=== PATIENT | female | born 1935 | race Caucasian/White ===

== ENCOUNTER 2016-08-09 15:41 | Outpatient (CLI) | payer MEDICARE, OTHER | END 2016-08-09 15:42 | disposition home or self-care (01) | DX: N18.2 Chronic kidney disease, stage 2 (mild) (principal) ==

== ENCOUNTER 2017-08-29 10:30 | Outpatient (CLI) | payer MEDICARE, OTHER ==
--- NOTE | 2017-08-29 12:46 | Ultrasound Report ---
COMPLETE ABDOMINAL ULTRASOUND: 08/29/2017 CLINICAL INDICATION: Abdominal pain. TECHNIQUE: Real-time scanning was performed with career representative static images obtained. FINDINGS: The liver measures 14.2 cm. Hepatic echogenicity is increased. There are two focal lesions seen in the right lobe of the liver, the larger anteriorly measuring 6.0 x 4.5 x 4.4 cm, and the smaller posteriorly measuring 3.0 x 2.4 x 2.2 cm. These are mildly echogenic with respect to the rest of the liver, and may represent hepatic hemangiomas. Further evaluation with liver protocol CT is recommended. The common bile duct measures 5 mm. The gallbladder is normal, as is the visualized pancreas. The kidneys are normal, with the right measuring 9.8 cm and the left measuring 9.6 cm. The spleen measures 8.4 cm, and demonstrates calcifications of old granulomatous disease. The abdominal aorta is normal in caliber. The inferior vena cava is unremarkable. No free fluid is present. Scanning of the region of pain identified by the patient in the left lower quadrant demonstrates no evidence of solid mass or hernia. IMPRESSION: POSSIBLE HEPATIC HEMANGIOMAS. FURTHER EVALUATION WITH LIVER PROTOCOL CT IS RECOMMENDED. TD: 08/29/2017 12:29 EBONY
== END 2017-08-29 10:31 | disposition home or self-care (01) ==
LOC: DI 10:30
PROVIDERS: ATTEND Internal Medicine
DX: R93.5 Abnormal findings on diagnostic imaging of other abdominal regions, including retroperitoneum (principal)
CPT/HCPCS: 76700

== ENCOUNTER 2017-09-26 08:41 | Outpatient (CLI) | END 2017-09-26 08:42 | disposition home or self-care (01) ==

== ENCOUNTER 2018-01-06 05:23 | Emergency (ER) | payer MEDICARE, OTHER ==
--- NOTE | 2018-01-06 05:39 | ED Physician Documentation ---
History of Present Illness - Stated complaint Stated Complaint: HIGH BLOOD PRESSURE - Chief complaint Chief Complaint: General - History obtained from History obtained from: Patient - History of Present Illness Timing: Yesterday - Additonal information Additional information: Patient is an 82 year old female with a history of htn, high cholesterol and arthritis who is presenting to the emergency department for elevated blood pressure. patient states that she saw a doctor yesterday and was found to be hypertensive. The doctor at that time told her to follow up with her doctor, but since it was the evening she could not get in. the doctor recommended going to the emergency department so the patient came this morning. Patient stats that she had a mild headache but denied any chest pain, shortness of breath, edema or other symptoms. Review of Systems Ten Systems: 10 systems reviewed and negative Constitutional: denies: Fever, Chills Eyes: denies: Loss of vision, Decreased vision Cardiac: denies: Chest pain / pressure, Palpitations, Pedal edema Respiratory: denies: Dyspnea, Cough GI: denies: Abdominal Pain, Nausea, Vomiting : denies: Dysuria, Frequency Musculoskeletal: denies: Neck pain, Back pain, Extremity pain, Extremity swelling Neurologic: reports: Headache. denies: Generalized weakness, Focal weakness, Numbness, Difficulty speaking, Syncope Immunocompromised: denies: Immunocompromised PD PAST MEDICAL HISTORY - Past Medical History Cardiovascular: Hypertension Endocrine/Autoimmune: Type 2 diabetes - Past Surgical History Past Surgical History: No - Present Medications Home Medications: Ambulatory Orders Medication Instructions Recorded Confirmed Lisinopril 12/24/13 12/24/13 Metformin HCl 12/24/13 12/24/13 Simvastatin 12/24/13 12/24/13 - Allergies Allergies/Adverse Reactions: Allergies Allergy/AdvReac Type Severity Reaction Status Date / Time No Known Drug Allergies Allergy Verified 01/06/18 05:33 - Social History Does the pt smoke?: No Smoking Status: Never smoker Does the pt drink ETOH?: Yes - Immunizations Immunizations are current?: Yes PD ED PE NORMAL - Vitals Vital signs reviewed: Yes - General General: Alert and oriented X 3, No acute distress - HEENT HEENT: Atraumatic, PERRL, Moist mucous membranes - Neck Neck: Supple, no meningeal sign - Cardiac Cardiac: RRR - Respiratory Respiratory: No respiratory distress - Abdomen Abdomen: Soft - Derm Derm: Normal color, Warm and dry - Extremities Extremities: No deformity, Normal ROM s pain - Neuro Neuro: Alert and oriented X 3, comic book designer 2-12 intact, No motor deficit, Normal speech Eye Opening: Spontaneous Motor: Obeys Commands Verbal: Oriented GCS Score: 15 - Psych Psych: Normal mood Results - Vitals Vitals: Vital Signs - 24 hr 01/06/18 05:30 Temperature 36.6 C Heart Rate 86 Respiratory 16 Rate Blood Pressure 234/88 H O2 Saturation 99 Oxygen O2 Source Room air - EKG (time done) 0546 Rate: Rate (enter#) (68) Rhythm: NSR [place]: Normal Intervals: Normal [place], Other (intraventricular conduction delay) QRS: Normal Ischemia: Normal ST segments PD MEDICAL DECISION MAKING - ED course Complexity details: reviewed old records, reviewed results, re-evaluated patient, considered differential, d/w patient ED course: Patient was seen and examined at bedside. patient was well appearing and in no distress. ekg was performed and showed normal sinus. labs were drawn and showed no acute abnormalities. patient's blood pressure improved on its own to 188/99. While still high no emergent intervention was indicated. patient was instructed to increase her blood pressure medication in the mornings and follow up with her doctor. patient agreed with and felt comfortable with the plan and was stable for discharge with outpatient follow up. - Sepsis Event Vital Signs: Vital Signs - 24 hr 01/06/18 05:30 Temperature 36.6 C Heart Rate 86 Respiratory 16 Rate Blood Pressure 234/88 H O2 Saturation 99 Oxygen O2 Source Room air Departure - Departure Disposition: 01 Home, Self Care Clinical Impression: Episode of hypertension Condition: Good Instructions: ED HTN Established Follow-Up: primary,care provider [Other] - Within 3 Days Comments: Your diagnostics today were within normal limits. Your blood pressure while still elevated improved a bit on its own and there is no sign of end organ damage. You should double the dose of your blood pressure medication in the morning until you can follow up with your doctor. For your arthritis you should take 650mg every 6 hours as needed for pain. You may return to the emergency department at any time for new, worsening or uncontrollable symptoms.
[2018-01-06 05:50] LABS: BASOPHILS # (AUTO) 0.1 10^3/uL (0.0-0.1); BASOPHILS % (AUTO) 1.1 %; EOSINOPHILS # (AUTO) 0.3 10^3/uL (0.0-0.7); EOSINOPHILS % (AUTO) 4.3 %; HGB - HEMOGLOBIN 13.1 g/dL (12.0-16.0); LYMPHOCYTES # (AUTO) 3.4 10^3/uL (1.5-3.5); LYMPHOCYTES % (AUTO) 41.9 %; MEAN CORPUSCULAR HEMOGLOBIN 32.8 pg (27.0-31.0); MEAN CORPUSCULAR HGB CONC 35.4 g/dL (32.0-36.0); MEAN CORPUSCULAR VOLUME 92.6 fL (81.0-99.0); MEAN PLATELET VOLUME 7.6 fL (7.9-10.8); MONOCYTES # (AUTO) 0.6 10^3/uL (0.0-1.0); MONOCYTES % (AUTO) 7.6 %; NEUTROPHILS # (AUTO) 3.6 10^3/uL (1.5-6.6); NEUTROPHILS % (AUTO) 45.1 %; PLT - PLATELET COUNT 271 10^3/uL (130-450); RED BLOOD COUNT 4.01 10^6/uL (4.20-5.40); RED CELL DISTRIBUTION WIDTH 13.2 % (12.0-15.0)
[2018-01-06 06:04] LABS: ALBUMIN 4.3 g/dL (3.2-5.5); ALBUMIN/GLOBULIN RATIO 1.3 (1.0-2.2); BILIRUBIN,TOTAL 0.8 mg/dL (0.2-1.0); CALCIUM 9.1 mg/dL (8.5-10.3); CREATININE 0.8 mg/dL (0.4-1.0); TOTAL PROTEIN 7.6 g/dL (6.7-8.2)
[2018-01-06] MEDS ORDERED: ACETAMINOPHEN 325 MG TABLET PO STA (06:12)
[2018-01-06 06:39] VITALS: BP 170/76
== END 2018-01-06 06:51 | disposition home or self-care (01) ==
LOC: ED 05:23
DX: I10 Essential (primary) hypertension (principal); I45.89 Other specified conduction disorders; E11.9 Type 2 diabetes mellitus without complications; Z79.84 Long term (current) use of oral hypoglycemic drugs
CPT/HCPCS: 36415; 80053; 83690; 83880; 84484; 85025; 93005; 99283; 99284; A9270

== ENCOUNTER 2018-12-25 13:54 | Outpatient (CLI) | payer MEDICARE, OTHER ==
--- NOTE | 2018-12-27 08:32 | DEXA Report ---
Reason: POSTMENOPAUSAL Procedure Date: 12/25/2018 Accession Number: [id number] / [id number] Procedure: DEX - Dexa Spine and/or Hip CPT Code: FULL RESULT: EXAM: Dexa Spine and/or Hip DATE: 12/25/2018 2:18 PM CLINICAL HISTORY: POSTMENOPAUSAL TECHNIQUE: Dual energy x-ray absorptiometry (DXA) was performed on a [employer] System. Regions measured are the AP Spine, femoral neck, and if needed forearm. COMPARISON: None. In accordance with the International Society for Clinical Densitometry (ISCD) guidelines, data from previous exams may be reanalyzed using current recommendations and techniques. This is done to allow a more accurate basis for comparison with the current study. FINDINGS: The data for the lumbar spine is as follows: BMD (g/cm/cm) T-SCORE Z-SCORE REGION L1 1.285 1.3 3.1 L2 1.473 2.3 4.1 L3 1.732 4.4 6.3 L4 1.695 4.1 6.0 TOTAL 1.562 3.2 5.0 NOTE: All evaluable vertebrae are used for classification The data for the hip is as follows: BMD (g/cm/cm) T-SCORE Z-SCORE REGION Neck 0.927 -0.8 1.5 TOTAL 0.939 -0.5 1.7 NOTE: The femoral neck or total proximal femur, whichever is lowest, is used for classification. IMPRESSION: THE WHO CLASSIFICATION BASED ON THE INTERNATIONAL REFERENCE STANDARD IS NORMAL. THE FRACTURE RISK IS NOT INCREASED. RECOMMENDATION: Patients with diagnosis of osteoporosis or osteopenia should have regular bone mineral density assessment. For those eligible for Medicare, routine testing is allowed once every 2 years. Testing frequency can be increased for patients who have rapidly progressing disease or for those who are receiving medical therapy to restore bone mass. COMMENT: World Health Organization (WHO) definitions for osteoporosis and osteopenia: NORMAL BMD: T-score at -1.0 or higher, fracture risk is low OSTEOPENIA BMD: T-score between -1.0 and -2.5, fracture risk is increased. OSTEOPOROSIS BMD: T-score at -2.5 or lower, fracture risk is high. National Osteoporosis Foundation recommends: 1. Obtain adequate dietary calcium (at least 1200 mg per day) and vitamin D (400-800 international units per day). 2. Participate, as appropriate, in regular weightbearing and muscle-strengthening exercise. 3. Avoid tobacco use and reduce alcohol and caffeine intake. 4. For more detailed information see the website at www.NOF.org.
== END 2018-12-25 13:55 | disposition home or self-care (01) ==
LOC: DI 13:54
PROVIDERS: ATTEND Internal Medicine
DX: N95.9 Unspecified menopausal and perimenopausal disorder (principal); Z78.0 Asymptomatic menopausal state
CPT/HCPCS: 77080

== ENCOUNTER 2019-05-28 08:28 | Outpatient (CLI) | payer MEDICARE, OTHER ==
--- NOTE | 2019-05-29 10:47 | Ultrasound Report ---
Reason: LLQ PAIN Procedure Date: 05/28/2019 Accession Number: [id number] / [id number] Procedure: US - Abdomen Complete CPT Code: Final Report FULL RESULT: EXAM: ABDOMEN ULTRASOUND EXAM DATE: 05/28/2019 09:19 AM. CLINICAL HISTORY: LLQ PAIN. COMPARISON: ABDOMEN COMPLETE 08/29/2017 10:44 AM ABDOMEN/PELVIS W/O 09/26/2017 9:12 AM. TECHNIQUE: Real-time scanning was performed with static images obtained. FINDINGS: Liver: The previously described hyperechoic mass in the right hepatic lobe is better defined on today's exam with central areas of more clearly defined hypoattenuation. It measures 4.7 x 4.4 x 4.7 cm, previously 6.0 x 4.5 x 4.4 cm. An additional hyperechoic lesion is seen posteriorly in the right hepatic lobe measures 2.5 x 2.4 x 2.2 cm, previously 3.0 x 2.4 x 2.2 cm. No internal vascularity is seen in either lesion. The overall liver echogenicity remains mildly increased. The liver measures 12.2 cm in length. Main portal vein flow: Hepatopetal. Gallbladder: Normal. No stones, wall thickening, or sonographic Mon's sign. Biliary System: Common bile duct measures 6 mm. No intrahepatic or extrahepatic ductal dilatation. Pancreas: Anechoic lesion is again seen in the midportion of the pancreas measuring 8 mm, unchanged. The visible portions of the pancreas are otherwise within normal limits.. Kidneys: Right: 9.9 cm longitudinally. Normal. No contour-deforming mass, stones, or hydronephrosis. Left: 9.8 cm longitudinally. Normal. No contour-deforming mass, stones, or hydronephrosis. Spleen: 8.9 cm. Multiple calcified granulomas are again seen throughout the spleen. Aorta and Inferior Vena Cava: Unremarkable. Other: Targeted sonographic evaluation of the left lower quadrant demonstrates no sonographic abnormalities. There is no ascites. IMPRESSION: 1. The 2 intrahepatic lesions are not significantly changed in size although the large echogenic lesion within the anterior right hepatic lobe is better defined on today's exam with increased echogenicity and more prominent central areas of hypoattenuation. Further evaluation with a liver MRI is recommended to exclude an underlying malignancy. 2. No significant change in the smaller right posterior hepatic lobe echogenic lesion. 3. Small anechoic lesion in the body of the pancreas may represent a cyst. This can also be further evaluated with the liver MRI. [facility]
== END 2019-05-28 08:29 | disposition home or self-care (01) ==
LOC: DI 08:28
PROVIDERS: ATTEND Internal Medicine
DX: R10.32 Left lower quadrant pain (principal); K76.9 Liver disease, unspecified; K86.89 Other specified diseases of pancreas
CPT/HCPCS: 76700

== ENCOUNTER 2019-10-09 10:48 | Outpatient (CLI) | payer MEDICARE, OTHER ==
--- NOTE | 2019-10-09 16:09 | CT Report ---
PROCEDURE: Abdomen/Pelvis WO INDICATIONS: ABD PAIN TECHNIQUE: Noncontrast 5 mm thick sections acquired from the diaphragms to the symphysis. 5 mm coronal and sagi ttal reformats were then performed. For radiation dose reduction, the following was used: automated exposure control, adjustment of mA and/or kV according to patient size. COMPARISON: Ultrasound abdomen 05/28/2019, 08/29/2017. CT abdomen and pelvis 09/26/2017. FINDINGS: Image quality: Excellent. ABDOMEN: Lung bases: There is a 3 mm nodule in the right lower lobe, stable since 09/26/2017, most likely benig n. Heart size is normal. Solid organs: There is a 4.8 cm diameter hypodense mass in the anterior segment of the right hepatic lobe and a 2.2 cm hypodense mass in the left hepatic lobe. Both are present on 09/26/2017 and appear minimally changed in size. Liver and spleen are normal in size. There are multiple calcified granulo mas in spleen. Gallbladder is normal Pancreas is normal in contours. No adrenal nodules. Kidneys a re normal in size, without hydronephrosis or nephrolithiasis. Peritoneum and bowel: There is thickening of rectum. Unenhanced bowel loops otherwise demonstrate nor mal wall thickness and caliber. No free fluid or air. Nodes and vessels: No retroperitoneal or mesenteric adenopathy by size criteria. Aorta and inferior vena cava are normal in caliber. Miscellaneous: There is a tiny fat-containing umbilical hernia. PELVIS: Genitourinary: Bladder wall thickness is normal. Miscellaneous: No inguinal hernias or adenopathy. Bones: No suspicious bony lesions. No vertebral body compression fractures. IMPRESSION: 1. Thickening of rectum. Differential diagnoses include mass versus artifact. Recommend endoscopic ex amination for further evaluation. 2. Two masses in liver are overall stable in size since 09/26/2017. Both are incompletely evaluated in the absence of IV contrast; but stability suggests benign process such as hepatic hemangiomas. If cl inically indicated, CT or MRI using liver protocol is suggested for further evaluation. 3. Remote granulomatous disease of spleen. Reviewed by: Ash Denise MD on 10/09/2019 4:07 PM PDT Approved by: Ash Denise MD on 10/09/2019 4:07 PM PDT Station ID: [id number]
== END 2019-10-09 10:49 | disposition home or self-care (01) ==
LOC: DI 10:48
PROVIDERS: ATTEND Internal Medicine
DX: R93.3 Abnormal findings on diagnostic imaging of other parts of digestive tract (principal); R16.0 Hepatomegaly, not elsewhere classified; D73.89 Other diseases of spleen
CPT/HCPCS: 74176

== ENCOUNTER 2019-10-15 14:55 | Outpatient (CLI) | payer MEDICARE, OTHER ==
--- NOTE | 2019-10-15 17:30 | XRAY Report ---
PROCEDURE: Tib/Fib RT INDICATIONS: RT ARTHRALGIA OF KNEE/PATELLA/TIBIA,FIBULA TECHNIQUE: 2 views of the tibia and fibula were acquired. COMPARISON: X-ray knee 10/15/2019 FINDINGS: Bones: No fractures or dislocations. No suspicious bony lesions. Degenerative changes are noted wi thin the medial and lateral compartments of the knee. Soft tissues: No suspicious soft tissue calcifications or masses. IMPRESSION: Degenerative changes at the knee. Tibia-fibula are unremarkable. Reviewed by: Mariana Scherer MD on 10/15/2019 5:28 PM PDT Approved by: Mariana Scherer MD on 10/15/2019 5:28 PM PDT Station ID: [id number]
--- NOTE | 2019-10-15 17:31 | XRAY Report ---
PROCEDURE: Knee 3 View RT INDICATIONS: RT ARTHRALGIA OF KNEE/PATELLA/TIBIA,FIBULA TECHNIQUE: 3 views of the right knee(s) were acquired. COMPARISON: X-ray tibia-fibula 10/15/2019 FINDINGS: Bones: No fractures or dislocations. No suspicious bony lesions. There is mild medial, mild to mod erate lateral and patellofemoral compartment narrowing. Minimal periarticular osteophytes are present . No erosions. Soft tissues: Mild joint effusion. No suspicious soft tissue calcifications. IMPRESSION: Osteoarthritic changes as above. Reviewed by: Mariana Scherer MD on 10/15/2019 5:29 PM PDT Approved by: Mariana Scherer MD on 10/15/2019 5:29 PM PDT Station ID: [id number]
== END 2019-10-15 14:56 | disposition home or self-care (01) ==
LOC: DI 14:55
PROVIDERS: ATTEND Internal Medicine
DX: M17.11 Unilateral primary osteoarthritis, right knee (principal)

== ENCOUNTER 2020-12-01 13:20 | Outpatient (CLI) | payer MEDICARE, OTHER ==
--- NOTE | 2020-12-01 15:17 | XRAY Report ---
PROCEDURE: Chest 2 View X-Ray INDICATIONS: CHEST PAIN TECHNIQUE: 2 view(s) of the chest. COMPARISON: None. FINDINGS: Surgical changes and devices: None. Lungs and pleura: No pleural effusions or pneumothorax. Mild hyperinflation is seen. No definite foc al infiltrate. Increased rhonchal vascular markings in bilateral hilar region are noted. Mediastinum: Mediastinal contours are normal. Heart size is normal. Bones and chest wall: No suspicious bony abnormalities. Soft tissues appear unremarkable. IMPRESSION: Finding may represent mild reactive airway disease such as bronchitis. No definite focal infiltrate. No pleural effusion or pneumothorax. Mild hyperinflation. Reviewed by: Kendell Bunch MD on 12/01/2020 3:16 PM PDT Approved by: Kendell Bunch MD on 12/01/2020 3:16 PM PDT Station ID: [id number]
== END 2020-12-01 13:21 | disposition home or self-care (01) ==
LOC: DI 13:20
PROVIDERS: ATTEND Internal Medicine
DX: R07.9 Chest pain, unspecified (principal); R91.8 Other nonspecific abnormal finding of lung field

== ENCOUNTER 2021-01-21 16:47 | Outpatient (CLI) | payer MEDICARE, OTHER | END 2021-01-21 16:48 | disposition short-term general hospital (02) | LOC: EMS 16:47 | DX: Z04.1 Encounter for examination and observation following transport accident (principal); R41.0 Disorientation, unspecified | CPT/HCPCS: A0425; A0427 ==

== ENCOUNTER 2021-02-13 21:39 | Outpatient (CLI) | payer MEDICARE, OTHER | END 2021-02-13 21:40 | disposition critical access hospital (66) | LOC: EMS 21:39 | DX: R41.82 Altered mental status, unspecified (principal) | CPT/HCPCS: A0425; A0429 ==

== ENCOUNTER 2021-02-13 22:01 | Emergency (ER) | payer MEDICARE, OTHER ==
--- NOTE | 2021-02-13 22:26 | ED Physician Documentation ---
History of Present Illness - Stated complaint Stated Complaint: AMS - Chief complaint Chief Complaint: Neuro - History obtained from History obtained from: Patient, EMS, Other (chart review) - Additonal information Additional information: 85-year-old woman with a history of high blood pressure, high cholesterol, arthritis, diabetes, presents with possible altered mental status this evening. Patient was at the [employer] bar and dancing and brought a bottle of Chinese use. She reports having 2 vodka drinks and is unsure why she is here. Patient states that she feels fine and is asymptomatic. Clinically intoxicated. EMS reports that her friends called 911 because she was not acting like herself. When they arrived on scene she was in a seated position with her head laying on a table. Further information limited by patient intoxication. Review of Systems Unable to obtain: Intoxicated PD PAST MEDICAL HISTORY - Past Medical History Past Medical History: Yes Cardiovascular: Hypertension, High cholesterol Endocrine/Autoimmune: Type 2 diabetes - Past Surgical History Past Surgical History: No Ortho: Knee replacement - Present Medications Home Medications: Ambulatory Orders Medication Instructions Recorded Confirmed Metformin HCl 12/24/13 12/24/13 Simvastatin 12/24/13 12/24/13 [id number] [Lisinopril] 12/24/13 12/24/13 - Allergies Allergies/Adverse Reactions: Allergies Allergy/AdvReac Type Severity Reaction Status Date / Time No Known Drug Allergies Allergy Verified 01/06/18 05:33 - Social History Does the pt smoke?: No Smoking Status: Never smoker Does the pt drink ETOH?: Yes Does the pt have substance abuse?: No - Immunizations Immunizations are current?: Yes PD ED PE NORMAL - Vitals Vital signs reviewed: Yes - General General: No acute distress, Well developed/nourished, Other (appears clinically intoxicated. lert, sitting up in bed. confused about why she is here) - HEENT HEENT: Atraumatic, PERRL, EOMI, Moist mucous membranes, Pharynx benign - Neck Neck: Supple, no meningeal sign - Cardiac Cardiac: RRR - Respiratory Respiratory: No respiratory distress, Clear bilaterally - Abdomen Abdomen: Non tender, Non distended - Derm Derm: Normal color, Warm and dry - Extremities Extremities: No deformity - Neuro Neuro: supervisor production managing 2-12 intact, No motor deficit, No sensory deficit, Normal speech Eye Opening: Spontaneous Motor: Obeys Commands Verbal: Confused GCS Score: 14 - Psych Psych: Normal mood, Normal affect Results - Vitals Vitals: Vital Signs - 24 hr 02/13/21 02/13/21 22:09 23:21 Temperature 35.9 C L Heart Rate 61 Respiratory 20 Rate Blood Pressure 141/72 H O2 Saturation 95 86 L Oxygen O2 Source Room air - EKG (time done) 2222 Rate: Rate (enter#) (65) Rhythm: NSR [place]: Normal Intervals: Normal [place] QRS: Normal Ischemia: Normal ST segments Computer interpretation: Agree with computer - Labs Labs: Laboratory Tests 02/13/21 02/13/21 02/13/21 22:27 22:27 23:35 WBC 8.7 RBC 3.72 L Hgb 11.7 L Hct 35.3 L MCV 94.9 MCH 31.5 H MCHC 33.1 RDW 13.3 Plt Count 281 MPV 9.5 Neut # (Auto) 4.0 Lymph # (Auto) 3.7 H [place] # (Auto) 0.6 Eos # (Auto) 0.2 Baso # (Auto) 0.1 Absolute Nucleated RBC 0.00 Nucleated RBC % 0.0 Sodium 132 L Potassium 3.6 Chloride 97 L Carbon Dioxide 22 Anion Gap 13.0 BUN 25 H Creatinine 1.1 H Estimated GFR (MDRD) 47 L Glucose 178 H Calcium 8.5 Total Bilirubin 0.5 AST 14 ALT 11 Alkaline Phosphatase 48 Total Protein 6.8 Albumin 3.8 Globulin 3.0 Albumin/Globulin Ratio 1.3 Lipase 29 Urine Opiates Screen NEGATIVE Ur Oxycodone Screen NEGATIVE Urine Methadone Screen NEGATIVE Ur Propoxyphene Screen NEGATIVE Ur Barbiturates Screen NEGATIVE Ur Tricyclics Screen NEGATIVE Ur Phencyclidine Scrn NEGATIVE Ur Amphetamine Screen NEGATIVE U Methamphetamines Scrn NEGATIVE U Benzodiazepines Scrn NEGATIVE Urine Cocaine Screen NEGATIVE U Cannabinoids Screen NEGATIVE Ethyl Alcohol 226.0 PD MEDICAL DECISION MAKING - ED course ED course: d/w Liam (friend) who states her daughter Trinh [phone] was at the dance and called and told her the patient was "not acting herself". Patient is diabetic. She was brought to the [facility] by Matt and Mary [phone]. Attempted to call both Trinh and Mary but was unable to reach either to ascertain what happened. d/w Trinh who states Gutierrez called 911. patient was dancing and they came to get Trinh and she came out to the dance floor and said she wasn't acting right. She had her head down and was leaning over and wobbly. They said she didn't drink a lot of alcohol and didn't think she was drunk but she was acting out of it. d/w Matt [phone] who states he was the one who called 911. He was concerned there might be a medical cause for her symptoms and did not think she has more than a couple drinks. Dr. Cummings is her pcp. spoke with Trinh again after getting patient permission to discuss medical info. Trinh will come bring her home. clinically sober at this time. Made both patient and Trinh aware she will need follow up with Dr. Cummings for thyroid ultrasound, anemia workup, and possible further neurologic testing. Likely the etiology for all her symptoms was alcohol given the extremely high alcohol level. Advised patient to cut back on alcohol intake in future. Strict return precautions discussed. Departure - Departure Disposition: 01 Home, Self Care Clinical Impression: Alcohol intoxication Condition: Stable Instructions: ED Alcohol Intoxication Comments: You were seen in the emergency department for evaluation of wobbliness, possible confusion, and slurred speech. Your alcohol level was very high in the emergency department and you appeared intoxicated on arrival. You underwent a medical workup to rule out medical causes of your symptoms such as diabetes related emergency or stroke. Your CT of the head and neck showed no signs of stroke and your neurological exam showed no signs of stroke. It did however show a thyroid mass and you should follow up with Dr. Cummings for an outpatient thyroid ultrasound. You also have mild anemia on your labwork and should follow up with Dr. Cummings about that. Return to the emergency department if you have any new or worsening symptoms or other concerns.
[2021-02-13] MEDS ORDERED: ONDANSETRON 4 MG/2 ML VIAL IVP STA (22:30)
[2021-02-13] MEDS ORDERED: SODIUM CHLORIDE 0.9% 1,000 ML IV STA (22:31)
[2021-02-13 22:37] LABS: BASOPHILS # (AUTO) 0.1 10^3/uL (0.0-0.1); BASOPHILS % (AUTO) 1.2 %; EOSINOPHILS # (AUTO) 0.2 10^3/uL (0.0-0.7); EOSINOPHILS % (AUTO) 2.4 %; HCT - HEMATOCRIT 35.3 % (37.0-47.0); HGB - HEMOGLOBIN 11.7 g/dL (12.0-16.0); LYMPHOCYTES # (AUTO) 3.7 10^3/uL (1.5-3.5); LYMPHOCYTES % (AUTO) 42.7 %; MEAN CORPUSCULAR HEMOGLOBIN 31.5 pg (27.0-31.0); MEAN CORPUSCULAR HGB CONC 33.1 g/dL (32.0-36.0); MEAN CORPUSCULAR VOLUME 94.9 fL (81.0-99.0); MEAN PLATELET VOLUME 9.5 fL (7.9-10.8); MONOCYTES # (AUTO) 0.6 10^3/uL (0.0-1.0); MONOCYTES % (AUTO) 7.1 %; NEUTROPHILS % (AUTO) 46.3 %; PLT - PLATELET COUNT 281 10^3/uL (130-450); RED BLOOD COUNT 3.72 10^6/uL (4.20-5.40); RED CELL DISTRIBUTION WIDTH 13.3 % (12.0-15.0); WHITE BLOOD COUNT 8.7 x10^3/uL (4.8-10.8)
[2021-02-13] MEDS ORDERED: IOVERSOL 320 100 ML VIAL IVP ONE ×2 (22:39→23:12)
[2021-02-13 22:44] LABS: ALBUMIN 3.8 g/dL (3.2-5.5); ALBUMIN/GLOBULIN RATIO 1.3 (1.0-2.2); BILIRUBIN,TOTAL 0.5 mg/dL (0.2-1.0); CALCIUM 8.5 mg/dL (8.5-10.3); CREATININE 1.1 mg/dL (0.4-1.0); POTASSIUM 3.6 mmol/L (3.5-5.0); TOTAL PROTEIN 6.8 g/dL (6.7-8.2)
[2021-02-14 00:01] LABS: MUDS CUTOFF CONCENTRATIONS CUTOFF CONC BELOW:
[2021-02-14 00:11] LABS: AMPHETAMINE SCREEN,URINE NEGATIVE (NEGATIVE); BARBITURATE SCREEN,UR NEGATIVE (NEGATIVE); BENZODIAZEPINES SCREEN, URINE NEGATIVE (NEGATIVE); COCAINE SCREEN URINE NEGATIVE (NEGATIVE); METHADONE SCREEN, URINE NEGATIVE (NEGATIVE); METHAMPHETAMINES SCREEN, URINE NEGATIVE (NEGATIVE); OPIATE SCREEN, URINE NEGATIVE (NEGATIVE); OXYCODONE SCREEN, URINE NEGATIVE (NEGATIVE); PROPOXYPHENE SCREEN, URINE NEGATIVE (NEGATIVE); THC CANNABINOID SCREEN, URINE NEGATIVE (NEGATIVE); TRICYCLIC ANTIDEPRESSANT,URINE NEGATIVE (NEGATIVE)
--- NOTE | 2021-02-14 00:18 | CT Report ---
PROCEDURE: ANGIO HEAD W/WO INDICATIONS: AMS/possible intox CONTRAST: IV CONTRAST: Optiray 320 ml: 100 PO CONTRAST: *NO PO CONTRAST TECHNIQUE: Precontrast 4.5 mm thick angled axial sections acquired from the foramen magnum to the vertex. Afte r the administration of intravenous contrast, 1 mm thick sections acquired through the [place] of [place] is. Postcontrast 4.5 mm thick sections then re-acquired from the foramen magnum to the vertex. 3-di mensional ovexnqr-wpuugogrx-mvdmptrpen (MIP) and/or volume rendering reformats were acquired of the c entral intracranial vasculature. For radiation dose reduction, the following was used: automated ex posure control, adjustment of mA and/or kV according to patient size. COMPARISON: None FINDINGS: Image quality: Excellent. Anterior circulation: Intracranial internal carotid arteries have atherosclerotic calcifications wit h mild to moderate stenosis but otherwise are normal in size and flow. The flow within the paired an terior cerebral arteries is normal and symmetric. The flow within the middle cerebral arteries is no rmal and symmetric. The anterior communicating artery is seen. No aneurysms are seen. Posterior circulation: Visualized portions of the vertebral arteries demonstrate normal caliber, and join to form a normal appearing basilar artery. Flow within the posterior cerebral arteries is norm al and symmetric. No aneurysms are seen. CSF spaces: Ventricles are normal in size and shape. Basal cisterns are patent. No extra-axial flu id collections. Brain: No midline shift. No intracranial bleeds or masses. Subcortical and periventricular hypodens ities are consistent with microvascular ischemic disease. Microvascular ischemic disease and age-rela villa cerebral volume loss. Burch-white matter interface appears intact. Skull and face: Calvarium and facial bones appear intact, without suspicious lesions. The right thy roid lobe has a 2.4 x 2.4 x 4.5 cm enhancing nodule. Recommend thyroid ultrasound. Sinuses: Visualized sinuses and mastoids are clear. IMPRESSION: 1. No acute intracranial abnormality. 2. 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 3. 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 Recommend follow-up thyroid ultrasound. Reviewed by: Remy Schultz on 02/14/2021 12:17 AM PST Approved by: Remy Schultz on 02/14/2021 12:17 AM PST Station ID: [id number]
--- NOTE | 2021-02-14 00:23 | CT Report ---
PROCEDURE: ANGIO NECK W INDICATIONS: AMS/possible intox CONTRAST: IV CONTRAST: Optiray 320 ml: 100 PO CONTRAST: *NO PO CONTRAST TECHNIQUE: After the administration of intravenous contrast, 1.5 mm axial sections acquired from the aortic arch to the [place]. Coronal 3-D maximum intensity projection (MIP) and/or volume rendering ref ormats were then performed. For radiation dose reduction, the following was used: automated exposur e control, adjustment of mA and/or kV according to patient size. COMPARISON: None. FINDINGS: Image quality: Excellent. Carotid system: The great vessels demonstrate a conventional anatomy as they arise from the aortic a [facility]. The origins of the common carotid arteries appear patent. The common carotid arteries demonstr ate normal calibers and courses. The bifurcation regions appear normal bilaterally. The internal ca rotid arteries demonstrate normal caliber and course. Posterior circulation: The origins of the vertebral arteries appear patent. The more superior porti ons of the vertebral arteries demonstrate normal course and caliber. They join to form a normal appe aring basilar artery. Soft tissues: No cervical adenopathy or mass. The right thyroid lobe has a 2.4 x 2.4 x 4.5 cm enhanc ing nodule. Recommend thyroid ultrasound. Bibasilar atelectasis. Bones: No suspicious bony lesions. Visualized cervical spine appears normally aligned. IMPRESSION: 1. No acute intracranial abnormality. 2. 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 3. 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 Recommend follow-up thyroid ultrasound. Reviewed by: Remy Schultz on 02/14/2021 12:22 AM [facility] Approved by: Remy Schultz on 02/14/2021 12:22 AM PST Station ID: [id number]
[2021-02-14 01:04] VITALS: BP 120/57
== END 2021-02-14 01:20 | disposition home or self-care (01) ==
LOC: EDUNIT# → ED 22:01 → SUPCPDRO 22:01 → ED 02-14 01:20
DX: F10.929 Alcohol use, unspecified with intoxication, unspecified (principal); E11.9 Type 2 diabetes mellitus without complications; I10 Essential (primary) hypertension; E78.00 Pure hypercholesterolemia, unspecified; Z79.84 Long term (current) use of oral hypoglycemic drugs; Z79.899 Other long term (current) drug therapy
CPT/HCPCS: 36415; 70496; 70498; 80053; 80306; 83690; 85025; 93005; 96374; 99283; 99284; G0480; Q9967; 80320

== ENCOUNTER 2022-08-22 17:50 | Outpatient (CLI) | payer MEDICARE, OTHER | END 2022-08-22 17:51 | disposition short-term general hospital (02) | LOC: EMS 17:50 | DX: R42 Dizziness and giddiness (principal); R11.2 Nausea with vomiting, unspecified | CPT/HCPCS: A0425; A0427 ==

== ENCOUNTER 2022-09-14 07:46 | Outpatient (CLI) | payer MEDICARE, OTHER | END 2022-09-14 23:59 | disposition critical access hospital (66) | LOC: EMS 07:46 | DX: R40.20 Unspecified coma (principal) | CPT/HCPCS: A0425; A0433 ==

== ENCOUNTER 2022-09-14 08:00 | Emergency (ER) | payer MEDICARE, OTHER ==
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
[2022-09-14] MEDS ORDERED: MIDAZOLAM 2 MG/2 ML VIAL IVP STA (08:17)
[2022-09-14 08:22] LABS: BASOPHILS # (AUTO) 0.1 10^3/uL (0.0-0.1); BASOPHILS % (AUTO) 1.1 %; EOSINOPHILS # (AUTO) 0.3 10^3/uL (0.0-0.7); EOSINOPHILS % (AUTO) 3.3 %; HCT - HEMATOCRIT 36.5 % (37.0-47.0); HGB - HEMOGLOBIN 12.1 g/dL (12.0-16.0); LYMPHOCYTES # (AUTO) 2.4 10^3/uL (1.5-3.5); LYMPHOCYTES % (AUTO) 23.2 %; MEAN CORPUSCULAR HEMOGLOBIN 30.5 pg (27.0-31.0); MEAN CORPUSCULAR HGB CONC 33.2 g/dL (32.0-36.0); MEAN CORPUSCULAR VOLUME 91.9 fL (81.0-99.0); MEAN PLATELET VOLUME 9.5 fL (7.9-10.8); MONOCYTES # (AUTO) 0.5 10^3/uL (0.0-1.0); MONOCYTES % (AUTO) 4.9 %; PLT - PLATELET COUNT 267 10^3/uL (130-450); RED BLOOD COUNT 3.97 10^6/uL (4.20-5.40); RED CELL DISTRIBUTION WIDTH 12.9 % (12.0-15.0); WHITE BLOOD COUNT 10.4 x10^3/uL (4.8-10.8)
[2022-09-14] MEDS ORDERED: PROPOFOL 1000 MG/100 ML 1,000 MG/100 ML BOTTLE IV STA (08:28)
[2022-09-14 08:30] LABS: INR 1.1 (0.8-1.2); PT - PROTHROMBIN TIME 12.4 secs (9.9-12.6)
[2022-09-14 08:35] LABS: ALBUMIN 3.8 g/dL (3.2-5.5); ALBUMIN/GLOBULIN RATIO 1.1 (1.0-2.2); ALKALINE PHOSPHATASE 46 IU/L (42-121); ALT ALANINE AMINOTRANSFERASE 14 IU/L (10-60); AST ASPARTATE AMINOTRANSFERASE 18 IU/L (10-42); BILIRUBIN,TOTAL 0.8 mg/dL (0.2-1.0); BUN - BLOOD UREA NITROGEN 25 mg/dL (6-20); CALCIUM 8.8 mg/dL (8.5-10.3); CARBON DIOXIDE - CO2 21 mmol/L (21-32); CHLORIDE 107 mmol/L (101-111); CREATININE 1.2 mg/dL (0.4-1.0); ETOH - ETHANOL < 5.0 mg/dL; GFR - MDRD 42 (>89); GLUCOSE 227 mg/dL (70-100); LIPASE 31 U/L (22-51); SODIUM 137 mmol/L (135-145); TOTAL PROTEIN 7.3 g/dL (6.7-8.2)
--- NOTE | 2022-09-14 08:35 | XRAY Report ---
PROCEDURE: Chest 1 View X-Ray INDICATIONS: chest pain TECHNIQUE: One view of the chest was acquired. COMPARISON: 11/21/2020. FINDINGS: Surgical changes and devices: ET tube tip is at the franco, and should be retracted. Lungs and pleura: No pleural effusions or pneumothorax. There is some left-sided volume loss and lef t basilar atelectasis. Mediastinum: Mediastinal contours appear normal. Heart size is normal. Bones and chest wall: No suspicious bony lesions. Overlying soft tissues appear unremarkable. IMPRESSION: 1. ET tube at the franco, should be retracted. 2. Left-sided volume loss and left basilar atelectasis. Reviewed by: Aaron Alford MD on 09/14/2022 8:33 AM PDT Approved by: Aaron Alford MD on 09/14/2022 8:33 AM PDT Station ID: [id number]
[2022-09-14] MEDS ORDERED: PROPOFOL 200 MG/20 ML VIAL IVP STA ×2 (08:42→09:14)
[2022-09-14 08:55] LABS: MUDS CUTOFF CONCENTRATIONS CUTOFF CONC BELOW:
--- NOTE | 2022-09-14 09:01 | XRAY Report ---
PROCEDURE: Chest for Line Placement INDICATIONS: OJ placement check TECHNIQUE: One view of the chest was acquired. COMPARISON: None. FINDINGS: Surgical changes and devices: Interval retraction of the endotracheal tube, projecting 2.8 cm above the franco. Feeding tube passes below the diaphragm. Lungs and pleura: No pleural effusions or pneumothorax. Right apical lesion. Mediastinum: Mediastinal contours appear normal. Heart size is normal. Bones and chest wall: No suspicious bony lesions. Overlying soft tissues appear unremarkable. IMPRESSION: Appropriate placement of the gastric tube. Endotracheal tube tip projects 2.8 cm above the franco, within the appropriate position. Stable right apical lesion, possibly the thyroid. Consider nonemergent follow-up with chest CT. Reviewed by: Naveed Ortiz on 09/14/2022 9:00 AM PDT Approved by: Naveed Ortiz on 09/14/2022 9:00 AM PDT Station ID: [id number]
[2022-09-14 09:05] LABS: BILIRUBIN,URINE NEGATIVE (NEGATIVE); GLUCOSE, URINE (UA) 100 mg/dL (NEGATIVE); KETONES,URINE (UA) NEGATIVE (NEGATIVE); LEUKOCYTE ESTERASE, URINE NEGATIVE (NEGATIVE); NITRITE,URINE POSITIVE (NEGATIVE); OCCULT BLOOD,URINE SMALL (NEGATIVE); PH,URINE 6.5 PH (5.0-7.5); PROTEIN,URINE 30 mg/dL (NEGATIVE); UROBILINOGEN,URINE 0.2 (NORMAL) E.U./dL (NORMAL)
[2022-09-14 09:06] LABS: CLARITY,URINE CLEAR (CLEAR)
--- OUTSIDE RECORDS SUMMARY | 2022-09-14 09:07 | EXTERNAL MEDICAL SUMMARY RPT | Continuity of Care Document ---
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 Name Role Phone Godwin Cummings Unavailable Unavailable Allergies and Intolerances date description facility type (no date) No Known Drug Allergies [facility] ( unknown) Problems date description facility 2022-08-22 00:00 [facility] Procedures date description facility 2022-08-22 00:00 X-ray of chest, single [facility] 2022-08-22 00:00 Computed tomography angiography of head and neck vessels with contrast [facility] Results/Labs test date author facility value unit interpretation Result panel 1 (unknown) (no date) (unknown) [facility] (no value) (units unknown) (unknown) Result panel 2 (unknown) (no date) (unknown) [facility] (no value) (units unknown) (unknown) Result panel 3 (unknown) (no date) (unknown) [facility] (no value) (units unknown) (unknown) Result panel 4 (unknown) (no date) (unknown) [facility] (no value) (units unknown) (unknown) Result panel 5 (unknown) (no date) (unknown) [facility] (no value) (units unknown) (unknown) Result panel 6 (unknown) (no date) (unknown) [facility] (no value) (units unknown) (unknown) Result panel 7 (unknown) (no date) (unknown) [facility] (no value) (units unknown) (unknown) Result panel 8 (unknown) (no date) (unknown) [facility] (no value) (units unknown) (unknown) Result panel 9 (unknown) (no date) (unknown) [facility] (no value) (units unknown) (unknown) Result panel 10 (unknown) (no date) (unknown) [facility] (no value) (units unknown) (unknown) Result panel 11 (unknown) (no date) (unknown) [facility] (no value) (units unknown) (unknown) Result panel 12 (unknown) (no date) (unknown) [facility] (no value) (units unknown) (unknown) Result panel 13 (unknown) (no date) (unknown) [facility] (no value) (units unknown) (unknown) Result panel 14 (unknown) (no date) (unknown) [facility] (no value) (units unknown) (unknown) Result panel 15 (unknown) (no date) (unknown) [facility] (no value) (units unknown) (unknown) Result panel 16 (unknown) (no date) (unknown) [facility] (no value) (units unknown) (unknown) Result panel 17 (unknown) (no date) (unknown) [facility] (no value) (units unknown) (unknown) Result panel 18 (unknown) (no date) (unknown) [facility] (no value) (units unknown) (unknown) Result panel 19 (unknown) (no date) (unknown) [facility] (no value) (units unknown) (unknown) Result panel 20 (unknown) (no date) (unknown) [facility] (no value) (units unknown) (unknown) Result panel 21 (unknown) (no date) (unknown) [facility] (no value) (units unknown) (unknown) Result panel 22 (unknown) (no date) (unknown) [facility] (no value) (units unknown) (unknown) Result panel 23 (unknown) (no date) (unknown) [facility] (no value) (units unknown) (unknown) Result panel 24 (unknown) (no date) (unknown) [facility] (no value) (units unknown) (unknown) Result panel 25 (unknown) (no date) (unknown) [facility] (no value) (units unknown) (unknown) Result panel 26 (unknown) (no date) (unknown) [facility] (no value) (units unknown) (unknown) Result panel 27 (unknown) (no date) (unknown) [facility] (no value) (units unknown) (unknown) Result panel 28 (unknown) (no date) (unknown) [facility] (no value) (units unknown) (unknown) Result panel 29 (unknown) (no date) (unknown) [facility] (no value) (units unknown) (unknown) Result panel 30 (unknown) (no date) (unknown) [facility] (no value) (units unknown) (unknown) Result panel 31 (unknown) (no date) (unknown) [facility] (no value) (units unknown) (unknown) Result panel 32 (unknown) (no date) (unknown) [facility] (no value) (units unknown) (unknown) Result panel 33 (unknown) (no date) (unknown) [facility] (no value) (units unknown) (unknown) Result panel 34 (unknown) (no date) (unknown) [facility] (no value) (units unknown) (unknown) Result panel 35 (unknown) (no date) (unknown) [facility] (no value) (units unknown) (unknown) Result panel 36 (unknown) (no date) (unknown) [facility] (no value) (units unknown) (unknown) Result panel 37 (unknown) (no date) (unknown) [facility] (no value) (units unknown) (unknown) Result panel 38 (unknown) (no date) (unknown) [facility] (no value) (units unknown) (unknown) Result panel 39 (unknown) (no date) (unknown) [facility] (no value) (units unknown) (unknown) Result panel 40 (unknown) (no date) (unknown) [facility] (no value) (units unknown) (unknown) Result panel 41 (unknown) (no date) (unknown) [facility] (no value) (units unknown) (unknown) Result panel 42 (unknown) (no date) (unknown) [facility] (no value) (units unknown) (unknown) Result panel 43 (unknown) (no date) (unknown) [facility] (no value) (units unknown) (unknown) Result panel 44 (unknown) (no date) (unknown) [facility] (no value) (units unknown) (unknown) Result panel 45 (unknown) (no date) (unknown) [facility] (no value) (units unknown) (unknown) Result panel 46 (unknown) (no date) (unknown) [facility] (no value) (units unknown) (unknown) Result panel 47 (unknown) (no date) (unknown) [facility] (no value) (units unknown) (unknown) Result panel 48 (unknown) (no date) (unknown) [facility] (no value) (units unknown) (unknown) Result panel 49 (unknown) (no date) (unknown) [facility] (no value) (units unknown) (unknown) Result panel 50 (unknown) (no date) (unknown) [facility] (no value) (units unknown) (unknown) Result panel 51 (unknown) (no date) (unknown) [facility] (no value) (units unknown) (unknown) Result panel 52 (unknown) (no date) (unknown) [facility] (no value) (units unknown) (unknown) Result panel 53 (unknown) (no date) (unknown) [facility] (no value) (units unknown) (unknown) Result panel 54 (unknown) (no date) (unknown) [facility] (no value) (units unknown) (unknown) Result panel 55 (unknown) (no date) (unknown) [facility] (no value) (units unknown) (unknown) Result panel 56 (unknown) (no date) (unknown) [facility] (no value) (units unknown) (unknown) Result panel 57 (unknown) (no date) (unknown) [facility] (no value) (units unknown) (unknown) Result panel 58 (unknown) (no date) (unknown) [facility] (no value) (units unknown) (unknown) Result panel 59 (unknown) (no date) (unknown) [facility] (no value) (units unknown) (unknown) Result panel 60 (unknown) (no date) (unknown) [facility] (no value) (units unknown) (unknown) Result panel 61 (unknown) (no date) (unknown) [facility] (no value) (units unknown) (unknown) Result panel 62 (unknown) (no date) (unknown) [facility] (no value) (units unknown) (unknown) Result panel 63 (unknown) (no date) (unknown) [facility] (no value) (units unknown) (unknown) Result panel 64 (unknown) (no date) (unknown) [facility] (no value) (units unknown) (unknown) Result panel 65 (unknown) (no date) (unknown) [facility] (no value) (units unknown) (unknown) Result panel 66 (unknown) (no date) (unknown) [facility] (no value) (units unknown) (unknown) Result panel 67 (unknown) (no date) (unknown) [facility] (no value) (units unknown) (unknown) Result panel 68 (unknown) (no date) (unknown) [facility] (no value) (units unknown) (unknown) Result panel 69 (unknown) (no date) (unknown) [facility] (no value) (units unknown) (unknown) Result panel 70 (unknown) (no date) (unknown) [facility] (no value) (units unknown) (unknown) Result panel 71 (unknown) (no date) (unknown) [facility] (no value) (units unknown) (unknown) Result panel 72 (unknown) (no date) (unknown) [facility] (no value) (units unknown) (unknown) Result panel 73 (unknown) (no date) (unknown) [facility] (no value) (units unknown) (unknown) Result panel 74 (unknown) (no date) (unknown) [facility] (no value) (units unknown) (unknown) Result panel 75 (unknown) (no date) (unknown) [facility] (no value) (units unknown) (unknown) Result panel 76 (unknown) (no date) (unknown) [facility] (no value) (units unknown) (unknown) Result panel 77 (unknown) (no date) (unknown) [facility] (no value) (units unknown) (unknown) Result panel 78 (unknown) (no date) (unknown) [facility] (no value) (units unknown) (unknown) Result panel 79 (unknown) (no date) (unknown) [facility] (no value) (units unknown) (unknown) Result panel 80 (unknown) (no date) (unknown) [facility] (no value) (units unknown) (unknown) Result panel 81 (unknown) (no date) (unknown) [facility] (no value) (units unknown) (unknown) Result panel 82 (unknown) (no date) (unknown) [facility] (no value) (units unknown) (unknown) Result panel 83 (unknown) (no date) (unknown) [facility] (no value) (units unknown) (unknown) Result panel 84 (unknown) (no date) (unknown) [facility] (no value) (units unknown) (unknown) Result panel 85 (unknown) (no date) (unknown) [facility] (no value) (units unknown) (unknown) Result panel 86 (unknown) (no date) (unknown) [facility] (no value) (units unknown) (unknown) Result panel 87 (unknown) (no date) (unknown) [facility] (no value) (units unknown) (unknown) Result panel 88 (unknown) (no date) (unknown) [facility] (no value) (units unknown) (unknown) Result panel 89 (unknown) (no date) (unknown) [facility] (no value) (units unknown) (unknown) Result panel 90 (unknown) (no date) (unknown) [facility] (no value) (units unknown) (unknown) Result panel 91 (unknown) (no date) (unknown) (unknown) (no value) (units unknown) (unknown) (unknown) (no date) (unknown) (unknown) 08/22/22 (units unknown) (unknown) (unknown) (no date) (unknown) (unknown) [address] [place] [address] (units unknown) (unknown) (unknown) (no date) (unknown) (unknown) : [id number] (units unknown) (unknown) (unknown) (no date) (unknown) (unknown) Accession Number: [id number] (units unknown) (unknown) (unknown) (no date) (unknown) (unknown) Age/Sex: 87 / F Date of Service: (units unknown) (unknown) (unknown) (no date) (unknown) (unknown) [place] [address] (units unknown) (unknown) (unknown) (no date) (unknown) (unknown) Approved by: Bobo Terrazas M.D. on 08/22/2022 at 19:29 (units unknown) (unknown) (unknown) (no date) (unknown) (unknown) Bones and chest wall : No suspicious bony lesions. Overlying soft tissues (units unknown) (unknown) (unknown) (no date) (unknown) (unknown) COMPARISON: [facility], CR, XR CHEST 1V, 01/21/2021, 18:18. (units unknown) (unknown) (unknown) (no date) (unknown) (unknown) : 1935 Acct:[id number] (units unknown) (unknown) (unknown) (no date) (unknown) (unknown) Dictated by: Bobo Terrazas M.D. on 08/22/2022 at 19:29 (units unknown) (unknown) (unknown) (no date) (unknown) (unknown) FINDINGS: (units unknown) (unknown) (unknown) (no date) (unknown) (unknown) IMPRESSION: Very low lung volumes, limiting evaluation. No dense consolidation (units unknown) (unknown) (unknown) (no date) (unknown) (unknown) INDICATIONS: chest pain (units unknown) (unknown) (unknown) (no date) (unknown) (unknown) [facility] (units unknown) (unknown) (unknown) (no date) (unknown) (unknown) Loc: ED (units unknown) (unknown) (unknown) (no date) (unknown) (unknown) Lungs and pleura: Ve ry low lung volumes limit evaluation. There is no dense (units unknown) (unknown) (unknown) (no date) (unknown) (unknown) Mediastinum: Mediastinal contours appear normal. Heart size is normal. (units unknown) (unknown) (unknown) (no date) (unknown) (unknown) Ordering Provider: Gabriella Funez D.O. (units unknown) (unknown) (unknown) (no date) (unknown) (unknown) PROCEDURE: XR CHEST 1V (units unknown) (unknown) (unknown) (no date) (unknown) (unknown) Patient: Genesis Mullins MR# (units unknown) (unknown) (unknown) (no date) (unknown) (unknown) Procedure: XR chest 1V (units unknown) (unknown) (unknown) (no date) (unknown) (unknown) Signed (units unknown) (unknown) (unknown) (no date) (unknown) (unknown) Surgical changes and devices: None. (units unknown) (unknown) (unknown) (no date) (unknown) (unknown) TECHNIQUE: One view of the chest was acquired. (units unknown) (unknown) (unknown) (no date) (unknown) (unknown) XRay Report (units unknown) (unknown) (unknown) (no date) (unknown) (unknown) appear (units unknown) (unknown) (unknown) (no date) (unknown) (unknown) consolidation or pleural effusion. (units unknown) (unknown) (unknown) (no date) (unknown) (unknown) or (units unknown) (unknown) (unknown) (no date) (unknown) (unknown) pleural effusion identified. (units unknown) (unknown) (unknown) (no date) (unknown) (unknown) unremarkable. (units unknown) (unknown) Result panel 92 (unknown) (no date) (unknown) (unknown) (no value) (units unknown) (unknown) (unknown) (no date) (unknown) (unknown) 08/22/22 (units unknown) (unknown) (unknown) (no date) (unknown) (unknown) 1. No acute intracranial abnormality. (units unknown) (unknown) (unknown) (no date) (unknown) (unknown) [address] [place] [address] (units unknown) (unknown) (unknown) (no date) (unknown) (unknown) 2. Mild chronic whit e matter small vessel ischemic changes and cerebral volume (units unknown) (unknown) (unknown) (no date) (unknown) (unknown) 3. No high-grade stenosis or occlusion of the central intracranial arteries. (units unknown) (unknown) (unknown) (no date) (unknown) (unknown) 4. No high-grade stenosis or occlusion of the head and neck arteries. (units unknown) (unknown) (unknown) (no date) (unknown) (unknown) : [id number] (units unknown) (unknown) (unknown) (no date) (unknown) (unknown) Accession Number: [id number] (units unknown) (unknown) (unknown) (no date) (unknown) (unknown) Age/Sex: 87 / F Date of Service: (units unknown) (unknown) (unknown) (no date) (unknown) (unknown) [place] [address] (units unknown) (unknown) (unknown) (no date) (unknown) (unknown) Anterior circulation : Intracranial internal carotid arteries are normal in size (units unknown) (unknown) (unknown) (no date) (unknown) (unknown) Any quantitative measurements of stenosis were performed using NASCET criteria. (units unknown) (unknown) (unknown) (no date) (unknown) (unknown) Approved by: Pablo Harley M.D. on 08/22/2022 at 21:09 (units unknown) (unknown) (unknown) (no date) (unknown) (unknown) BRAIN: (units unknown) (unknown) (unknown) (no date) (unknown) (unknown) Bones: No suspicious bony lesions. Visualized cervical spine demonstrates (units unknown) (unknown) (unknown) (no date) (unknown) (unknown) Brain: No intracrani al hemorrhage, mass, or mass effect. There are (units unknown) (unknown) (unknown) (no date) (unknown) (unknown) COMPARISON: [facility], CT, CT ANGIO HEAD AND NECK, 01/21/2021, 17:19. (units unknown) (unknown) (unknown) (no date) (unknown) (unknown) CSF spaces: Basal cisterns are patent. No extra-axial fluid collections. (units unknown) (unknown) (unknown) (no date) (unknown) (unknown) CT Scan Report (units unknown) (unknown) (unknown) (no date) (unknown) (unknown) Carotid system: The great vessels demonstrate a conventional anatomy as they (units unknown) (unknown) (unknown) (no date) (unknown) (unknown) : 1935 Acct:[id number] (units unknown) (unknown) (unknown) (no date) (unknown) (unknown) Dictated by: Pablo Harley M.D. on 08/22/2022 at 21:01 (units unknown) (unknown) (unknown) (no date) (unknown) (unknown) FINDINGS: (units unknown) (unknown) (unknown) (no date) (unknown) (unknown) HEAD CT ANGIOGRAPHY: (units unknown) (unknown) (unknown) (no date) (unknown) (unknown) IMPRESSION: (units unknown) (unknown) (unknown) (no date) (unknown) (unknown) INDICATIONS: dizzy vomiting (units unknown) (unknown) (unknown) (no date) (unknown) (unknown) Image quality: There is metallic streak artifact from patient's dental (units unknown) (unknown) (unknown) (no date) (unknown) (unknown) [facility] (units unknown) (unknown) (unknown) (no date) (unknown) (unknown) Loc: ED (units unknown) (unknown) (unknown) (no date) (unknown) (unknown) Mastoid air cells ar e clear. (units unknown) (unknown) (unknown) (no date) (unknown) (unknown) NECK CT ANGIOGRAPHY: (units unknown) (unknown) (unknown) (no date) (unknown) (unknown) Orbits appear normal. (units unknown) (unknown) (unknown) (no date) (unknown) (unknown) Ordering Provider: Botnick,Gabriella D.O. (units unknown) (unknown) (unknown) (no date) (unknown) (unknown) PROCEDURE: CT ANGIO HEAD AND NECK (units unknown) (unknown) (unknown) (no date) (unknown) (unknown) Patient: Genesis Mullins MR# (units unknown) (unknown) (unknown) (no date) (unknown) (unknown) Posterior circulatio n: The origins of the vertebral arteries both appear (units unknown) (unknown) (unknown) (no date) (unknown) (unknown) Posterior circulatio n: Visualized portions of the vertebral arteries (units unknown) (unknown) (unknown) (no date) (unknown) (unknown) Pre-contrast 4.5 mm thick sections acquired from the foramen magnum to the (units unknown) (unknown) (unknown) (no date) (unknown) (unknown) Procedure: CT angio head and neck (units unknown) (unknown) (unknown) (no date) (unknown) (unknown) Signed (units unknown) (unknown) (unknown) (no date) (unknown) (unknown) Sinuses: There is mi ld mucosal thickening within the ethmoid and maxillary (units unknown) (unknown) (unknown) (no date) (unknown) (unknown) Skull and face: Calvarium and facial bones appear intact, without suspicious (units unknown) (unknown) (unknown) (no date) (unknown) (unknown) Soft tissues: Visualized neck soft tissues demonstrate asymmetric enlargement (units unknown) (unknown) (unknown) (no date) (unknown) (unknown) TECHNIQUE: (units unknown) (unknown) (unknown) (no date) (unknown) (unknown) There is mild (units unknown) (unknown) (unknown) (no date) (unknown) (unknown) abnormal (units unknown) (unknown) (unknown) (no date) (unknown) (unknown) acquired (units unknown) (unknown) (unknown) (no date) (unknown) (unknown) and neck separately. For radiation dose reduction, the following was used: (units unknown) (unknown) (unknown) (no date) (unknown) (unknown) and (units unknown) (unknown) (unknown) (no date) (unknown) (unknown) and/or volume rendering reformats were acquired of the central intracranial (units unknown) (unknown) (unknown) (no date) (unknown) (unknown) appear patent bilaterally. There is mild atherosclerotic calcification along (units unknown) (unknown) (unknown) (no date) (unknown) (unknown) appears patent bilaterally. No high-grade stenosis, occlusion, or filling (units unknown) (unknown) (unknown) (no date) (unknown) (unknown) appears (units unknown) (unknown) (unknown) (no date) (unknown) (unknown) arch through the [place]. Post-contrast 4.5 mm thick sections then re (units unknown) (unknown) (unknown) (no date) (unknown) (unknown) arise from (units unknown) (unknown) (unknown) (no date) (unknown) (unknown) arteries appear gleason nt bilaterally. The anterior communicating artery also (units unknown) (unknown) (unknown) (no date) (unknown) (unknown) arteries (units unknown) (unknown) (unknown) (no date) (unknown) (unknown) arthropathy. (units unknown) (unknown) (unknown) (no date) (unknown) (unknown) automated (units unknown) (unknown) (unknown) (no date) (unknown) (unknown) both widely patent. The internal carotid arteries demonstrate normal calibers (units unknown) (unknown) (unknown) (no date) (unknown) (unknown) caliber, and join to form a patent basilar artery. The posterior cerebral (units unknown) (unknown) (unknown) (no date) (unknown) (unknown) carotid arteries demonstrate normal caliber and courses. The bifurcation (units unknown) (unknown) (unknown) (no date) (unknown) (unknown) cavernous segments o f the internal carotid arteries. 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 (units unknown) (unknown) (unknown) (no date) (unknown) (unknown) cerebral volume loss , with resultant ventricular and sulcal prominence. (units unknown) (unknown) (unknown) (no date) (unknown) (unknown) cerebral (units unknown) (unknown) (unknown) (no date) (unknown) (unknown) common (units unknown) (unknown) (unknown) (no date) (unknown) (unknown) courses and calibers . They join to form a patent basilar artery. (units unknown) (unknown) (unknown) (no date) (unknown) (unknown) courses. (units unknown) (unknown) (unknown) (no date) (unknown) (unknown) defects. No (units unknown) (unknown) (unknown) (no date) (unknown) (unknown) demonstrate normal (units unknown) (unknown) (unknown) (no date) (unknown) (unknown) exposure control, adjustment of mA and/or kV according to patient size. (units unknown) (unknown) (unknown) (no date) (unknown) (unknown) facet joint (units unknown) (unknown) (unknown) (no date) (unknown) (unknown) from the foramen magnum to the vertex. 3-dimensional (units unknown) (unknown) (unknown) (no date) (unknown) (unknown) hardware. (units unknown) (unknown) (unknown) (no date) (unknown) (unknown) intracranial enhancement. (units unknown) (unknown) (unknown) (no date) (unknown) (unknown) lesions. (units unknown) (unknown) (unknown) (no date) (unknown) (unknown) loss. (units unknown) (unknown) (unknown) (no date) (unknown) (unknown) [id number]-pl oj ection (MIP) (units unknown) (unknown) (unknown) (no date) (unknown) (unknown) more superior extracranial portions of both vertebral arteries also demonstrate (units unknown) (unknown) (unknown) (no date) (unknown) (unknown) normal (units unknown) (unknown) (unknown) (no date) (unknown) (unknown) occlusion, or fillin g defects. No cerebral aneurysms identified. (units unknown) (unknown) (unknown) (no date) (unknown) (unknown) of the cervical lordosis. There is multilevel degenerative disc disease and (units unknown) (unknown) (unknown) (no date) (unknown) (unknown) of the (units unknown) (unknown) (unknown) (no date) (unknown) (unknown) patent. The middle cerebral arteries appear patent bilaterally. No high-grade (units unknown) (unknown) (unknown) (no date) (unknown) (unknown) patent. The (units unknown) (unknown) (unknown) (no date) (unknown) (unknown) periventricular and deep white matter hypodensities consistent with mild chronic (units unknown) (unknown) (unknown) (no date) (unknown) (unknown) regions are (units unknown) (unknown) (unknown) (no date) (unknown) (unknown) right thyroid lobe with multiple ill-defined hypoattenuating nodules. (units unknown) (unknown) (unknown) (no date) (unknown) (unknown) sinuses. (units unknown) (unknown) (unknown) (no date) (unknown) (unknown) small (units unknown) (unknown) (unknown) (no date) (unknown) (unknown) stenosis, (units unknown) (unknown) (unknown) (no date) (unknown) (unknown) straightening (units unknown) (unknown) (unknown) (no date) (unknown) (unknown) subcortical, (units unknown) (unknown) (unknown) (no date) (unknown) (unknown) the administration o f intravenous contrast, 1 mm thick sections acquired from (units unknown) (unknown) (unknown) (no date) (unknown) (unknown) the aortic arch. The origins of the common carotid arteries appear patent. The (units unknown) (unknown) (unknown) (no date) (unknown) (unknown) the aortic (units unknown) (unknown) (unknown) (no date) (unknown) (unknown) the (units unknown) (unknown) (unknown) (no date) (unknown) (unknown) vasculature (units unknown) (unknown) (unknown) (no date) (unknown) (unknown) vertex. After (units unknown) (unknown) (unknown) (no date) (unknown) (unknown) vessel ischemic changes. The acosta-white matter junction appears preserved. No (units unknown) (unknown) Result panel 93 (unknown) (no date) (unknown) (unknown) 1.4 % (unknown) (unknown) (no date) (unknown) (unknown) 100 /ul (unknown) (unknown) (no date) (unknown) (unknown) 11.9 g/dl (unknown) (unknown) (no date) (unknown) (unknown) 14.1 % (unknown) (unknown) (no date) (unknown) (unknown) 257 x10 3/ul (unknown) (unknown) (no date) (unknown) (unknown) 3.5 % (unknown) (unknown) (no date) (unknown) (unknown) 3.90 x10 6/ul (unknown) (unknown) (no date) (unknown) (unknown) 30.5 pg (unknown) (unknown) (no date) (unknown) (unknown) 300 /ul (unknown) (unknown) (no date) (unknown) (unknown) 3100 /ul (unknown) (unknown) (no date) (unknown) (unknown) 32.3 % (unknown) (unknown) (no date) (unknown) (unknown) 33.9 % (unknown) (unknown) (no date) (unknown) (unknown) 35.0 % (unknown) (unknown) (no date) (unknown) (unknown) 5300 /ul (unknown) (unknown) (no date) (unknown) (unknown) 55.9 % (unknown) (unknown) (no date) (unknown) (unknown) 6.9 % (unknown) (unknown) (no date) (unknown) (unknown) 700 /ul (unknown) (unknown) (no date) (unknown) (unknown) 89.8 fl (unknown) (unknown) (no date) (unknown) (unknown) 9.5 x10 3/ul (unknown) Result panel 94 (unknown) (no date) (unknown) (unknown) 1.0 (units unknown) (unknown) (unknown) (no date) (unknown) (unknown) 11.8 seconds (unknown) Result panel 95 (unknown) (no date) (unknown) (unknown) > 60 ml/min (unknown) (unknown) (no date) (unknown) (unknown) > 60 ml/min (unknown) (unknown) (no date) (unknown) (unknown) 0.7 mg/dl (unknown) (unknown) (no date) (unknown) (unknown) 0.89 mg/dl (unknown) (unknown) (no date) (unknown) (unknown) 1.4 (units unknown) (unknown) (unknown) (no date) (unknown) (unknown) 1.6 mg/dl (unknown) (unknown) (no date) (unknown) (unknown) 101 mmol/l (unknown) (unknown) (no date) (unknown) (unknown) 136 mmol/l (unknown) (unknown) (no date) (unknown) (unknown) 153 u/l (unknown) (unknown) (no date) (unknown) (unknown) 159 mg/dl (unknown) (unknown) (no date) (unknown) (unknown) 159 mg/dl (unknown) (unknown) (no date) (unknown) (unknown) 17 iu/l (unknown) (unknown) (no date) (unknown) (unknown) 21 mg/dl (unknown) (unknown) (no date) (unknown) (unknown) 23 iu/l (unknown) (unknown) (no date) (unknown) (unknown) 23.6 (units unknown) (unknown) (unknown) (no date) (unknown) (unknown) 24 mmol/l (unknown) (unknown) (no date) (unknown) (unknown) 3.1 g/dl (unknown) (unknown) (no date) (unknown) (unknown) 4.0 mmol/l (unknown) (unknown) (no date) (unknown) (unknown) 4.2 g/dl (unknown) (unknown) (no date) (unknown) (unknown) 54 u/l (unknown) (unknown) (no date) (unknown) (unknown) 58 u/l (unknown) (unknown) (no date) (unknown) (unknown) 7.3 g/dl (unknown) (unknown) (no date) (unknown) (unknown) 8.8 mg/dl (unknown) Result panel 96 (unknown) (no date) (unknown) (unknown) 1.0 (units unknown) (unknown) (unknown) (no date) (unknown) (unknown) 11.8 seconds (unknown) (unknown) (no date) (unknown) (unknown) 26 seconds (unknown) (unknown) (no date) (unknown) (unknown) 26 seconds (unknown) Result panel 97 (unknown) (no date) (unknown) (unknown) Negative (units unknown) (unknown) (unknown) (no date) (unknown) (unknown) Negative (units unknown) (unknown) Result panel 98 (unknown) (no date) (unknown) (unknown) > 60 ml/min (unknown) (unknown) (no date) (unknown) (unknown) > 60 ml/min (unknown) (unknown) (no date) (unknown) (unknown) < 0.012 ng/ml (unknown) (unknown) (no date) (unknown) (unknown) < 0.012 ng/ml (unknown) (unknown) (no date) (unknown) (unknown) 0.7 mg/dl (unknown) (unknown) (no date) (unknown) (unknown) 0.89 mg/dl (unknown) (unknown) (no date) (unknown) (unknown) 1.4 (units unknown) (unknown) (unknown) (no date) (unknown) (unknown) 1.6 mg/dl (unknown) (unknown) (no date) (unknown) (unknown) 101 mmol/l (unknown) (unknown) (no date) (unknown) (unknown) 136 mmol/l (unknown) (unknown) (no date) (unknown) (unknown) 153 u/l (unknown) (unknown) (no date) (unknown) (unknown) 159 mg/dl (unknown) (unknown) (no date) (unknown) (unknown) 159 mg/dl (unknown) (unknown) (no date) (unknown) (unknown) 17 iu/l (unknown) (unknown) (no date) (unknown) (unknown) 21 mg/dl (unknown) (unknown) (no date) (unknown) (unknown) 23 iu/l (unknown) (unknown) (no date) (unknown) (unknown) 23.6 (units unknown) (unknown) (unknown) (no date) (unknown) (unknown) 24 mmol/l (unknown) (unknown) (no date) (unknown) (unknown) 3.1 g/dl (unknown) (unknown) (no date) (unknown) (unknown) 4.0 mmol/l (unknown) (unknown) (no date) (unknown) (unknown) 4.2 g/dl (unknown) (unknown) (no date) (unknown) (unknown) 54 u/l (unknown) (unknown) (no date) (unknown) (unknown) 58 u/l (unknown) (unknown) (no date) (unknown) (unknown) 7.3 g/dl (unknown) (unknown) (no date) (unknown) (unknown) 8.8 mg/dl (unknown) Result panel 99 (unknown) (no date) (unknown) (unknown) > 60 ml/min (unknown) (unknown) (no date) (unknown) (unknown) > 60 ml/min (unknown) (unknown) (no date) (unknown) (unknown) < 0.012 ng/ml (unknown) (unknown) (no date) (unknown) (unknown) < 0.012 ng/ml (unknown) (unknown) (no date) (unknown) (unknown) 0.7 mg/dl (unknown) (unknown) (no date) (unknown) (unknown) 0.89 mg/dl (unknown) (unknown) (no date) (unknown) (unknown) 1.1 % (unknown) (unknown) (no date) (unknown) (unknown) 1.4 (units unknown) (unknown) (unknown) (no date) (unknown) (unknown) 1.6 mg/dl (unknown) (unknown) (no date) (unknown) (unknown) 1.72 ng/ml (unknown) (unknown) (no date) (unknown) (unknown) 101 mmol/l (unknown) (unknown) (no date) (unknown) (unknown) 136 mmol/l (unknown) (unknown) (no date) (unknown) (unknown) 153 u/l (unknown) (unknown) (no date) (unknown) (unknown) 159 mg/dl (unknown) (unknown) (no date) (unknown) (unknown) 159 mg/dl (unknown) (unknown) (no date) (unknown) (unknown) 17 iu/l (unknown) (unknown) (no date) (unknown) (unknown) 21 mg/dl (unknown) (unknown) (no date) (unknown) (unknown) 23 iu/l (unknown) (unknown) (no date) (unknown) (unknown) 23.6 (units unknown) (unknown) (unknown) (no date) (unknown) (unknown) 24 mmol/l (unknown) (unknown) (no date) (unknown) (unknown) 3.1 g/dl (unknown) (unknown) (no date) (unknown) (unknown) 4.0 mmol/l (unknown) (unknown) (no date) (unknown) (unknown) 4.2 g/dl (unknown) (unknown) (no date) (unknown) (unknown) 54 u/l (unknown) (unknown) (no date) (unknown) (unknown) 58 u/l (unknown) (unknown) (no date) (unknown) (unknown) 7.3 g/dl (unknown) (unknown) (no date) (unknown) (unknown) 8.8 mg/dl (unknown) Result panel 100 (unknown) (no date) (unknown) (unknown) (no value) (units unknown) (unknown) (unknown) (no date) (unknown) (unknown) (120 mg-180 mg) capsule (Fish Oil) (units unknown) (unknown) (unknown) (no date) (unknown) (unknown) 05/10/18 (units unknown) (unknown) (unknown) (no date) (unknown) (unknown) 08/22/22 08/22/22 08/22/22 Range/Units (units unknown) (unknown) (unknown) (no date) (unknown) (unknown) 08/22/22 18:24 (units unknown) (unknown) (unknown) (no date) (unknown) (unknown) 08/22/22 18:30 (units unknown) (unknown) (unknown) (no date) (unknown) (unknown) 08/22/22 18:36 (units unknown) (unknown) (unknown) (no date) (unknown) (unknown) 08/22/22 18:45 (units unknown) (unknown) (unknown) (no date) (unknown) (unknown) 08/22/22 Range/Units (units unknown) (unknown) (unknown) (no date) (unknown) (unknown) 08/22/22 (units unknown) (unknown) (unknown) (no date) (unknown) (unknown) 1 tab PO Q4HP PRNQty : 60 0RF (units unknown) (unknown) (unknown) (no date) (unknown) (unknown) 1,200 mg PO QDAY Qty : 0 (units unknown) (unknown) (unknown) (no date) (unknown) (unknown) 10 mg PO BID Qty: 0 (units unknown) (unknown) (unknown) (no date) (unknown) (unknown) 12.5 mg PO SEE INSTRUCTIONS Qty: 0 (units unknown) (unknown) (unknown) (no date) (unknown) (unknown) 18:24 18:24 18:24 (units unknown) (unknown) (unknown) (no date) (unknown) (unknown) 18:28 (units unknown) (unknown) (unknown) (no date) (unknown) (unknown) 18:45 (units unknown) (unknown) (unknown) (no date) (unknown) (unknown) 2 tab PO QDAYP PRNQt y: 0 (units unknown) (unknown) (unknown) (no date) (unknown) (unknown) 20 mg PO HS Qty: 0 (units unknown) (unknown) (unknown) (no date) (unknown) (unknown) 20 mg PO QDAY Qty: 0 (units unknown) (unknown) (unknown) (no date) (unknown) (unknown) 200 mg PO DAILY Qty: 30 2RF (units unknown) (unknown) (unknown) (no date) (unknown) (unknown) 500 mg PO BID Qty: 0 (units unknown) (unknown) (unknown) (no date) (unknown) (unknown) ALT (<35) IU/L (units unknown) (unknown) (unknown) (no date) (unknown) (unknown) ALT 17 (<35) IU/L (units unknown) (unknown) (unknown) (no date) (unknown) (unknown) APTT (26-36) SECONDS (units unknown) (unknown) (unknown) (no date) (unknown) (unknown) APTT 26 (26-36) SECONDS (units unknown) (unknown) (unknown) (no date) (unknown) (unknown) AST (14-36) IU/L (units unknown) (unknown) (unknown) (no date) (unknown) (unknown) AST 23 (14-36) IU/L (units unknown) (unknown) (unknown) (no date) (unknown) (unknown) Age/Sex: 87 / F (units unknown) (unknown) (unknown) (no date) (unknown) (unknown) Albumin (3.5-5.0) g/dL (units unknown) (unknown) (unknown) (no date) (unknown) (unknown) Albumin 4.2 (3.5-5.0 ) g/dL (units unknown) (unknown) (unknown) (no date) (unknown) (unknown) Albumin/Globulin Rat io (1.0-2.8) (units unknown) (unknown) (unknown) (no date) (unknown) (unknown) Albumin/Globulin Rat io 1.4 (1.0-2.8) (units unknown) (unknown) (unknown) (no date) (unknown) (unknown) Alkaline Phosphatase (38-126) U/L (units unknown) (unknown) (unknown) (no date) (unknown) (unknown) Alkaline Phosphatase 58 (38-126) U/L (units unknown) (unknown) (unknown) (no date) (unknown) (unknown) Allergies (units unknown) (unknown) (unknown) (no date) (unknown) (unknown) Allergy/AdvReac Type Severity Reaction Status Date / Time (units unknown) (unknown) (unknown) (no date) (unknown) (unknown) Aspirin (Aspirin 81 Mg Chew Tab) 324 mg PO NOW ONE (units unknown) (unknown) (unknown) (no date) (unknown) (unknown) BUN (7-17) mg/dL (units unknown) (unknown) (unknown) (no date) (unknown) (unknown) BUN 21 H (7-17) mg/dL (units unknown) (unknown) (unknown) (no date) (unknown) (unknown) BUN/Creatinine Ratio (6-22) (units unknown) (unknown) (unknown) (no date) (unknown) (unknown) BUN/Creatinine Ratio 23.6 H (6-22) (units unknown) (unknown) (unknown) (no date) (unknown) (unknown) Baso # (Auto) (0-100 ) /uL (units unknown) (unknown) (unknown) (no date) (unknown) (unknown) Baso # (Auto) 100 (0-100) /uL (units unknown) (unknown) (unknown) (no date) (unknown) (unknown) Baso % (Auto) (0-2) % (units unknown) (unknown) (unknown) (no date) (unknown) (unknown) Baso % (Auto) 1.4 (0-2) % (units unknown) (unknown) (unknown) (no date) (unknown) (unknown) Blood Pressure 122/8 2 08/22/22 18:28 (units unknown) (unknown) (unknown) (no date) (unknown) (unknown) Blood Pressure 122/82 (units unknown) (unknown) (unknown) (no date) (unknown) (unknown) COVID19 -Nasal RAPID Stat (units unknown) (unknown) (unknown) (no date) (unknown) (unknown) CT angio head and ne ck Stat (units unknown) (unknown) (unknown) (no date) (unknown) (unknown) Calcium (8.4-10.2) mg/dL (units unknown) (unknown) (unknown) (no date) (unknown) (unknown) Calcium 8.8 (8.4-10. 2) mg/dL (units unknown) (unknown) (unknown) (no date) (unknown) (unknown) Carbon Dioxide (22-3 2) mmol/L (units unknown) (unknown) (unknown) (no date) (unknown) (unknown) Carbon Dioxide 24 (22-32) mmol/L (units unknown) (unknown) (unknown) (no date) (unknown) (unknown) Chief Complaint: Dizziness (units unknown) (unknown) (unknown) (no date) (unknown) (unknown) Chloride (98-107) mmol/L (units unknown) (unknown) (unknown) (no date) (unknown) (unknown) Chloride 101 (98-107 ) mmol/L (units unknown) (unknown) (unknown) (no date) (unknown) (unknown) Chronic kidney disease, stage 3 (units unknown) (unknown) (unknown) (no date) (unknown) (unknown) Complete Blood Count AUTO DIFF Stat (units unknown) (unknown) (unknown) (no date) (unknown) (unknown) Comprehensive Metabolic Panel Stat (units unknown) (unknown) (unknown) (no date) (unknown) (unknown) Course (units unknown) (unknown) (unknown) (no date) (unknown) (unknown) Creatinine (0.52-1.0 4) mg/dL (units unknown) (unknown) (unknown) (no date) (unknown) (unknown) Creatinine 0.89 (0.52-1.04) mg/dL (units unknown) (unknown) (unknown) (no date) (unknown) (unknown) : 1935 Acct:[id number] (units unknown) (unknown) (unknown) (no date) (unknown) (unknown) Date of Service: 08/22/22 (units unknown) (unknown) (unknown) (no date) (unknown) (unknown) Departure (units unknown) (unknown) (unknown) (no date) (unknown) (unknown) Diabetes type 2, controlled (units unknown) (unknown) (unknown) (no date) (unknown) (unknown) Discharge Plan (units unknown) (unknown) (unknown) (no date) (unknown) (unknown) Discontinued Medications (units unknown) (unknown) (unknown) (no date) (unknown) (unknown) Documented By: KM (units unknown) (unknown) (unknown) (no date) (unknown) (unknown) Documented By: RL (units unknown) (unknown) (unknown) (no date) (unknown) (unknown) ED Orders (units unknown) (unknown) (unknown) (no date) (unknown) (unknown) EKG-12 Lead Stat (units unknown) (unknown) (unknown) (no date) (unknown) (unknown) ER Physician: Gabriella Funez D.O. (units unknown) (unknown) (unknown) (no date) (unknown) (unknown) Emergency Report (units unknown) (unknown) (unknown) (no date) (unknown) (unknown) Eos # (Auto) (0-450) /uL (units unknown) (unknown) (unknown) (no date) (unknown) (unknown) Eos # (Auto) 300 (0-450) /uL (units unknown) (unknown) (unknown) (no date) (unknown) (unknown) Eos % (Auto) (2-4) % (units unknown) (unknown) (unknown) (no date) (unknown) (unknown) Eos % (Auto) 3.5 (2- 4) % (units unknown) (unknown) (unknown) (no date) (unknown) (unknown) Estimated GFR > 60 (>60) mL/min (units unknown) (unknown) (unknown) (no date) (unknown) (unknown) Estimated GFR (>60) mL/min (units unknown) (unknown) (unknown) (no date) (unknown) (unknown) Exam (units unknown) (unknown) (unknown) (no date) (unknown) (unknown) GERD (gastroesophage al reflux disease) (units unknown) (unknown) (unknown) (no date) (unknown) (unknown) General (units unknown) (unknown) (unknown) (no date) (unknown) (unknown) Globulin (1.7-4.1) g/dL (units unknown) (unknown) (unknown) (no date) (unknown) (unknown) Globulin 3.1 (1.7-4. 1) g/dL (units unknown) (unknown) (unknown) (no date) (unknown) (unknown) Glucose (80-110) mg/dL (units unknown) (unknown) (unknown) (no date) (unknown) (unknown) Glucose 159 H (80-11 0) mg/dL (units unknown) (unknown) (unknown) (no date) (unknown) (unknown) HPI - Dizziness (units unknown) (unknown) (unknown) (no date) (unknown) (unknown) Hct (36-46) % (units unknown) (unknown) (unknown) (no date) (unknown) (unknown) Hct 35.0 L (36-46) % (units unknown) (unknown) (unknown) (no date) (unknown) (unknown) Hgb (12.0-16.0) g/dL (units unknown) (unknown) (unknown) (no date) (unknown) (unknown) Hgb 11.9 L (12.0-16. 0) g/dL (units unknown) (unknown) (unknown) (no date) (unknown) (unknown) Home Medications (units unknown) (unknown) (unknown) (no date) (unknown) (unknown) Hyperlipidemia (units unknown) (unknown) (unknown) (no date) (unknown) (unknown) Hypertension (units unknown) (unknown) (unknown) (no date) (unknown) (unknown) INR (0.9-1.3) (units unknown) (unknown) (unknown) (no date) (unknown) (unknown) INR 1.0 (0.9-1.3) (units unknown) (unknown) (unknown) (no date) (unknown) (unknown) Initial Vital Signs (units unknown) (unknown) (unknown) (no date) (unknown) (unknown) Initial Vital Signs: (units unknown) (unknown) (unknown) (no date) (unknown) (unknown) [address] [address] (units unknown) (unknown) (unknown) (no date) (unknown) (unknown) Godwin Cummings MD [Primary Care Provider] (units unknown) (unknown) (unknown) (no date) (unknown) (unknown) Lab Data (units unknown) (unknown) (unknown) (no date) (unknown) (unknown) Lab Results (units unknown) (unknown) (unknown) (no date) (unknown) (unknown) Labs: (units unknown) (unknown) (unknown) (no date) (unknown) (unknown) Last Admin: 08/22/22 18:43 Dose: 25 mg (units unknown) (unknown) (unknown) (no date) (unknown) (unknown) Last Admin: 08/22/22 18:43 Dose: Not Given (units unknown) (unknown) (unknown) (no date) (unknown) (unknown) Last Admin: 08/22/22 18:44 Dose: 1,000 mls/hr (units unknown) (unknown) (unknown) (no date) (unknown) (unknown) Lipase (23-300) U/L (units unknown) (unknown) (unknown) (no date) (unknown) (unknown) Lipase 54 (23-300) U/L (units unknown) (unknown) (unknown) (no date) (unknown) (unknown) Lipase Stat (units unknown) (unknown) (unknown) (no date) (unknown) (unknown) Lymph # (Auto) (8823-3694) /uL (units unknown) (unknown) (unknown) (no date) (unknown) (unknown) Lymph # (Auto) 3100 (3733-5743) /uL (units unknown) (unknown) (unknown) (no date) (unknown) (unknown) Lymph % (Auto) (25-4 0) % (units unknown) (unknown) (unknown) (no date) (unknown) (unknown) Lymph % (Auto) 32.3 (25-40) % (units unknown) (unknown) (unknown) (no date) (unknown) (unknown) [id number] (units unknown) (unknown) (unknown) (no date) (unknown) (unknown) MCH (26-34) PG (units unknown) (unknown) (unknown) (no date) (unknown) (unknown) MCH 30.5 (26-34) PG (units unknown) (unknown) (unknown) (no date) (unknown) (unknown) MCHC (30-36) % (units unknown) (unknown) (unknown) (no date) (unknown) (unknown) MCHC 33.9 (30-36) % (units unknown) (unknown) (unknown) (no date) (unknown) (unknown) MCV (80-100) fL (units unknown) (unknown) (unknown) (no date) (unknown) (unknown) MCV 89.8 (80-100) fL (units unknown) (unknown) (unknown) (no date) (unknown) (unknown) MDM - Dizziness (units unknown) (unknown) (unknown) (no date) (unknown) (unknown) Magnesium (1.6-2.3) mg/dL (units unknown) (unknown) (unknown) (no date) (unknown) (unknown) Magnesium 1.6 (1.6-2.3) mg/dL (units unknown) (unknown) (unknown) (no date) (unknown) (unknown) Magnesium Stat (units unknown) (unknown) (unknown) (no date) (unknown) (unknown) Meclizine HCl (Meclizine Hcl 12.5 Mg Tablet) 25 mg PO NOW ONE (units unknown) (unknown) (unknown) (no date) (unknown) (unknown) Medical History (units unknown) (unknown) (unknown) (no date) (unknown) (unknown) Medication Instructions Recorded Confirmed (units unknown) (unknown) (unknown) (no date) (unknown) (unknown) Medication Instructions Recorded (units unknown) (unknown) (unknown) (no date) (unknown) (unknown) Mode of arrival: EMS (units unknown) (unknown) (unknown) (no date) (unknown) (unknown) [place] # (Auto) (0-900 ) /uL (units unknown) (unknown) (unknown) (no date) (unknown) (unknown) [place] # (Auto) 700 (0-900) /uL (units unknown) (unknown) (unknown) (no date) (unknown) (unknown) [place] % (Auto) (3-14) % (units unknown) (unknown) (unknown) (no date) (unknown) (unknown) [place] % (Auto) 6.9 (3-14) % (units unknown) (unknown) (unknown) (no date) (unknown) (unknown) Neut # (Auto) (3401-9692) /uL (units unknown) (unknown) (unknown) (no date) (unknown) (unknown) Neut # (Auto) 5300 (8275-7988) /uL (units unknown) (unknown) (unknown) (no date) (unknown) (unknown) Neut % (Auto) (50-75 ) % (units unknown) (unknown) (unknown) (no date) (unknown) (unknown) Neut % (Auto) 55.9 (50-75) % (units unknown) (unknown) (unknown) (no date) (unknown) (unknown) No Action (units unknown) (unknown) (unknown) (no date) (unknown) (unknown) No Known Drug Allergies Allergy Verified 08/22/22 18:28 (units unknown) (unknown) (unknown) (no date) (unknown) (unknown) Ordered: (units unknown) (unknown) (unknown) (no date) (unknown) (unknown) Orders (units unknown) (unknown) (unknown) (no date) (unknown) (unknown) Oxygen Delivery Meth od Room Air 08/22/22 18:28 (units unknown) (unknown) (unknown) (no date) (unknown) (unknown) Oxygen Delivery Meth od Room Air (units unknown) (unknown) (unknown) (no date) (unknown) (unknown) PT (10.1-12.7) SECONDS (units unknown) (unknown) (unknown) (no date) (unknown) (unknown) PT 11.8 (10.1-12.7) SECONDS (units unknown) (unknown) (unknown) (no date) (unknown) (unknown) PTT Partial Thromboplastin [place] Stat (units unknown) (unknown) (unknown) (no date) (unknown) (unknown) Patient History (units unknown) (unknown) (unknown) (no date) (unknown) (unknown) Patient: Genesis Mullins MR#: (units unknown) (unknown) (unknown) (no date) (unknown) (unknown) Plt Count (150-400) X103/uL (units unknown) (unknown) (unknown) (no date) (unknown) (unknown) Plt Count 257 (150-400) X103/uL (units unknown) (unknown) (unknown) (no date) (unknown) (unknown) Potassium (3.4-5.1) mmol/L (units unknown) (unknown) (unknown) (no date) (unknown) (unknown) Potassium 4.0 (3.4-5.1) mmol/L (units unknown) (unknown) (unknown) (no date) (unknown) (unknown) Prescriptions: (units unknown) (unknown) (unknown) (no date) (unknown) (unknown) Previous Rx's (units unknown) (unknown) (unknown) (no date) (unknown) (unknown) Prothrombin Time INR Stat (units unknown) (unknown) (unknown) (no date) (unknown) (unknown) Pulse Oximetry 98 08/22/22 18:28 (units unknown) (unknown) (unknown) (no date) (unknown) (unknown) Pulse Oximetry 98 (units unknown) (unknown) (unknown) (no date) (unknown) (unknown) Pulse Rate 71 18:28 (units unknown) (unknown) (unknown) (no date) (unknown) (unknown) Pulse Rate 71 (units unknown) (unknown) (unknown) (no date) (unknown) (unknown) RBC (4.0-5.2) X106/uL (units unknown) (unknown) (unknown) (no date) (unknown) (unknown) RBC 3.90 L (4.0-5.2) X106/uL (units unknown) (unknown) (unknown) (no date) (unknown) (unknown) RDW (11.6-14.8) % (units unknown) (unknown) (unknown) (no date) (unknown) (unknown) RDW 14.1 (11.6-14.8) % (units unknown) (unknown) (unknown) (no date) (unknown) (unknown) Referrals: (units unknown) (unknown) (unknown) (no date) (unknown) (unknown) Related Data (units unknown) (unknown) (unknown) (no date) (unknown) (unknown) Respiratory Rate 20 08/22/22 18:28 (units unknown) (unknown) (unknown) (no date) (unknown) (unknown) Respiratory Rate 20 (units unknown) (unknown) (unknown) (no date) (unknown) (unknown) SARS-CoV-2 (PCR) (Negative) (units unknown) (unknown) (unknown) (no date) (unknown) (unknown) SARS-CoV-2 (PCR) Negative (Negative) (units unknown) (unknown) (unknown) (no date) (unknown) (unknown) Signed By: (units unknown) (unknown) (unknown) (no date) (unknown) (unknown) Smoking Status: [place] smoker (units unknown) (unknown) (unknown) (no date) (unknown) (unknown) Social History (units unknown) (unknown) (unknown) (no date) (unknown) (unknown) Sodium (137-145) mmol/L (units unknown) (unknown) (unknown) (no date) (unknown) (unknown) Sodium 136 L (137-14 5) mmol/L (units unknown) (unknown) (unknown) (no date) (unknown) (unknown) Sodium Chloride (Normal Saline 0.9%) 1,000 mls @ 1,000 mls/hr IV BOLUS ONE (units unknown) (unknown) (unknown) (no date) (unknown) (unknown) Source: patient and EMS (units unknown) (unknown) (unknown) (no date) (unknown) (unknown) Stated Complaint: dizzy, nausea, vomitting (units unknown) (unknown) (unknown) (no date) (unknown) (unknown) Stop: 08/22/22 18:31 (units unknown) (unknown) (unknown) (no date) (unknown) (unknown) Stop: 08/22/22 18:37 (units unknown) (unknown) (unknown) (no date) (unknown) (unknown) Stop: 08/22/22 19:35 (units unknown) (unknown) (unknown) (no date) (unknown) (unknown) Substance Use Type: does not use (units unknown) (unknown) (unknown) (no date) (unknown) (unknown) Temperature 97.5 F L 08/22/22 18:28 (units unknown) (unknown) (unknown) (no date) (unknown) (unknown) Temperature 97.5 F L (units unknown) (unknown) (unknown) (no date) (unknown) (unknown) Time Seen by Provide r: 08/22/22 18:36 (units unknown) (unknown) (unknown) (no date) (unknown) (unknown) Total Bilirubin (0.2-1.3) mg/dL (units unknown) (unknown) (unknown) (no date) (unknown) (unknown) Total Bilirubin 0.7 (0.2-1.3) mg/dL (units unknown) (unknown) (unknown) (no date) (unknown) (unknown) Total Creatine [place] e (30-135) U/L (units unknown) (unknown) (unknown) (no date) (unknown) (unknown) Total Creatine [place] e 153 H (30-135) U/L (units unknown) (unknown) (unknown) (no date) (unknown) (unknown) Total Protein (6.3-8.2) g/dL (units unknown) (unknown) (unknown) (no date) (unknown) (unknown) Total Protein 7.3 (6.3-8.2) g/dL (units unknown) (unknown) (unknown) (no date) (unknown) (unknown) Troponin + CK Cardia c Panel Stat (units unknown) (unknown) (unknown) (no date) (unknown) (unknown) Troponin I < 0.012 (0.01-0.034) ng/mL (units unknown) (unknown) (unknown) (no date) (unknown) (unknown) Troponin I (0.01-0.034) ng/mL (units unknown) (unknown) (unknown) (no date) (unknown) (unknown) Vital Signs - 8 hr (units unknown) (unknown) (unknown) (no date) (unknown) (unknown) Vital Signs (units unknown) (unknown) (unknown) (no date) (unknown) (unknown) Vital signs: (units unknown) (unknown) (unknown) (no date) (unknown) (unknown) WBC (4.5-11.0) X103/uL (units unknown) (unknown) (unknown) (no date) (unknown) (unknown) WBC 9.5 (4.5-11.0) X103/uL (units unknown) (unknown) (unknown) (no date) (unknown) (unknown) XR chest 1V Stat (units unknown) (unknown) (unknown) (no date) (unknown) (unknown) [Embedded Image Not Available] (units unknown) (unknown) (unknown) (no date) (unknown) (unknown) acetaminophen 650 MG tablet extended release (units unknown) (unknown) (unknown) (no date) (unknown) (unknown) acetaminophen 650 mg 2 tab PO QDAYP PRN ##0 12/02/16 05/10/18 (units unknown) (unknown) (unknown) (no date) (unknown) (unknown) alcohol intake frequency: holidays/special occasions only (units unknown) (unknown) (unknown) (no date) (unknown) (unknown) celecoxib 200 mg capsule (Celebrex) 200 mg PO DAILY #30 caps 01/05/18 (units unknown) (unknown) (unknown) (no date) (unknown) (unknown) celecoxib [Celebrex] 200 mg capsule (units unknown) (unknown) (unknown) (no date) (unknown) (unknown) hydrochlorothiazide 12.5 MG capsule (units unknown) (unknown) (unknown) (no date) (unknown) (unknown) hydrochlorothiazide 12.5 mg capsule 12.5 mg PO SEE INSTRUCTIONS ##0 12/02/16 (units unknown) (unknown) (unknown) (no date) (unknown) (unknown) hydrocodone 5 mg-acetaminophen 325 1 tab PO Q4HP PRN #60 tabs 12/13/16 (units unknown) (unknown) (unknown) (no date) (unknown) (unknown) hydrocodone-acetamin op hen [[place]] 5 MG/325 MG tablet (units unknown) (unknown) (unknown) (no date) (unknown) (unknown) lisinopril 10 MG tablet (units unknown) (unknown) (unknown) (no date) (unknown) (unknown) lisinopril 10 mg tablet 10 mg PO BID ##0 12/02/16 05/10/18 (units unknown) (unknown) (unknown) (no date) (unknown) (unknown) metformin 500 mg tablet,extended 500 mg PO BID ##0 12/02/16 05/10/18 (units unknown) (unknown) (unknown) (no date) (unknown) (unknown) metformin [Glucophag e XR] 500 MG tablet extended release 24 hr (units unknown) (unknown) (unknown) (no date) (unknown) (unknown) mg tablet ([place]) (units unknown) (unknown) (unknown) (no date) (unknown) (unknown) omega 2-sau-jcs-fish oil 1,000 mg 1,200 mg PO QDAY ##0 12/02/16 05/10/18 (units unknown) (unknown) (unknown) (no date) (unknown) (unknown) omega 0-kqg-icd-fish oil [Fish Oil] 1,000 MG capsule (units unknown) (unknown) (unknown) (no date) (unknown) (unknown) omeprazole 20 MG capsule,delayed release(DR/EC) (units unknown) (unknown) (unknown) (no date) (unknown) (unknown) omeprazole 20 mg capsule,delayed 20 mg PO QDAY ##0 12/02/16 05/10/18 (units unknown) (unknown) (unknown) (no date) (unknown) (unknown) release 24 hr (Glucophage XR) (units unknown) (unknown) (unknown) (no date) (unknown) (unknown) release (units unknown) (unknown) (unknown) (no date) (unknown) (unknown) simvastatin 20 MG tablet (units unknown) (unknown) (unknown) (no date) (unknown) (unknown) simvastatin 20 mg tablet 20 mg PO HS ##0 12/02/16 05/10/18 (units unknown) (unknown) (unknown) (no date) (unknown) (unknown) tablet,extended release (units unknown) (unknown) Result panel 101 (unknown) (no date) (unknown) (unknown) (no value) (units unknown) (unknown) (unknown) (no date) (unknown) (unknown) (120 mg-180 mg) capsule (Fish Oil) (units unknown) (unknown) (unknown) (no date) (unknown) (unknown) 05/10/18 (units unknown) (unknown) (unknown) (no date) (unknown) (unknown) 08/22/22 08/22/22 08/22/22 Range/Units (units unknown) (unknown) (unknown) (no date) (unknown) (unknown) 08/22/22 18:24 (units unknown) (unknown) (unknown) (no date) (unknown) (unknown) 08/22/22 18:30 (units unknown) (unknown) (unknown) (no date) (unknown) (unknown) 08/22/22 18:36 (units unknown) (unknown) (unknown) (no date) (unknown) (unknown) 08/22/22 18:45 (units unknown) (unknown) (unknown) (no date) (unknown) (unknown) 08/22/22 Range/Units (units unknown) (unknown) (unknown) (no date) (unknown) (unknown) 08/22/22 (units unknown) (unknown) (unknown) (no date) (unknown) (unknown) 1 tab PO Q4HP PRNQty : 60 0RF (units unknown) (unknown) (unknown) (no date) (unknown) (unknown) 1,200 mg PO QDAY Qty : 0 (units unknown) (unknown) (unknown) (no date) (unknown) (unknown) 10 mg PO BID Qty: 0 (units unknown) (unknown) (unknown) (no date) (unknown) (unknown) 12.5 mg PO SEE INSTRUCTIONS Qty: 0 (units unknown) (unknown) (unknown) (no date) (unknown) (unknown) 18:24 18:24 18:24 (units unknown) (unknown) (unknown) (no date) (unknown) (unknown) 18:28 (units unknown) (unknown) (unknown) (no date) (unknown) (unknown) 18:45 (units unknown) (unknown) (unknown) (no date) (unknown) (unknown) 2 tab PO QDAYP PRNQt y: 0 (units unknown) (unknown) (unknown) (no date) (unknown) (unknown) 20 mg PO HS Qty: 0 (units unknown) (unknown) (unknown) (no date) (unknown) (unknown) 20 mg PO QDAY Qty: 0 (units unknown) (unknown) (unknown) (no date) (unknown) (unknown) 200 mg PO DAILY Qty: 30 2RF (units unknown) (unknown) (unknown) (no date) (unknown) (unknown) 500 mg PO BID Qty: 0 (units unknown) (unknown) (unknown) (no date) (unknown) (unknown) ALT (<35) IU/L (units unknown) (unknown) (unknown) (no date) (unknown) (unknown) ALT 17 (<35) IU/L (units unknown) (unknown) (unknown) (no date) (unknown) (unknown) APTT (26-36) SECONDS (units unknown) (unknown) (unknown) (no date) (unknown) (unknown) APTT 26 (26-36) SECONDS (units unknown) (unknown) (unknown) (no date) (unknown) (unknown) AST (14-36) IU/L (units unknown) (unknown) (unknown) (no date) (unknown) (unknown) AST 23 (14-36) IU/L (units unknown) (unknown) (unknown) (no date) (unknown) (unknown) Age/Sex: 87 / F (units unknown) (unknown) (unknown) (no date) (unknown) (unknown) Albumin (3.5-5.0) g/dL (units unknown) (unknown) (unknown) (no date) (unknown) (unknown) Albumin 4.2 (3.5-5.0 ) g/dL (units unknown) (unknown) (unknown) (no date) (unknown) (unknown) Albumin/Globulin Rat io (1.0-2.8) (units unknown) (unknown) (unknown) (no date) (unknown) (unknown) Albumin/Globulin Rat io 1.4 (1.0-2.8) (units unknown) (unknown) (unknown) (no date) (unknown) (unknown) Alkaline Phosphatase (38-126) U/L (units unknown) (unknown) (unknown) (no date) (unknown) (unknown) Alkaline Phosphatase 58 (38-126) U/L (units unknown) (unknown) (unknown) (no date) (unknown) (unknown) Allergies (units unknown) (unknown) (unknown) (no date) (unknown) (unknown) Allergy/AdvReac Type Severity Reaction Status Date / Time (units unknown) (unknown) (unknown) (no date) (unknown) (unknown) Aspirin (Aspirin 81 Mg Chew Tab) 324 mg PO NOW ONE (units unknown) (unknown) (unknown) (no date) (unknown) (unknown) BUN (7-17) mg/dL (units unknown) (unknown) (unknown) (no date) (unknown) (unknown) BUN 21 H (7-17) mg/dL (units unknown) (unknown) (unknown) (no date) (unknown) (unknown) BUN/Creatinine Ratio (6-22) (units unknown) (unknown) (unknown) (no date) (unknown) (unknown) BUN/Creatinine Ratio 23.6 H (6-22) (units unknown) (unknown) (unknown) (no date) (unknown) (unknown) Baso # (Auto) (0-100 ) /uL (units unknown) (unknown) (unknown) (no date) (unknown) (unknown) Baso # (Auto) 100 (0-100) /uL (units unknown) (unknown) (unknown) (no date) (unknown) (unknown) Baso % (Auto) (0-2) % (units unknown) (unknown) (unknown) (no date) (unknown) (unknown) Baso % (Auto) 1.4 (0-2) % (units unknown) (unknown) (unknown) (no date) (unknown) (unknown) Blood Pressure 122/8 2 08/22/22 18:28 (units unknown) (unknown) (unknown) (no date) (unknown) (unknown) Blood Pressure 122/82 (units unknown) (unknown) (unknown) (no date) (unknown) (unknown) COVID19 -Nasal RAPID Stat (units unknown) (unknown) (unknown) (no date) (unknown) (unknown) CT angio head and ne ck Stat (units unknown) (unknown) (unknown) (no date) (unknown) (unknown) Calcium (8.4-10.2) mg/dL (units unknown) (unknown) (unknown) (no date) (unknown) (unknown) Calcium 8.8 (8.4-10. 2) mg/dL (units unknown) (unknown) (unknown) (no date) (unknown) (unknown) Carbon Dioxide (22-3 2) mmol/L (units unknown) (unknown) (unknown) (no date) (unknown) (unknown) Carbon Dioxide 24 (22-32) mmol/L (units unknown) (unknown) (unknown) (no date) (unknown) (unknown) Chief Complaint: Dizziness (units unknown) (unknown) (unknown) (no date) (unknown) (unknown) Chloride (98-107) mmol/L (units unknown) (unknown) (unknown) (no date) (unknown) (unknown) Chloride 101 (98-107 ) mmol/L (units unknown) (unknown) (unknown) (no date) (unknown) (unknown) Chronic kidney disease, stage 3 (units unknown) (unknown) (unknown) (no date) (unknown) (unknown) Complete Blood Count AUTO DIFF Stat (units unknown) (unknown) (unknown) (no date) (unknown) (unknown) Comprehensive Metabolic Panel Stat (units unknown) (unknown) (unknown) (no date) (unknown) (unknown) Course (units unknown) (unknown) (unknown) (no date) (unknown) (unknown) Creatinine (0.52-1.0 4) mg/dL (units unknown) (unknown) (unknown) (no date) (unknown) (unknown) Creatinine 0.89 (0.52-1.04) mg/dL (units unknown) (unknown) (unknown) (no date) (unknown) (unknown) : 1935 Acct:[id number] (units unknown) (unknown) (unknown) (no date) (unknown) (unknown) Date of Service: 08/22/22 (units unknown) (unknown) (unknown) (no date) (unknown) (unknown) Departure (units unknown) (unknown) (unknown) (no date) (unknown) (unknown) Diabetes type 2, controlled (units unknown) (unknown) (unknown) (no date) (unknown) (unknown) Discharge Plan (units unknown) (unknown) (unknown) (no date) (unknown) (unknown) Discontinued Medications (units unknown) (unknown) (unknown) (no date) (unknown) (unknown) Documented By: KM (units unknown) (unknown) (unknown) (no date) (unknown) (unknown) Documented By: RL (units unknown) (unknown) (unknown) (no date) (unknown) (unknown) ED Orders (units unknown) (unknown) (unknown) (no date) (unknown) (unknown) EKG-12 Lead Stat (units unknown) (unknown) (unknown) (no date) (unknown) (unknown) ER Physician: Gabriella Funez D.O. (units unknown) (unknown) (unknown) (no date) (unknown) (unknown) Emergency Report (units unknown) (unknown) (unknown) (no date) (unknown) (unknown) Eos # (Auto) (0-450) /uL (units unknown) (unknown) (unknown) (no date) (unknown) (unknown) Eos # (Auto) 300 (0-450) /uL (units unknown) (unknown) (unknown) (no date) (unknown) (unknown) Eos % (Auto) (2-4) % (units unknown) (unknown) (unknown) (no date) (unknown) (unknown) Eos % (Auto) 3.5 (2- 4) % (units unknown) (unknown) (unknown) (no date) (unknown) (unknown) Estimated GFR > 60 (>60) mL/min (units unknown) (unknown) (unknown) (no date) (unknown) (unknown) Estimated GFR (>60) mL/min (units unknown) (unknown) (unknown) (no date) (unknown) (unknown) Exam (units unknown) (unknown) (unknown) (no date) (unknown) (unknown) GERD (gastroesophage al reflux disease) (units unknown) (unknown) (unknown) (no date) (unknown) (unknown) General (units unknown) (unknown) (unknown) (no date) (unknown) (unknown) Globulin (1.7-4.1) g/dL (units unknown) (unknown) (unknown) (no date) (unknown) (unknown) Globulin 3.1 (1.7-4. 1) g/dL (units unknown) (unknown) (unknown) (no date) (unknown) (unknown) Glucose (80-110) mg/dL (units unknown) (unknown) (unknown) (no date) (unknown) (unknown) Glucose 159 H (80-11 0) mg/dL (units unknown) (unknown) (unknown) (no date) (unknown) (unknown) HPI - Dizziness (units unknown) (unknown) (unknown) (no date) (unknown) (unknown) HPI Narrative: (units unknown) (unknown) (unknown) (no date) (unknown) (unknown) Hct (36-46) % (units unknown) (unknown) (unknown) (no date) (unknown) (unknown) Hct 35.0 L (36-46) % (units unknown) (unknown) (unknown) (no date) (unknown) (unknown) Hgb (12.0-16.0) g/dL (units unknown) (unknown) (unknown) (no date) (unknown) (unknown) Hgb 11.9 L (12.0-16. 0) g/dL (units unknown) (unknown) (unknown) (no date) (unknown) (unknown) History of Present Illness (units unknown) (unknown) (unknown) (no date) (unknown) (unknown) Home Medications (units unknown) (unknown) (unknown) (no date) (unknown) (unknown) Hyperlipidemia (units unknown) (unknown) (unknown) (no date) (unknown) (unknown) Hypertension (units unknown) (unknown) (unknown) (no date) (unknown) (unknown) INR (0.9-1.3) (units unknown) (unknown) (unknown) (no date) (unknown) (unknown) INR 1.0 (0.9-1.3) (units unknown) (unknown) (unknown) (no date) (unknown) (unknown) Initial Vital Signs (units unknown) (unknown) (unknown) (no date) (unknown) (unknown) Initial Vital Signs: (units unknown) (unknown) (unknown) (no date) (unknown) (unknown) [address] [address] (units unknown) (unknown) (unknown) (no date) (unknown) (unknown) Godwin Cummings MD [Primary Care Provider] (units unknown) (unknown) (unknown) (no date) (unknown) (unknown) Lab Data (units unknown) (unknown) (unknown) (no date) (unknown) (unknown) Lab Results (units unknown) (unknown) (unknown) (no date) (unknown) (unknown) Labs: (units unknown) (unknown) (unknown) (no date) (unknown) (unknown) Last Admin: 08/22/22 18:43 Dose: 25 mg (units unknown) (unknown) (unknown) (no date) (unknown) (unknown) Last Admin: 08/22/22 18:43 Dose: Not Given (units unknown) (unknown) (unknown) (no date) (unknown) (unknown) Last Admin: 08/22/22 18:44 Dose: 1,000 mls/hr (units unknown) (unknown) (unknown) (no date) (unknown) (unknown) Lipase (23-300) U/L (units unknown) (unknown) (unknown) (no date) (unknown) (unknown) Lipase 54 (23-300) U/L (units unknown) (unknown) (unknown) (no date) (unknown) (unknown) Lipase Stat (units unknown) (unknown) (unknown) (no date) (unknown) (unknown) Lymph # (Auto) (1341-2786) /uL (units unknown) (unknown) (unknown) (no date) (unknown) (unknown) Lymph # (Auto) 3100 (4998-5339) /uL (units unknown) (unknown) (unknown) (no date) (unknown) (unknown) Lymph % (Auto) (25-4 0) % (units unknown) (unknown) (unknown) (no date) (unknown) (unknown) Lymph % (Auto) 32.3 (25-40) % (units unknown) (unknown) (unknown) (no date) (unknown) (unknown) [id number] (units unknown) (unknown) (unknown) (no date) (unknown) (unknown) MCH (26-34) PG (units unknown) (unknown) (unknown) (no date) (unknown) (unknown) MCH 30.5 (26-34) PG (units unknown) (unknown) (unknown) (no date) (unknown) (unknown) MCHC (30-36) % (units unknown) (unknown) (unknown) (no date) (unknown) (unknown) MCHC 33.9 (30-36) % (units unknown) (unknown) (unknown) (no date) (unknown) (unknown) MCV (80-100) fL (units unknown) (unknown) (unknown) (no date) (unknown) (unknown) MCV 89.8 (80-100) fL (units unknown) (unknown) (unknown) (no date) (unknown) (unknown) MDM - Dizziness (units unknown) (unknown) (unknown) (no date) (unknown) (unknown) Magnesium (1.6-2.3) mg/dL (units unknown) (unknown) (unknown) (no date) (unknown) (unknown) Magnesium 1.6 (1.6-2.3) mg/dL (units unknown) (unknown) (unknown) (no date) (unknown) (unknown) Magnesium Stat (units unknown) (unknown) (unknown) (no date) (unknown) (unknown) Meclizine HCl (Meclizine Hcl 12.5 Mg Tablet) 25 mg PO NOW ONE (units unknown) (unknown) (unknown) (no date) (unknown) (unknown) Medical History (units unknown) (unknown) (unknown) (no date) (unknown) (unknown) Medication Instructions Recorded Confirmed (units unknown) (unknown) (unknown) (no date) (unknown) (unknown) Medication Instructions Recorded (units unknown) (unknown) (unknown) (no date) (unknown) (unknown) Mode of arrival: EMS (units unknown) (unknown) (unknown) (no date) (unknown) (unknown) [place] # (Auto) (0-900 ) /uL (units unknown) (unknown) (unknown) (no date) (unknown) (unknown) [place] # (Auto) 700 (0-900) /uL (units unknown) (unknown) (unknown) (no date) (unknown) (unknown) [place] % (Auto) (3-14) % (units unknown) (unknown) (unknown) (no date) (unknown) (unknown) [place] % (Auto) 6.9 (3-14) % (units unknown) (unknown) (unknown) (no date) (unknown) (unknown) Neut # (Auto) (4630-4165) /uL (units unknown) (unknown) (unknown) (no date) (unknown) (unknown) Neut # (Auto) 5300 (0287-5877) /uL (units unknown) (unknown) (unknown) (no date) (unknown) (unknown) Neut % (Auto) (50-75 ) % (units unknown) (unknown) (unknown) (no date) (unknown) (unknown) Neut % (Auto) 55.9 (50-75) % (units unknown) (unknown) (unknown) (no date) (unknown) (unknown) No Action (units unknown) (unknown) (unknown) (no date) (unknown) (unknown) No Known Drug Allergies Allergy Verified 08/22/22 18:28 (units unknown) (unknown) (unknown) (no date) (unknown) (unknown) Ordered: (units unknown) (unknown) (unknown) (no date) (unknown) (unknown) Orders (units unknown) (unknown) (unknown) (no date) (unknown) (unknown) Oxygen Delivery Meth od Room Air 08/22/22 18:28 (units unknown) (unknown) (unknown) (no date) (unknown) (unknown) Oxygen Delivery Meth od Room Air (units unknown) (unknown) (unknown) (no date) (unknown) (unknown) PT (10.1-12.7) SECONDS (units unknown) (unknown) (unknown) (no date) (unknown) (unknown) PT 11.8 (10.1-12.7) SECONDS (units unknown) (unknown) (unknown) (no date) (unknown) (unknown) PTT Partial Thromboplastin [place] Stat (units unknown) (unknown) (unknown) (no date) (unknown) (unknown) Patient History (units unknown) (unknown) (unknown) (no date) (unknown) (unknown) Patient is 87-year-o ld female history of insulin-dependent diabetes hypertension (units unknown) (unknown) (unknown) (no date) (unknown) (unknown) Patient: Genesis Mullins MR#: (units unknown) (unknown) (unknown) (no date) (unknown) (unknown) Plt Count (150-400) X103/uL (units unknown) (unknown) (unknown) (no date) (unknown) (unknown) Plt Count 257 (150-400) X103/uL (units unknown) (unknown) (unknown) (no date) (unknown) (unknown) Potassium (3.4-5.1) mmol/L (units unknown) (unknown) (unknown) (no date) (unknown) (unknown) Potassium 4.0 (3.4-5.1) mmol/L (units unknown) (unknown) (unknown) (no date) (unknown) (unknown) Prescriptions: (units unknown) (unknown) (unknown) (no date) (unknown) (unknown) Previous Rx's (units unknown) (unknown) (unknown) (no date) (unknown) (unknown) Prothrombin Time INR Stat (units unknown) (unknown) (unknown) (no date) (unknown) (unknown) Pulse Oximetry 98 08/22/22 18:28 (units unknown) (unknown) (unknown) (no date) (unknown) (unknown) Pulse Oximetry 98 (units unknown) (unknown) (unknown) (no date) (unknown) (unknown) Pulse Rate 71 18:28 (units unknown) (unknown) (unknown) (no date) (unknown) (unknown) Pulse Rate 71 (units unknown) (unknown) (unknown) (no date) (unknown) (unknown) RBC (4.0-5.2) X106/uL (units unknown) (unknown) (unknown) (no date) (unknown) (unknown) RBC 3.90 L (4.0-5.2) X106/uL (units unknown) (unknown) (unknown) (no date) (unknown) (unknown) RDW (11.6-14.8) % (units unknown) (unknown) (unknown) (no date) (unknown) (unknown) RDW 14.1 (11.6-14.8) % (units unknown) (unknown) (unknown) (no date) (unknown) (unknown) ROS Unobtainable: Al l systems reviewed + are unremarkable except as noted in HPI (units unknown) (unknown) (unknown) (no date) (unknown) (unknown) Referrals: (units unknown) (unknown) (unknown) (no date) (unknown) (unknown) Related Data (units unknown) (unknown) (unknown) (no date) (unknown) (unknown) Respiratory Rate 20 08/22/22 18:28 (units unknown) (unknown) (unknown) (no date) (unknown) (unknown) Respiratory Rate 20 (units unknown) (unknown) (unknown) (no date) (unknown) (unknown) Review of Systems (units unknown) (unknown) (unknown) (no date) (unknown) (unknown) SARS-CoV-2 (PCR) (Negative) (units unknown) (unknown) (unknown) (no date) (unknown) (unknown) SARS-CoV-2 (PCR) Negative (Negative) (units unknown) (unknown) (unknown) (no date) (unknown) (unknown) Signed By: (units unknown) (unknown) (unknown) (no date) (unknown) (unknown) Smoking Status: [place] smoker (units unknown) (unknown) (unknown) (no date) (unknown) (unknown) Social History (units unknown) (unknown) (unknown) (no date) (unknown) (unknown) Sodium (137-145) mmol/L (units unknown) (unknown) (unknown) (no date) (unknown) (unknown) Sodium 136 L (137-14 5) mmol/L (units unknown) (unknown) (unknown) (no date) (unknown) (unknown) Sodium Chloride (Normal Saline 0.9%) 1,000 mls @ 1,000 mls/hr IV BOLUS ONE (units unknown) (unknown) (unknown) (no date) (unknown) (unknown) Source: patient and EMS (units unknown) (unknown) (unknown) (no date) (unknown) (unknown) Stated Complaint: dizzy, nausea, vomitting (units unknown) (unknown) (unknown) (no date) (unknown) (unknown) Stop: 08/22/22 18:31 (units unknown) (unknown) (unknown) (no date) (unknown) (unknown) Stop: 08/22/22 18:37 (units unknown) (unknown) (unknown) (no date) (unknown) (unknown) Stop: 08/22/22 19:35 (units unknown) (unknown) (unknown) (no date) (unknown) (unknown) Substance Use Type: does not use (units unknown) (unknown) (unknown) (no date) (unknown) (unknown) Temperature 97.5 F L 08/22/22 18:28 (units unknown) (unknown) (unknown) (no date) (unknown) (unknown) Temperature 97.5 F L (units unknown) (unknown) (unknown) (no date) (unknown) (unknown) Time Seen by Provide r: 08/22/22 18:36 (units unknown) (unknown) (unknown) (no date) (unknown) (unknown) Total Bilirubin (0.2-1.3) mg/dL (units unknown) (unknown) (unknown) (no date) (unknown) (unknown) Total Bilirubin 0.7 (0.2-1.3) mg/dL (units unknown) (unknown) (unknown) (no date) (unknown) (unknown) Total Creatine [place] e (30-135) U/L (units unknown) (unknown) (unknown) (no date) (unknown) (unknown) Total Creatine [place] e 153 H (30-135) U/L (units unknown) (unknown) (unknown) (no date) (unknown) (unknown) Total Protein (6.3-8.2) g/dL (units unknown) (unknown) (unknown) (no date) (unknown) (unknown) Total Protein 7.3 (6.3-8.2) g/dL (units unknown) (unknown) (unknown) (no date) (unknown) (unknown) Troponin + CK Cardia c Panel Stat (units unknown) (unknown) (unknown) (no date) (unknown) (unknown) Troponin I < 0.012 (0.01-0.034) ng/mL (units unknown) (unknown) (unknown) (no date) (unknown) (unknown) Troponin I (0.01-0.034) ng/mL (units unknown) (unknown) (unknown) (no date) (unknown) (unknown) Vital Signs - 8 hr (units unknown) (unknown) (unknown) (no date) (unknown) (unknown) Vital Signs (units unknown) (unknown) (unknown) (no date) (unknown) (unknown) Vital signs: (units unknown) (unknown) (unknown) (no date) (unknown) (unknown) WBC (4.5-11.0) X103/uL (units unknown) (unknown) (unknown) (no date) (unknown) (unknown) WBC 9.5 (4.5-11.0) X103/uL (units unknown) (unknown) (unknown) (no date) (unknown) (unknown) XR chest 1V Stat (units unknown) (unknown) (unknown) (no date) (unknown) (unknown) [Embedded Image Not Available] (units unknown) (unknown) (unknown) (no date) (unknown) (unknown) about 1 hour now the y have completely resolved. No numbness tingling weakness (units unknown) (unknown) (unknown) (no date) (unknown) (unknown) acetaminophen 650 MG tablet extended release (units unknown) (unknown) (unknown) (no date) (unknown) (unknown) acetaminophen 650 mg 2 tab PO QDAYP PRN ##0 12/02/16 05/10/18 (units unknown) (unknown) (unknown) (no date) (unknown) (unknown) alcohol intake frequency: holidays/special occasions only (units unknown) (unknown) (unknown) (no date) (unknown) (unknown) and below (units unknown) (unknown) (unknown) (no date) (unknown) (unknown) celecoxib 200 mg capsule (Celebrex) 200 mg PO DAILY #30 caps 01/05/18 (units unknown) (unknown) (unknown) (no date) (unknown) (unknown) celecoxib [Celebrex] 200 mg capsule (units unknown) (unknown) (unknown) (no date) (unknown) (unknown) chest pain palpitations abdominal pain or other symptoms. No prior history of (units unknown) (unknown) (unknown) (no date) (unknown) (unknown) hydrochlorothiazide 12.5 MG capsule (units unknown) (unknown) (unknown) (no date) (unknown) (unknown) hydrochlorothiazide 12.5 mg capsule 12.5 mg PO SEE INSTRUCTIONS ##0 12/02/16 (units unknown) (unknown) (unknown) (no date) (unknown) (unknown) hydrocodone 5 mg-acetaminophen 325 1 tab PO Q4HP PRN #60 tabs 12/13/16 (units unknown) (unknown) (unknown) (no date) (unknown) (unknown) hydrocodone-acetamin op hen [[place]] 5 MG/325 MG tablet (units unknown) (unknown) (unknown) (no date) (unknown) (unknown) lisinopril 10 MG tablet (units unknown) (unknown) (unknown) (no date) (unknown) (unknown) lisinopril 10 mg tablet 10 mg PO BID ##0 12/02/16 05/10/18 (units unknown) (unknown) (unknown) (no date) (unknown) (unknown) metformin 500 mg tablet,extended 500 mg PO BID ##0 12/02/16 05/10/18 (units unknown) (unknown) (unknown) (no date) (unknown) (unknown) metformin [Glucophag e XR] 500 MG tablet extended release 24 hr (units unknown) (unknown) (unknown) (no date) (unknown) (unknown) mg tablet ([place]) (units unknown) (unknown) (unknown) (no date) (unknown) (unknown) omega 1-osh-vvb-fish oil 1,000 mg 1,200 mg PO QDAY ##0 12/02/16 05/10/18 (units unknown) (unknown) (unknown) (no date) (unknown) (unknown) omega 7-dat-nhr-fish oil [Fish Oil] 1,000 MG capsule (units unknown) (unknown) (unknown) (no date) (unknown) (unknown) omeprazole 20 MG capsule,delayed release(DR/EC) (units unknown) (unknown) (unknown) (no date) (unknown) (unknown) omeprazole 20 mg capsule,delayed 20 mg PO QDAY ##0 12/02/16 05/10/18 (units unknown) (unknown) (unknown) (no date) (unknown) (unknown) presenting today wit h sudden onset dizziness. She reports that she just got her (units unknown) (unknown) (unknown) (no date) (unknown) (unknown) release 24 hr (Glucophage XR) (units unknown) (unknown) (unknown) (no date) (unknown) (unknown) release (units unknown) (unknown) (unknown) (no date) (unknown) (unknown) simvastatin 20 MG tablet (units unknown) (unknown) (unknown) (no date) (unknown) (unknown) simvastatin 20 mg tablet 20 mg PO HS ##0 12/02/16 05/10/18 (units unknown) (unknown) (unknown) (no date) (unknown) (unknown) tablet,extended release (units unknown) (unknown) (unknown) (no date) (unknown) (unknown) talk about she was sitting at home she felt extremely dizzy unable to stand and (units unknown) (unknown) (unknown) (no date) (unknown) (unknown) vertigo. Overall feeling significantly better. (units unknown) (unknown) (unknown) (no date) (unknown) (unknown) walk the room was spinning she got nauseous and vomiting. Symptoms lasted for (units unknown) (unknown) Result panel 102 (unknown) (no date) (unknown) (unknown) (no value) (units unknown) (unknown) (unknown) (no date) (unknown) (unknown) (120 mg-180 mg) capsule (Fish Oil) (units unknown) (unknown) (unknown) (no date) (unknown) (unknown) 05/10/18 (units unknown) (unknown) (unknown) (no date) (unknown) (unknown) 08/22/22 08/22/22 08/22/22 Range/Units (units unknown) (unknown) (unknown) (no date) (unknown) (unknown) 08/22/22 18:24 (units unknown) (unknown) (unknown) (no date) (unknown) (unknown) 08/22/22 18:30 (units unknown) (unknown) (unknown) (no date) (unknown) (unknown) 08/22/22 18:36 (units unknown) (unknown) (unknown) (no date) (unknown) (unknown) 08/22/22 18:45 (units unknown) (unknown) (unknown) (no date) (unknown) (unknown) 08/22/22 Range/Units (units unknown) (unknown) (unknown) (no date) (unknown) (unknown) 08/22/22 (units unknown) (unknown) (unknown) (no date) (unknown) (unknown) 1 tab PO Q4HP PRNQty : 60 0RF (units unknown) (unknown) (unknown) (no date) (unknown) (unknown) 1,200 mg PO QDAY Qty : 0 (units unknown) (unknown) (unknown) (no date) (unknown) (unknown) 10 mg PO BID Qty: 0 (units unknown) (unknown) (unknown) (no date) (unknown) (unknown) 12.5 mg PO SEE INSTRUCTIONS Qty: 0 (units unknown) (unknown) (unknown) (no date) (unknown) (unknown) 18:24 08/22/22 (units unknown) (unknown) (unknown) (no date) (unknown) (unknown) 18:24 18:24 18:24 (units unknown) (unknown) (unknown) (no date) (unknown) (unknown) 18:28 08/22/22 (units unknown) (unknown) (unknown) (no date) (unknown) (unknown) 18:30 (units unknown) (unknown) (unknown) (no date) (unknown) (unknown) 18:31 08/22/22 (units unknown) (unknown) (unknown) (no date) (unknown) (unknown) 18:45 (units unknown) (unknown) (unknown) (no date) (unknown) (unknown) 19:00 (units unknown) (unknown) (unknown) (no date) (unknown) (unknown) 2 tab PO QDAYP PRNQt y: 0 (units unknown) (unknown) (unknown) (no date) (unknown) (unknown) 20 mg PO HS Qty: 0 (units unknown) (unknown) (unknown) (no date) (unknown) (unknown) 20 mg PO QDAY Qty: 0 (units unknown) (unknown) (unknown) (no date) (unknown) (unknown) 200 mg PO DAILY Qty: 30 2RF (units unknown) (unknown) (unknown) (no date) (unknown) (unknown) 500 mg PO BID Qty: 0 (units unknown) (unknown) (unknown) (no date) (unknown) (unknown) ABDOMEN: Soft, nontender. Normoactive bowel sounds all 4 quadrants. No (units unknown) (unknown) (unknown) (no date) (unknown) (unknown) ALT (<35) IU/L (units unknown) (unknown) (unknown) (no date) (unknown) (unknown) ALT 17 (<35) IU/L (units unknown) (unknown) (unknown) (no date) (unknown) (unknown) APTT (26-36) SECONDS (units unknown) (unknown) (unknown) (no date) (unknown) (unknown) APTT 26 (26-36) SECONDS (units unknown) (unknown) (unknown) (no date) (unknown) (unknown) AST (14-36) IU/L (units unknown) (unknown) (unknown) (no date) (unknown) (unknown) AST 23 (14-36) IU/L (units unknown) (unknown) (unknown) (no date) (unknown) (unknown) Age/Sex: 87 / F (units unknown) (unknown) (unknown) (no date) (unknown) (unknown) Albumin (3.5-5.0) g/dL (units unknown) (unknown) (unknown) (no date) (unknown) (unknown) Albumin 4.2 (3.5-5.0 ) g/dL (units unknown) (unknown) (unknown) (no date) (unknown) (unknown) Albumin/Globulin Rat io (1.0-2.8) (units unknown) (unknown) (unknown) (no date) (unknown) (unknown) Albumin/Globulin Rat io 1.4 (1.0-2.8) (units unknown) (unknown) (unknown) (no date) (unknown) (unknown) Alkaline Phosphatase (38-126) U/L (units unknown) (unknown) (unknown) (no date) (unknown) (unknown) Alkaline Phosphatase 58 (38-126) U/L (units unknown) (unknown) (unknown) (no date) (unknown) (unknown) Allergies (units unknown) (unknown) (unknown) (no date) (unknown) (unknown) Allergy/AdvReac Type Severity Reaction Status Date / Time (units unknown) (unknown) (unknown) (no date) (unknown) (unknown) Aspirin (Aspirin 81 Mg Chew Tab) 324 mg PO NOW ONE (units unknown) (unknown) (unknown) (no date) (unknown) (unknown) BUN (7-17) mg/dL (units unknown) (unknown) (unknown) (no date) (unknown) (unknown) BUN 21 H (7-17) mg/dL (units unknown) (unknown) (unknown) (no date) (unknown) (unknown) BUN/Creatinine Ratio (6-22) (units unknown) (unknown) (unknown) (no date) (unknown) (unknown) BUN/Creatinine Ratio 23.6 H (6-22) (units unknown) (unknown) (unknown) (no date) (unknown) (unknown) Baso # (Auto) (0-100 ) /uL (units unknown) (unknown) (unknown) (no date) (unknown) (unknown) Baso # (Auto) 100 (0-100) /uL (units unknown) (unknown) (unknown) (no date) (unknown) (unknown) Baso % (Auto) (0-2) % (units unknown) (unknown) (unknown) (no date) (unknown) (unknown) Baso % (Auto) 1.4 (0-2) % (units unknown) (unknown) (unknown) (no date) (unknown) (unknown) Blood Pressure 122/82 (units unknown) (unknown) (unknown) (no date) (unknown) (unknown) Blood Pressure 194/9 0 H 195/84 H (units unknown) (unknown) (unknown) (no date) (unknown) (unknown) Blood Pressure (units unknown) (unknown) (unknown) (no date) (unknown) (unknown) CARDIOVASCULAR: Regular rate and rhythm without murmurs, rubs or gallops. (units unknown) (unknown) (unknown) (no date) (unknown) (unknown) CK-MB (CK-2) (<2.37) ng/mL (units unknown) (unknown) (unknown) (no date) (unknown) (unknown) CK-MB (CK-2) 1.72 (<2.37) ng/mL (units unknown) (unknown) (unknown) (no date) (unknown) (unknown) CK-MB (CK-2) Rel Ind ex (1.5-5.0) % (units unknown) (unknown) (unknown) (no date) (unknown) (unknown) CK-MB (CK-2) Rel Ind ex 1.1 L (1.5-5.0) % (units unknown) (unknown) (unknown) (no date) (unknown) (unknown) COVID19 -Nasal RAPID Stat (units unknown) (unknown) (unknown) (no date) (unknown) (unknown) CT angio head and ne ck Stat (units unknown) (unknown) (unknown) (no date) (unknown) (unknown) Calcium (8.4-10.2) mg/dL (units unknown) (unknown) (unknown) (no date) (unknown) (unknown) Calcium 8.8 (8.4-10. 2) mg/dL (units unknown) (unknown) (unknown) (no date) (unknown) (unknown) Carbon Dioxide (22-3 2) mmol/L (units unknown) (unknown) (unknown) (no date) (unknown) (unknown) Carbon Dioxide 24 (22-32) mmol/L (units unknown) (unknown) (unknown) (no date) (unknown) (unknown) Chief Complaint: Dizziness (units unknown) (unknown) (unknown) (no date) (unknown) (unknown) Chloride (98-107) mmol/L (units unknown) (unknown) (unknown) (no date) (unknown) (unknown) Chloride 101 (98-107 ) mmol/L (units unknown) (unknown) (unknown) (no date) (unknown) (unknown) Chronic kidney disease, stage 3 (units unknown) (unknown) (unknown) (no date) (unknown) (unknown) Complete Blood Count AUTO DIFF Stat (units unknown) (unknown) (unknown) (no date) (unknown) (unknown) Comprehensive Metabolic Panel Stat (units unknown) (unknown) (unknown) (no date) (unknown) (unknown) Course (units unknown) (unknown) (unknown) (no date) (unknown) (unknown) Creatinine (0.52-1.0 4) mg/dL (units unknown) (unknown) (unknown) (no date) (unknown) (unknown) Creatinine 0.89 (0.52-1.04) mg/dL (units unknown) (unknown) (unknown) (no date) (unknown) (unknown) : 1935 Acct:[id number] (units unknown) (unknown) (unknown) (no date) (unknown) (unknown) Date of Service: 08/22/22 (units unknown) (unknown) (unknown) (no date) (unknown) (unknown) Departure (units unknown) (unknown) (unknown) (no date) (unknown) (unknown) Diabetes type 2, controlled (units unknown) (unknown) (unknown) (no date) (unknown) (unknown) Discharge Plan (units unknown) (unknown) (unknown) (no date) (unknown) (unknown) Discontinued Medications (units unknown) (unknown) (unknown) (no date) (unknown) (unknown) Documented By: KM (units unknown) (unknown) (unknown) (no date) (unknown) (unknown) Documented By: RL (units unknown) (unknown) (unknown) (no date) (unknown) (unknown) ED Orders (units unknown) (unknown) (unknown) (no date) (unknown) (unknown) EKG-12 Lead Stat (units unknown) (unknown) (unknown) (no date) (unknown) (unknown) ER Physician: Gabriella Funez D.O. (units unknown) (unknown) (unknown) (no date) (unknown) (unknown) EXTREMITIES: Normal range of motion, no clubbing or edema. Neurovascularly (units unknown) (unknown) (unknown) (no date) (unknown) (unknown) Emergency Report (units unknown) (unknown) (unknown) (no date) (unknown) (unknown) Eos # (Auto) (0-450) /uL (units unknown) (unknown) (unknown) (no date) (unknown) (unknown) Eos # (Auto) 300 (0-450) /uL (units unknown) (unknown) (unknown) (no date) (unknown) (unknown) Eos % (Auto) (2-4) % (units unknown) (unknown) (unknown) (no date) (unknown) (unknown) Eos % (Auto) 3.5 (2- 4) % (units unknown) (unknown) (unknown) (no date) (unknown) (unknown) Estimated GFR > 60 (>60) mL/min (units unknown) (unknown) (unknown) (no date) (unknown) (unknown) Estimated GFR (>60) mL/min (units unknown) (unknown) (unknown) (no date) (unknown) (unknown) Exam (units unknown) (unknown) (unknown) (no date) (unknown) (unknown) GENERAL: Alert well-appearing 87 year old female no acute distress (units unknown) (unknown) (unknown) (no date) (unknown) (unknown) GERD (gastroesophage al reflux disease) (units unknown) (unknown) (unknown) (no date) (unknown) (unknown) General (units unknown) (unknown) (unknown) (no date) (unknown) (unknown) Globulin (1.7-4.1) g/dL (units unknown) (unknown) (unknown) (no date) (unknown) (unknown) Globulin 3.1 (1.7-4. 1) g/dL (units unknown) (unknown) (unknown) (no date) (unknown) (unknown) Glucose (80-110) mg/dL (units unknown) (unknown) (unknown) (no date) (unknown) (unknown) Glucose 159 H (80-11 0) mg/dL (units unknown) (unknown) (unknown) (no date) (unknown) (unknown) HEENT: Head atraumatic,EOMI, pupils reactive, no nystagmus, face symmetric, (units unknown) (unknown) (unknown) (no date) (unknown) (unknown) HPI - Dizziness (units unknown) (unknown) (unknown) (no date) (unknown) (unknown) HPI Narrative: (units unknown) (unknown) (unknown) (no date) (unknown) (unknown) Hct (36-46) % (units unknown) (unknown) (unknown) (no date) (unknown) (unknown) Hct 35.0 L (36-46) % (units unknown) (unknown) (unknown) (no date) (unknown) (unknown) Hgb (12.0-16.0) g/dL (units unknown) (unknown) (unknown) (no date) (unknown) (unknown) Hgb 11.9 L (12.0-16. 0) g/dL (units unknown) (unknown) (unknown) (no date) (unknown) (unknown) History of Present Illness (units unknown) (unknown) (unknown) (no date) (unknown) (unknown) Home Medications (units unknown) (unknown) (unknown) (no date) (unknown) (unknown) Hyperlipidemia (units unknown) (unknown) (unknown) (no date) (unknown) (unknown) Hypertension (units unknown) (unknown) (unknown) (no date) (unknown) (unknown) INR (0.9-1.3) (units unknown) (unknown) (unknown) (no date) (unknown) (unknown) INR 1.0 (0.9-1.3) (units unknown) (unknown) (unknown) (no date) (unknown) (unknown) Initial Vital Signs (units unknown) (unknown) (unknown) (no date) (unknown) (unknown) Initial Vital Signs: (units unknown) (unknown) (unknown) (no date) (unknown) (unknown) [address] [address] (units unknown) (unknown) (unknown) (no date) (unknown) (unknown) Godwin Cummings MD [Primary Care Provider] (units unknown) (unknown) (unknown) (no date) (unknown) (unknown) Lab Data (units unknown) (unknown) (unknown) (no date) (unknown) (unknown) Lab Results (units unknown) (unknown) (unknown) (no date) (unknown) (unknown) Labs: (units unknown) (unknown) (unknown) (no date) (unknown) (unknown) Last Admin: 08/22/22 18:43 Dose: 25 mg (units unknown) (unknown) (unknown) (no date) (unknown) (unknown) Last Admin: 08/22/22 18:43 Dose: Not Given (units unknown) (unknown) (unknown) (no date) (unknown) (unknown) Last Admin: 08/22/22 18:44 Dose: 1,000 mls/hr (units unknown) (unknown) (unknown) (no date) (unknown) (unknown) Lipase (23-300) U/L (units unknown) (unknown) (unknown) (no date) (unknown) (unknown) Lipase 54 (23-300) U/L (units unknown) (unknown) (unknown) (no date) (unknown) (unknown) Lipase Stat (units unknown) (unknown) (unknown) (no date) (unknown) (unknown) Lymph # (Auto) (2017-1330) /uL (units unknown) (unknown) (unknown) (no date) (unknown) (unknown) Lymph # (Auto) 3100 (7867-0478) /uL (units unknown) (unknown) (unknown) (no date) (unknown) (unknown) Lymph % (Auto) (25-4 0) % (units unknown) (unknown) (unknown) (no date) (unknown) (unknown) Lymph % (Auto) 32.3 (25-40) % (units unknown) (unknown) (unknown) (no date) (unknown) (unknown) [id number] (units unknown) (unknown) (unknown) (no date) (unknown) (unknown) MCH (26-34) PG (units unknown) (unknown) (unknown) (no date) (unknown) (unknown) MCH 30.5 (26-34) PG (units unknown) (unknown) (unknown) (no date) (unknown) (unknown) MCHC (30-36) % (units unknown) (unknown) (unknown) (no date) (unknown) (unknown) MCHC 33.9 (30-36) % (units unknown) (unknown) (unknown) (no date) (unknown) (unknown) MCV (80-100) fL (units unknown) (unknown) (unknown) (no date) (unknown) (unknown) MCV 89.8 (80-100) fL (units unknown) (unknown) (unknown) (no date) (unknown) (unknown) MDM - Dizziness (units unknown) (unknown) (unknown) (no date) (unknown) (unknown) Magnesium (1.6-2.3) mg/dL (units unknown) (unknown) (unknown) (no date) (unknown) (unknown) Magnesium 1.6 (1.6-2.3) mg/dL (units unknown) (unknown) (unknown) (no date) (unknown) (unknown) Magnesium Stat (units unknown) (unknown) (unknown) (no date) (unknown) (unknown) Meclizine HCl (Meclizine Hcl 12.5 Mg Tablet) 25 mg PO NOW ONE (units unknown) (unknown) (unknown) (no date) (unknown) (unknown) Medical History (units unknown) (unknown) (unknown) (no date) (unknown) (unknown) Medication Instructions Recorded Confirmed (units unknown) (unknown) (unknown) (no date) (unknown) (unknown) Medication Instructions Recorded (units unknown) (unknown) (unknown) (no date) (unknown) (unknown) Mode of arrival: EMS (units unknown) (unknown) (unknown) (no date) (unknown) (unknown) [place] # (Auto) (0-900 ) /uL (units unknown) (unknown) (unknown) (no date) (unknown) (unknown) [place] # (Auto) 700 (0-900) /uL (units unknown) (unknown) (unknown) (no date) (unknown) (unknown) [place] % (Auto) (3-14) % (units unknown) (unknown) (unknown) (no date) (unknown) (unknown) [place] % (Auto) 6.9 (3-14) % (units unknown) (unknown) (unknown) (no date) (unknown) (unknown) NEUROLOGICAL: Alert and oriented x4.Normal gait and speech. Cranial nerves II (units unknown) (unknown) (unknown) (no date) (unknown) (unknown) Neut # (Auto) (0950-1991) /uL (units unknown) (unknown) (unknown) (no date) (unknown) (unknown) Neut # (Auto) 5300 (2617-2778) /uL (units unknown) (unknown) (unknown) (no date) (unknown) (unknown) Neut % (Auto) (50-75 ) % (units unknown) (unknown) (unknown) (no date) (unknown) (unknown) Neut % (Auto) 55.9 (50-75) % (units unknown) (unknown) (unknown) (no date) (unknown) (unknown) No Action (units unknown) (unknown) (unknown) (no date) (unknown) (unknown) No Known Drug Allergies Allergy Verified 08/22/22 18:28 (units unknown) (unknown) (unknown) (no date) (unknown) (unknown) Ordered: (units unknown) (unknown) (unknown) (no date) (unknown) (unknown) Orders (units unknown) (unknown) (unknown) (no date) (unknown) (unknown) Oxygen Delivery Meth od Room Air (units unknown) (unknown) (unknown) (no date) (unknown) (unknown) Oxygen Delivery Method (units unknown) (unknown) (unknown) (no date) (unknown) (unknown) PT (10.1-12.7) SECONDS (units unknown) (unknown) (unknown) (no date) (unknown) (unknown) PT 11.8 (10.1-12.7) SECONDS (units unknown) (unknown) (unknown) (no date) (unknown) (unknown) PTT Partial Thromboplastin [place] Stat (units unknown) (unknown) (unknown) (no date) (unknown) (unknown) Patient History (units unknown) (unknown) (unknown) (no date) (unknown) (unknown) Patient is 87-year-o ld female history of insulin-dependent diabetes hypertension (units unknown) (unknown) (unknown) (no date) (unknown) (unknown) Patient: Genesis Mullins MR#: (units unknown) (unknown) (unknown) (no date) (unknown) (unknown) Plt Count (150-400) X103/uL (units unknown) (unknown) (unknown) (no date) (unknown) (unknown) Plt Count 257 (150-400) X103/uL (units unknown) (unknown) (unknown) (no date) (unknown) (unknown) Potassium (3.4-5.1) mmol/L (units unknown) (unknown) (unknown) (no date) (unknown) (unknown) Potassium 4.0 (3.4-5.1) mmol/L (units unknown) (unknown) (unknown) (no date) (unknown) (unknown) Prescriptions: (units unknown) (unknown) (unknown) (no date) (unknown) (unknown) Previous Rx's (units unknown) (unknown) (unknown) (no date) (unknown) (unknown) Prothrombin Time INR Stat (units unknown) (unknown) (unknown) (no date) (unknown) (unknown) Pulse Oximetry 97 (units unknown) (unknown) (unknown) (no date) (unknown) (unknown) Pulse Oximetry 98 08/22/22 18:24 (units unknown) (unknown) (unknown) (no date) (unknown) (unknown) Pulse Oximetry 98 98 98 (units unknown) (unknown) (unknown) (no date) (unknown) (unknown) Pulse Oximetry 98 (units unknown) (unknown) (unknown) (no date) (unknown) (unknown) Pulse Rate 64 (units unknown) (unknown) (unknown) (no date) (unknown) (unknown) Pulse Rate 65 (units unknown) (unknown) (unknown) (no date) (unknown) (unknown) Pulse Rate 70 18:24 (units unknown) (unknown) (unknown) (no date) (unknown) (unknown) Pulse Rate 71 70 64 (units unknown) (unknown) (unknown) (no date) (unknown) (unknown) RBC (4.0-5.2) X106/uL (units unknown) (unknown) (unknown) (no date) (unknown) (unknown) RBC 3.90 L (4.0-5.2) X106/uL (units unknown) (unknown) (unknown) (no date) (unknown) (unknown) RDW (11.6-14.8) % (units unknown) (unknown) (unknown) (no date) (unknown) (unknown) RDW 14.1 (11.6-14.8) % (units unknown) (unknown) (unknown) (no date) (unknown) (unknown) RESPIRATORY: Breath sounds equal bilaterally, no wheezes rales or rhonchi. (units unknown) (unknown) (unknown) (no date) (unknown) (unknown) ROS Unobtainable: Al l systems reviewed + are unremarkable except as noted in HPI (units unknown) (unknown) (unknown) (no date) (unknown) (unknown) Referrals: (units unknown) (unknown) (unknown) (no date) (unknown) (unknown) Related Data (units unknown) (unknown) (unknown) (no date) (unknown) (unknown) Respiratory Rate 11 L (units unknown) (unknown) (unknown) (no date) (unknown) (unknown) Respiratory Rate 16 08/22/22 18:24 (units unknown) (unknown) (unknown) (no date) (unknown) (unknown) Respiratory Rate 20 16 12 (units unknown) (unknown) (unknown) (no date) (unknown) (unknown) Respiratory Rate 31 H (units unknown) (unknown) (unknown) (no date) (unknown) (unknown) Review of Systems (units unknown) (unknown) (unknown) (no date) (unknown) (unknown) SARS-CoV-2 (PCR) (Negative) (units unknown) (unknown) (unknown) (no date) (unknown) (unknown) SARS-CoV-2 (PCR) Negative (Negative) (units unknown) (unknown) (unknown) (no date) (unknown) (unknown) SKIN: Warm, dry, no laceration, no petechiae, no rashes or lesions. (units unknown) (unknown) (unknown) (no date) (unknown) (unknown) Signed By: (units unknown) (unknown) (unknown) (no date) (unknown) (unknown) Smoking Status: Neve r smoker (units unknown) (unknown) (unknown) (no date) (unknown) (unknown) Social History (units unknown) (unknown) (unknown) (no date) (unknown) (unknown) Sodium (137-145) mmol/L (units unknown) (unknown) (unknown) (no date) (unknown) (unknown) Sodium 136 L (137-14 5) mmol/L (units unknown) (unknown) (unknown) (no date) (unknown) (unknown) Sodium Chloride (Normal Saline 0.9%) 1,000 mls @ 1,000 mls/hr IV BOLUS ONE (units unknown) (unknown) (unknown) (no date) (unknown) (unknown) Source: patient and EMS (units unknown) (unknown) (unknown) (no date) (unknown) (unknown) Stated Complaint: dizzy, nausea, vomitting (units unknown) (unknown) (unknown) (no date) (unknown) (unknown) Stop: 08/22/22 18:31 (units unknown) (unknown) (unknown) (no date) (unknown) (unknown) Stop: 08/22/22 18:37 (units unknown) (unknown) (unknown) (no date) (unknown) (unknown) Stop: 08/22/22 19:35 (units unknown) (unknown) (unknown) (no date) (unknown) (unknown) Substance Use Type: does not use (units unknown) (unknown) (unknown) (no date) (unknown) (unknown) Temperature 97.5 F L (units unknown) (unknown) (unknown) (no date) (unknown) (unknown) Temperature (units unknown) (unknown) (unknown) (no date) (unknown) (unknown) Time Seen by Provide r: 08/22/22 18:36 (units unknown) (unknown) (unknown) (no date) (unknown) (unknown) Total Bilirubin (0.2-1.3) mg/dL (units unknown) (unknown) (unknown) (no date) (unknown) (unknown) Total Bilirubin 0.7 (0.2-1.3) mg/dL (units unknown) (unknown) (unknown) (no date) (unknown) (unknown) Total Creatine Kin[place] e (30-135) U/L (units unknown) (unknown) (unknown) (no date) (unknown) (unknown) Total Creatine Kin[place] e 153 H (30-135) U/L (units unknown) (unknown) (unknown) (no date) (unknown) (unknown) Total Protein (6.3-8.2) g/dL (units unknown) (unknown) (unknown) (no date) (unknown) (unknown) Total Protein 7.3 (6.3-8.2) g/dL (units unknown) (unknown) (unknown) (no date) (unknown) (unknown) Troponin + CK Cardia c Panel Stat (units unknown) (unknown) (unknown) (no date) (unknown) (unknown) Troponin I < 0.012 (0.01-0.034) ng/mL (units unknown) (unknown) (unknown) (no date) (unknown) (unknown) Troponin I (0.01-0.034) ng/mL (units unknown) (unknown) (unknown) (no date) (unknown) (unknown) Vital Signs - 8 hr (units unknown) (unknown) (unknown) (no date) (unknown) (unknown) Vital Signs (units unknown) (unknown) (unknown) (no date) (unknown) (unknown) Vital signs: (units unknown) (unknown) (unknown) (no date) (unknown) (unknown) WBC (4.5-11.0) X103/uL (units unknown) (unknown) (unknown) (no date) (unknown) (unknown) WBC 9.5 (4.5-11.0) X103/uL (units unknown) (unknown) (unknown) (no date) (unknown) (unknown) XR chest 1V Stat (units unknown) (unknown) (unknown) (no date) (unknown) (unknown) [Embedded Image Not Available] (units unknown) (unknown) (unknown) (no date) (unknown) (unknown) about 1 hour now the y have completely resolved. No numbness tingling weakness (units unknown) (unknown) (unknown) (no date) (unknown) (unknown) acetaminophen 650 MG tablet extended release (units unknown) (unknown) (unknown) (no date) (unknown) (unknown) acetaminophen 650 mg 2 tab PO QDAYP PRN ##0 12/02/16 05/10/18 (units unknown) (unknown) (unknown) (no date) (unknown) (unknown) alcohol intake frequency: holidays/special occasions only (units unknown) (unknown) (unknown) (no date) (unknown) (unknown) and below (units unknown) (unknown) (unknown) (no date) (unknown) (unknown) bilaterally, no visu al changes, no facial droop (units unknown) (unknown) (unknown) (no date) (unknown) (unknown) celecoxib 200 mg capsule (Celebrex) 200 mg PO DAILY #30 caps 01/05/18 (units unknown) (unknown) (unknown) (no date) (unknown) (unknown) celecoxib [Celebrex] 200 mg capsule (units unknown) (unknown) (unknown) (no date) (unknown) (unknown) chest pain palpitations abdominal pain or other symptoms. No prior history of (units unknown) (unknown) (unknown) (no date) (unknown) (unknown) equal bilaterally, n o dysarthria or aphasia, sensation in tact to soft touch (units unknown) (unknown) (unknown) (no date) (unknown) (unknown) guarding or rebound. (units unknown) (unknown) (unknown) (no date) (unknown) (unknown) hydrochlorothiazide 12.5 MG capsule (units unknown) (unknown) (unknown) (no date) (unknown) (unknown) hydrochlorothiazide 12.5 mg capsule 12.5 mg PO SEE INSTRUCTIONS ##0 12/02/16 (units unknown) (unknown) (unknown) (no date) (unknown) (unknown) hydrocodone 5 mg-acetaminophen 325 1 tab PO Q4HP PRN #60 tabs 12/13/16 (units unknown) (unknown) (unknown) (no date) (unknown) (unknown) hydrocodone-acetamin op hen [[place]] 5 MG/325 MG tablet (units unknown) (unknown) (unknown) (no date) (unknown) (unknown) intact (units unknown) (unknown) (unknown) (no date) (unknown) (unknown) lisinopril 10 MG tablet (units unknown) (unknown) (unknown) (no date) (unknown) (unknown) lisinopril 10 mg tablet 10 mg PO BID ##0 12/02/16 05/10/18 (units unknown) (unknown) (unknown) (no date) (unknown) (unknown) metformin 500 mg tablet,extended 500 mg PO BID ##0 12/02/16 05/10/18 (units unknown) (unknown) (unknown) (no date) (unknown) (unknown) metformin [Glucophag e XR] 500 MG tablet extended release 24 hr (units unknown) (unknown) (unknown) (no date) (unknown) (unknown) mg tablet ([place]) (units unknown) (unknown) (unknown) (no date) (unknown) (unknown) moist mucous membranes (units unknown) (unknown) (unknown) (no date) (unknown) (unknown) omega 8-una-gsu-fish oil 1,000 mg 1,200 mg PO QDAY ##0 12/02/16 05/10/18 (units unknown) (unknown) (unknown) (no date) (unknown) (unknown) omega 0-oln-tod-fish oil [Fish Oil] 1,000 MG capsule (units unknown) (unknown) (unknown) (no date) (unknown) (unknown) omeprazole 20 MG capsule,delayed release(DR/EC) (units unknown) (unknown) (unknown) (no date) (unknown) (unknown) omeprazole 20 mg capsule,delayed 20 mg PO QDAY ##0 17 05/10/18 (units unknown) (unknown) (unknown) (no date) (unknown) (unknown) presenting today wit h sudden onset dizziness. She reports that she just got her (units unknown) (unknown) (unknown) (no date) (unknown) (unknown) release 24 hr (Glucophage XR) (units unknown) (unknown) (unknown) (no date) (unknown) (unknown) release (units unknown) (unknown) (unknown) (no date) (unknown) (unknown) simvastatin 20 MG tablet (units unknown) (unknown) (unknown) (no date) (unknown) (unknown) simvastatin 20 mg tablet 20 mg PO HS ##0 12/02/16 05/10/18 (units unknown) (unknown) (unknown) (no date) (unknown) (unknown) tablet,extended release (units unknown) (unknown) (unknown) (no date) (unknown) (unknown) talk about she was sitting at home she felt extremely dizzy unable to stand and (units unknown) (unknown) (unknown) (no date) (unknown) (unknown) through XII grossly intact. Good fabddn-us-ljmr, good cikk-zb-keks, strength (units unknown) (unknown) (unknown) (no date) (unknown) (unknown) vertigo. Overall feeling significantly better. (units unknown) (unknown) (unknown) (no date) (unknown) (unknown) walk the room was spinning she got nauseous and vomiting. Symptoms lasted for (units unknown) (unknown) Result panel 103 (unknown) (no date) (unknown) (unknown) (no value) (units unknown) (unknown) (unknown) (no date) (unknown) (unknown) (120 mg-180 mg) capsule (Fish Oil) (units unknown) (unknown) (unknown) (no date) (unknown) (unknown) 05/10/18 (units unknown) (unknown) (unknown) (no date) (unknown) (unknown) 08/22/22 08/22/22 08/22/22 Range/Units (units unknown) (unknown) (unknown) (no date) (unknown) (unknown) 08/22/22 18:24 (units unknown) (unknown) (unknown) (no date) (unknown) (unknown) 08/22/22 18:30 (units unknown) (unknown) (unknown) (no date) (unknown) (unknown) 08/22/22 18:36 (units unknown) (unknown) (unknown) (no date) (unknown) (unknown) 08/22/22 18:45 (units unknown) (unknown) (unknown) (no date) (unknown) (unknown) 08/22/22 Range/Units (units unknown) (unknown) (unknown) (no date) (unknown) (unknown) 08/22/22 (units unknown) (unknown) (unknown) (no date) (unknown) (unknown) 1 tab PO Q4HP PRNQty : 60 0RF (units unknown) (unknown) (unknown) (no date) (unknown) (unknown) 1,200 mg PO QDAY Qty : 0 (units unknown) (unknown) (unknown) (no date) (unknown) (unknown) 10 mg PO BID Qty: 0 (units unknown) (unknown) (unknown) (no date) (unknown) (unknown) 12.5 mg PO SEE INSTRUCTIONS Qty: 0 (units unknown) (unknown) (unknown) (no date) (unknown) (unknown) 18:24 08/22/22 (units unknown) (unknown) (unknown) (no date) (unknown) (unknown) 18:24 18:24 18:24 (units unknown) (unknown) (unknown) (no date) (unknown) (unknown) 18:28 08/22/22 (units unknown) (unknown) (unknown) (no date) (unknown) (unknown) 18:30 (units unknown) (unknown) (unknown) (no date) (unknown) (unknown) 18:31 08/22/22 (units unknown) (unknown) (unknown) (no date) (unknown) (unknown) 18:45 (units unknown) (unknown) (unknown) (no date) (unknown) (unknown) 19:00 (units unknown) (unknown) (unknown) (no date) (unknown) (unknown) 2 tab PO QDAYP PRNQt y: 0 (units unknown) (unknown) (unknown) (no date) (unknown) (unknown) 20 mg PO HS Qty: 0 (units unknown) (unknown) (unknown) (no date) (unknown) (unknown) 20 mg PO QDAY Qty: 0 (units unknown) (unknown) (unknown) (no date) (unknown) (unknown) 200 mg PO DAILY Qty: 30 2RF (units unknown) (unknown) (unknown) (no date) (unknown) (unknown) 500 mg PO BID Qty: 0 (units unknown) (unknown) (unknown) (no date) (unknown) (unknown) ABDOMEN: Soft, nontender. Normoactive bowel sounds all 4 quadrants. No (units unknown) (unknown) (unknown) (no date) (unknown) (unknown) ALT (<35) IU/L (units unknown) (unknown) (unknown) (no date) (unknown) (unknown) ALT 17 (<35) IU/L (units unknown) (unknown) (unknown) (no date) (unknown) (unknown) APTT (26-36) SECONDS (units unknown) (unknown) (unknown) (no date) (unknown) (unknown) APTT 26 (26-36) SECONDS (units unknown) (unknown) (unknown) (no date) (unknown) (unknown) AST (14-36) IU/L (units unknown) (unknown) (unknown) (no date) (unknown) (unknown) AST 23 (14-36) IU/L (units unknown) (unknown) (unknown) (no date) (unknown) (unknown) Age/Sex: 87 / F (units unknown) (unknown) (unknown) (no date) (unknown) (unknown) Albumin (3.5-5.0) g/dL (units unknown) (unknown) (unknown) (no date) (unknown) (unknown) Albumin 4.2 (3.5-5.0 ) g/dL (units unknown) (unknown) (unknown) (no date) (unknown) (unknown) Albumin/Globulin Rat io (1.0-2.8) (units unknown) (unknown) (unknown) (no date) (unknown) (unknown) Albumin/Globulin Rat io 1.4 (1.0-2.8) (units unknown) (unknown) (unknown) (no date) (unknown) (unknown) Alkaline Phosphatase (38-126) U/L (units unknown) (unknown) (unknown) (no date) (unknown) (unknown) Alkaline Phosphatase 58 (38-126) U/L (units unknown) (unknown) (unknown) (no date) (unknown) (unknown) Allergies (units unknown) (unknown) (unknown) (no date) (unknown) (unknown) Allergy/AdvReac Type Severity Reaction Status Date / Time (units unknown) (unknown) (unknown) (no date) (unknown) (unknown) Ask month/age: Answe rs both questions correctly. (units unknown) (unknown) (unknown) (no date) (unknown) (unknown) Aspirin (Aspirin 81 Mg Chew Tab) 324 mg PO NOW ONE (units unknown) (unknown) (unknown) (no date) (unknown) (unknown) BUN (7-17) mg/dL (units unknown) (unknown) (unknown) (no date) (unknown) (unknown) BUN 21 H (7-17) mg/dL (units unknown) (unknown) (unknown) (no date) (unknown) (unknown) BUN/Creatinine Ratio (6-22) (units unknown) (unknown) (unknown) (no date) (unknown) (unknown) BUN/Creatinine Ratio 23.6 H (6-22) (units unknown) (unknown) (unknown) (no date) (unknown) (unknown) Baso # (Auto) (0-100 ) /uL (units unknown) (unknown) (unknown) (no date) (unknown) (unknown) Baso # (Auto) 100 (0-100) /uL (units unknown) (unknown) (unknown) (no date) (unknown) (unknown) Baso % (Auto) (0-2) % (units unknown) (unknown) (unknown) (no date) (unknown) (unknown) Baso % (Auto) 1.4 (0-2) % (units unknown) (unknown) (unknown) (no date) (unknown) (unknown) Best gaze horizontal : Normal (units unknown) (unknown) (unknown) (no date) (unknown) (unknown) Best language: No aphasia, normal (units unknown) (unknown) (unknown) (no date) (unknown) (unknown) Blood Pressure 122/82 (units unknown) (unknown) (unknown) (no date) (unknown) (unknown) Blood Pressure 194/9 0 H 195/84 H (units unknown) (unknown) (unknown) (no date) (unknown) (unknown) Blood Pressure (units unknown) (unknown) (unknown) (no date) (unknown) (unknown) CARDIOVASCULAR: Regular rate and rhythm without murmurs, rubs or gallops. (units unknown) (unknown) (unknown) (no date) (unknown) (unknown) CK-MB (CK-2) (<2.37) ng/mL (units unknown) (unknown) (unknown) (no date) (unknown) (unknown) CK-MB (CK-2) 1.72 (<2.37) ng/mL (units unknown) (unknown) (unknown) (no date) (unknown) (unknown) CK-MB (CK-2) Rel Ind ex (1.5-5.0) % (units unknown) (unknown) (unknown) (no date) (unknown) (unknown) CK-MB (CK-2) Rel Ind ex 1.1 L (1.5-5.0) % (units unknown) (unknown) (unknown) (no date) (unknown) (unknown) COVID19 -Nasal RAPID Stat (units unknown) (unknown) (unknown) (no date) (unknown) (unknown) CT angio head and ne ck Stat (units unknown) (unknown) (unknown) (no date) (unknown) (unknown) Calcium (8.4-10.2) mg/dL (units unknown) (unknown) (unknown) (no date) (unknown) (unknown) Calcium 8.8 (8.4-10. 2) mg/dL (units unknown) (unknown) (unknown) (no date) (unknown) (unknown) Carbon Dioxide (22-3 2) mmol/L (units unknown) (unknown) (unknown) (no date) (unknown) (unknown) Carbon Dioxide 24 (22-32) mmol/L (units unknown) (unknown) (unknown) (no date) (unknown) (unknown) Chief Complaint: Dizziness (units unknown) (unknown) (unknown) (no date) (unknown) (unknown) Chloride (98-107) mmol/L (units unknown) (unknown) (unknown) (no date) (unknown) (unknown) Chloride 101 (98-107 ) mmol/L (units unknown) (unknown) (unknown) (no date) (unknown) (unknown) Chronic kidney disease, stage 3 (units unknown) (unknown) (unknown) (no date) (unknown) (unknown) Complete Blood Count AUTO DIFF Stat (units unknown) (unknown) (unknown) (no date) (unknown) (unknown) Comprehensive Metabolic Panel Stat (units unknown) (unknown) (unknown) (no date) (unknown) (unknown) Course (units unknown) (unknown) (unknown) (no date) (unknown) (unknown) Creatinine (0.52-1.0 4) mg/dL (units unknown) (unknown) (unknown) (no date) (unknown) (unknown) Creatinine 0.89 (0.52-1.04) mg/dL (units unknown) (unknown) (unknown) (no date) (unknown) (unknown) : 1935 Acct:[id number] (units unknown) (unknown) (unknown) (no date) (unknown) (unknown) Date of Service: 08/22/22 (units unknown) (unknown) (unknown) (no date) (unknown) (unknown) Departure (units unknown) (unknown) (unknown) (no date) (unknown) (unknown) Diabetes type 2, controlled (units unknown) (unknown) (unknown) (no date) (unknown) (unknown) Discharge Plan (units unknown) (unknown) (unknown) (no date) (unknown) (unknown) Discontinued Medications (units unknown) (unknown) (unknown) (no date) (unknown) (unknown) Documented By: KM (units unknown) (unknown) (unknown) (no date) (unknown) (unknown) Documented By: RL (units unknown) (unknown) (unknown) (no date) (unknown) (unknown) Dysarthria: Normal (units unknown) (unknown) (unknown) (no date) (unknown) (unknown) ECG Data (units unknown) (unknown) (unknown) (no date) (unknown) (unknown) ED Orders (units unknown) (unknown) (unknown) (no date) (unknown) (unknown) EKG-12 Lead Stat (units unknown) (unknown) (unknown) (no date) (unknown) (unknown) ER Physician: Gabriella Funez D.O. (units unknown) (unknown) (unknown) (no date) (unknown) (unknown) EXTREMITIES: Normal range of motion, no clubbing or edema. Neurovascularly (units unknown) (unknown) (unknown) (no date) (unknown) (unknown) Emergency Report (units unknown) (unknown) (unknown) (no date) (unknown) (unknown) Eos # (Auto) (0-450) /uL (units unknown) (unknown) (unknown) (no date) (unknown) (unknown) Eos # (Auto) 300 (0-450) /uL (units unknown) (unknown) (unknown) (no date) (unknown) (unknown) Eos % (Auto) (2-4) % (units unknown) (unknown) (unknown) (no date) (unknown) (unknown) Eos % (Auto) 3.5 (2- 4) % (units unknown) (unknown) (unknown) (no date) (unknown) (unknown) Estimated GFR > 60 (>60) mL/min (units unknown) (unknown) (unknown) (no date) (unknown) (unknown) Estimated GFR (>60) mL/min (units unknown) (unknown) (unknown) (no date) (unknown) (unknown) Exam (units unknown) (unknown) (unknown) (no date) (unknown) (unknown) Extinction or inattention: No abnormality (units unknown) (unknown) (unknown) (no date) (unknown) (unknown) Facial palsy: Normal symetrical movement (units unknown) (unknown) (unknown) (no date) (unknown) (unknown) GENERAL: Alert well-appearing 87 year old female no acute distress (units unknown) (unknown) (unknown) (no date) (unknown) (unknown) GERD (gastroesophage al reflux disease) (units unknown) (unknown) (unknown) (no date) (unknown) (unknown) General (units unknown) (unknown) (unknown) (no date) (unknown) (unknown) Globulin (1.7-4.1) g/dL (units unknown) (unknown) (unknown) (no date) (unknown) (unknown) Globulin 3.1 (1.7-4. 1) g/dL (units unknown) (unknown) (unknown) (no date) (unknown) (unknown) Glucose (80-110) mg/dL (units unknown) (unknown) (unknown) (no date) (unknown) (unknown) Glucose 159 H (80-11 0) mg/dL (units unknown) (unknown) (unknown) (no date) (unknown) (unknown) HEENT: Head atraumatic,EOMI, pupils reactive, no nystagmus, face symmetric, (units unknown) (unknown) (unknown) (no date) (unknown) (unknown) HPI - Dizziness (units unknown) (unknown) (unknown) (no date) (unknown) (unknown) HPI Narrative: (units unknown) (unknown) (unknown) (no date) (unknown) (unknown) Hct (36-46) % (units unknown) (unknown) (unknown) (no date) (unknown) (unknown) Hct 35.0 L (36-46) % (units unknown) (unknown) (unknown) (no date) (unknown) (unknown) Hgb (12.0-16.0) g/dL (units unknown) (unknown) (unknown) (no date) (unknown) (unknown) Hgb 11.9 L (12.0-16. 0) g/dL (units unknown) (unknown) (unknown) (no date) (unknown) (unknown) History of Present Illness (units unknown) (unknown) (unknown) (no date) (unknown) (unknown) Home Medications (units unknown) (unknown) (unknown) (no date) (unknown) (unknown) Hyperlipidemia (units unknown) (unknown) (unknown) (no date) (unknown) (unknown) Hypertension (units unknown) (unknown) (unknown) (no date) (unknown) (unknown) INR (0.9-1.3) (units unknown) (unknown) (unknown) (no date) (unknown) (unknown) INR 1.0 (0.9-1.3) (units unknown) (unknown) (unknown) (no date) (unknown) (unknown) Initial Vital Signs (units unknown) (unknown) (unknown) (no date) (unknown) (unknown) Initial Vital Signs: (units unknown) (unknown) (unknown) (no date) (unknown) (unknown) Interpretation: (units unknown) (unknown) (unknown) (no date) (unknown) (unknown) [address] [address] (units unknown) (unknown) (unknown) (no date) (unknown) (unknown) Godwin Cummings MD [Primary Care Provider] (units unknown) (unknown) (unknown) (no date) (unknown) (unknown) Lab Data (units unknown) (unknown) (unknown) (no date) (unknown) (unknown) Lab Results (units unknown) (unknown) (unknown) (no date) (unknown) (unknown) Labs: (units unknown) (unknown) (unknown) (no date) (unknown) (unknown) Last Admin: 08/22/22 18:43 Dose: 25 mg (units unknown) (unknown) (unknown) (no date) (unknown) (unknown) Last Admin: 08/22/22 18:43 Dose: Not Given (units unknown) (unknown) (unknown) (no date) (unknown) (unknown) Last Admin: 08/22/22 18:44 Dose: 1,000 mls/hr (units unknown) (unknown) (unknown) (no date) (unknown) (unknown) Left arm drift: No drift for full 10 sec (units unknown) (unknown) (unknown) (no date) (unknown) (unknown) Left leg drift: No drift for full 5 sec (units unknown) (unknown) (unknown) (no date) (unknown) (unknown) Level of Conciousnes s: Alert, keenly responsive (units unknown) (unknown) (unknown) (no date) (unknown) (unknown) Limb ataxia: Absent (units unknown) (unknown) (unknown) (no date) (unknown) (unknown) Lipase (23-300) U/L (units unknown) (unknown) (unknown) (no date) (unknown) (unknown) Lipase 54 (23-300) U/L (units unknown) (unknown) (unknown) (no date) (unknown) (unknown) Lipase Stat (units unknown) (unknown) (unknown) (no date) (unknown) (unknown) Lymph # (Auto) (3213-9158) /uL (units unknown) (unknown) (unknown) (no date) (unknown) (unknown) Lymph # (Auto) 3100 (7036-1349) /uL (units unknown) (unknown) (unknown) (no date) (unknown) (unknown) Lymph % (Auto) (25-4 0) % (units unknown) (unknown) (unknown) (no date) (unknown) (unknown) Lymph % (Auto) 32.3 (25-40) % (units unknown) (unknown) (unknown) (no date) (unknown) (unknown) [id number] (units unknown) (unknown) (unknown) (no date) (unknown) (unknown) MCH (26-34) PG (units unknown) (unknown) (unknown) (no date) (unknown) (unknown) MCH 30.5 (26-34) PG (units unknown) (unknown) (unknown) (no date) (unknown) (unknown) MCHC (30-36) % (units unknown) (unknown) (unknown) (no date) (unknown) (unknown) MCHC 33.9 (30-36) % (units unknown) (unknown) (unknown) (no date) (unknown) (unknown) MCV (80-100) fL (units unknown) (unknown) (unknown) (no date) (unknown) (unknown) MCV 89.8 (80-100) fL (units unknown) (unknown) (unknown) (no date) (unknown) (unknown) MDM - Dizziness (units unknown) (unknown) (unknown) (no date) (unknown) (unknown) Magnesium (1.6-2.3) mg/dL (units unknown) (unknown) (unknown) (no date) (unknown) (unknown) Magnesium 1.6 (1.6-2.3) mg/dL (units unknown) (unknown) (unknown) (no date) (unknown) (unknown) Magnesium Stat (units unknown) (unknown) (unknown) (no date) (unknown) (unknown) Meclizine HCl (Meclizine Hcl 12.5 Mg Tablet) 25 mg PO NOW ONE (units unknown) (unknown) (unknown) (no date) (unknown) (unknown) Medical History (units unknown) (unknown) (unknown) (no date) (unknown) (unknown) Medication Instructions Recorded Confirmed (units unknown) (unknown) (unknown) (no date) (unknown) (unknown) Medication Instructions Recorded (units unknown) (unknown) (unknown) (no date) (unknown) (unknown) Mode of arrival: EMS (units unknown) (unknown) (unknown) (no date) (unknown) (unknown) [place] # (Auto) (0-900 ) /uL (units unknown) (unknown) (unknown) (no date) (unknown) (unknown) [place] # (Auto) 700 (0-900) /uL (units unknown) (unknown) (unknown) (no date) (unknown) (unknown) [place] % (Auto) (3-14) % (units unknown) (unknown) (unknown) (no date) (unknown) (unknown) [place] % (Auto) 6.9 (3-14) % (units unknown) (unknown) (unknown) (no date) (unknown) (unknown) NEUROLOGICAL: Alert and oriented x4.Normal gait and speech. Cranial nerves II (units unknown) (unknown) (unknown) (no date) (unknown) (unknown) NIH Stroke Scale (units unknown) (unknown) (unknown) (no date) (unknown) (unknown) Neut # (Auto) (9842-1686) /uL (units unknown) (unknown) (unknown) (no date) (unknown) (unknown) Neut # (Auto) 5300 (4040-6498) /uL (units unknown) (unknown) (unknown) (no date) (unknown) (unknown) Neut % (Auto) (50-75 ) % (units unknown) (unknown) (unknown) (no date) (unknown) (unknown) Neut % (Auto) 55.9 (50-75) % (units unknown) (unknown) (unknown) (no date) (unknown) (unknown) No Action (units unknown) (unknown) (unknown) (no date) (unknown) (unknown) No Known Drug Allergies Allergy Verified 08/22/22 18:28 (units unknown) (unknown) (unknown) (no date) (unknown) (unknown) Normal sinus rhythm rate 69 NC interval 170 QRS [address] changes no T (units unknown) (unknown) (unknown) (no date) (unknown) (unknown) Open/close eyes, serena se hand: Performs both tasks correctly (units unknown) (unknown) (unknown) (no date) (unknown) (unknown) Ordered: (units unknown) (unknown) (unknown) (no date) (unknown) (unknown) Orders (units unknown) (unknown) (unknown) (no date) (unknown) (unknown) Oxygen Delivery Meth od Room Air (units unknown) (unknown) (unknown) (no date) (unknown) (unknown) Oxygen Delivery Method (units unknown) (unknown) (unknown) (no date) (unknown) (unknown) PT (10.1-12.7) SECONDS (units unknown) (unknown) (unknown) (no date) (unknown) (unknown) PT 11.8 (10.1-12.7) SECONDS (units unknown) (unknown) (unknown) (no date) (unknown) (unknown) PTT Partial Thromboplastin [place] Stat (units unknown) (unknown) (unknown) (no date) (unknown) (unknown) Patient History (units unknown) (unknown) (unknown) (no date) (unknown) (unknown) Patient is 87-year-o ld female history of insulin-dependent diabetes hypertension (units unknown) (unknown) (unknown) (no date) (unknown) (unknown) Patient: Genesis Mullins MR#: (units unknown) (unknown) (unknown) (no date) (unknown) (unknown) Plt Count (150-400) X103/uL (units unknown) (unknown) (unknown) (no date) (unknown) (unknown) Plt Count 257 (150-400) X103/uL (units unknown) (unknown) (unknown) (no date) (unknown) (unknown) Potassium (3.4-5.1) mmol/L (units unknown) (unknown) (unknown) (no date) (unknown) (unknown) Potassium 4.0 (3.4-5.1) mmol/L (units unknown) (unknown) (unknown) (no date) (unknown) (unknown) Prescriptions: (units unknown) (unknown) (unknown) (no date) (unknown) (unknown) Previous Rx's (units unknown) (unknown) (unknown) (no date) (unknown) (unknown) Prothrombin Time INR Stat (units unknown) (unknown) (unknown) (no date) (unknown) (unknown) Pulse Oximetry 97 (units unknown) (unknown) (unknown) (no date) (unknown) (unknown) Pulse Oximetry 98 08/22/22 18:24 (units unknown) (unknown) (unknown) (no date) (unknown) (unknown) Pulse Oximetry 98 98 98 (units unknown) (unknown) (unknown) (no date) (unknown) (unknown) Pulse Oximetry 98 (units unknown) (unknown) (unknown) (no date) (unknown) (unknown) Pulse Rate 64 (units unknown) (unknown) (unknown) (no date) (unknown) (unknown) Pulse Rate 65 (units unknown) (unknown) (unknown) (no date) (unknown) (unknown) Pulse Rate 70 18:24 (units unknown) (unknown) (unknown) (no date) (unknown) (unknown) Pulse Rate 71 70 64 (units unknown) (unknown) (unknown) (no date) (unknown) (unknown) RBC (4.0-5.2) X106/uL (units unknown) (unknown) (unknown) (no date) (unknown) (unknown) RBC 3.90 L (4.0-5.2) X106/uL (units unknown) (unknown) (unknown) (no date) (unknown) (unknown) RDW (11.6-14.8) % (units unknown) (unknown) (unknown) (no date) (unknown) (unknown) RDW 14.1 (11.6-14.8) % (units unknown) (unknown) (unknown) (no date) (unknown) (unknown) RESPIRATORY: Breath sounds equal bilaterally, no wheezes rales or rhonchi. (units unknown) (unknown) (unknown) (no date) (unknown) (unknown) ROS Unobtainable: Al l systems reviewed + are unremarkable except as noted in HPI (units unknown) (unknown) (unknown) (no date) (unknown) (unknown) Referrals: (units unknown) (unknown) (unknown) (no date) (unknown) (unknown) Related Data (units unknown) (unknown) (unknown) (no date) (unknown) (unknown) Respiratory Rate 11 L (units unknown) (unknown) (unknown) (no date) (unknown) (unknown) Respiratory Rate 16 08/22/22 18:24 (units unknown) (unknown) (unknown) (no date) (unknown) (unknown) Respiratory Rate 20 16 12 (units unknown) (unknown) (unknown) (no date) (unknown) (unknown) Respiratory Rate 31 H (units unknown) (unknown) (unknown) (no date) (unknown) (unknown) Review of Systems (units unknown) (unknown) (unknown) (no date) (unknown) (unknown) Right arm drift: No drift for full 10 sec (units unknown) (unknown) (unknown) (no date) (unknown) (unknown) Right leg drift: No drift for full 5 sec (units unknown) (unknown) (unknown) (no date) (unknown) (unknown) SARS-CoV-2 (PCR) (Negative) (units unknown) (unknown) (unknown) (no date) (unknown) (unknown) SARS-CoV-2 (PCR) Negative (Negative) (units unknown) (unknown) (unknown) (no date) (unknown) (unknown) SKIN: Warm, dry, no laceration, no petechiae, no rashes or lesions. (units unknown) (unknown) (unknown) (no date) (unknown) (unknown) Scores (units unknown) (unknown) (unknown) (no date) (unknown) (unknown) Sensory on face/arms/legs: Normal, no sensory loss (units unknown) (unknown) (unknown) (no date) (unknown) (unknown) Signed By: (units unknown) (unknown) (unknown) (no date) (unknown) (unknown) Smoking Status: Neve r smoker (units unknown) (unknown) (unknown) (no date) (unknown) (unknown) Social History (units unknown) (unknown) (unknown) (no date) (unknown) (unknown) Sodium (137-145) mmol/L (units unknown) (unknown) (unknown) (no date) (unknown) (unknown) Sodium 136 L (137-14 5) mmol/L (units unknown) (unknown) (unknown) (no date) (unknown) (unknown) Sodium Chloride (Normal Saline 0.9%) 1,000 mls @ 1,000 mls/hr IV BOLUS ONE (units unknown) (unknown) (unknown) (no date) (unknown) (unknown) Source: patient and EMS (units unknown) (unknown) (unknown) (no date) (unknown) (unknown) Stated Complaint: dizzy, nausea, vomitting (units unknown) (unknown) (unknown) (no date) (unknown) (unknown) Stop: 08/22/22 18:31 (units unknown) (unknown) (unknown) (no date) (unknown) (unknown) Stop: 08/22/22 18:37 (units unknown) (unknown) (unknown) (no date) (unknown) (unknown) Stop: 08/22/22 19:35 (units unknown) (unknown) (unknown) (no date) (unknown) (unknown) Substance Use Type: does not use (units unknown) (unknown) (unknown) (no date) (unknown) (unknown) Temperature 97.5 F L (units unknown) (unknown) (unknown) (no date) (unknown) (unknown) Temperature (units unknown) (unknown) (unknown) (no date) (unknown) (unknown) Time Seen by Provide r: 08/22/22 18:36 (units unknown) (unknown) (unknown) (no date) (unknown) (unknown) Total Bilirubin (0.2-1.3) mg/dL (units unknown) (unknown) (unknown) (no date) (unknown) (unknown) Total Bilirubin 0.7 (0.2-1.3) mg/dL (units unknown) (unknown) (unknown) (no date) (unknown) (unknown) Total Creatine Kinas e (30-135) U/L (units unknown) (unknown) (unknown) (no date) (unknown) (unknown) Total Creatine Kinas e 153 H (30-135) U/L (units unknown) (unknown) (unknown) (no date) (unknown) (unknown) Total NIH Stroke sca le score: 0 (units unknown) (unknown) (unknown) (no date) (unknown) (unknown) Total Protein (6.3-8.2) g/dL (units unknown) (unknown) (unknown) (no date) (unknown) (unknown) Total Protein 7.3 (6.3-8.2) g/dL (units unknown) (unknown) (unknown) (no date) (unknown) (unknown) Troponin + CK Cardia c Panel Stat (units unknown) (unknown) (unknown) (no date) (unknown) (unknown) Troponin I < 0.012 (0.01-0.034) ng/mL (units unknown) (unknown) (unknown) (no date) (unknown) (unknown) Troponin I (0.01-0.034) ng/mL (units unknown) (unknown) (unknown) (no date) (unknown) (unknown) Visual lin: No visual loss (units unknown) (unknown) (unknown) (no date) (unknown) (unknown) Vital Signs - 8 hr (units unknown) (unknown) (unknown) (no date) (unknown) (unknown) Vital Signs (units unknown) (unknown) (unknown) (no date) (unknown) (unknown) Vital signs: (units unknown) (unknown) (unknown) (no date) (unknown) (unknown) WBC (4.5-11.0) X103/uL (units unknown) (unknown) (unknown) (no date) (unknown) (unknown) WBC 9.5 (4.5-11.0) X103/uL (units unknown) (unknown) (unknown) (no date) (unknown) (unknown) XR chest 1V Stat (units unknown) (unknown) (unknown) (no date) (unknown) (unknown) [Embedded Image Not Available] (units unknown) (unknown) (unknown) (no date) (unknown) (unknown) about 1 hour now the y have completely resolved. No numbness tingling weakness (units unknown) (unknown) (unknown) (no date) (unknown) (unknown) acetaminophen 650 MG tablet extended release (units unknown) (unknown) (unknown) (no date) (unknown) (unknown) acetaminophen 650 mg 2 tab PO QDAYP PRN ##0 12/02/16 05/10/18 (units unknown) (unknown) (unknown) (no date) (unknown) (unknown) alcohol intake frequency: holidays/special occasions only (units unknown) (unknown) (unknown) (no date) (unknown) (unknown) and below (units unknown) (unknown) (unknown) (no date) (unknown) (unknown) bilaterally, no visu al changes, no facial droop (units unknown) (unknown) (unknown) (no date) (unknown) (unknown) celecoxib 200 mg capsule (Celebrex) 200 mg PO DAILY #30 caps 01/05/18 (units unknown) (unknown) (unknown) (no date) (unknown) (unknown) celecoxib [Celebrex] 200 mg capsule (units unknown) (unknown) (unknown) (no date) (unknown) (unknown) chest pain palpitations abdominal pain or other symptoms. No prior history of (units unknown) (unknown) (unknown) (no date) (unknown) (unknown) equal bilaterally, n o dysarthria or aphasia, sensation in tact to soft touch (units unknown) (unknown) (unknown) (no date) (unknown) (unknown) guarding or rebound. (units unknown) (unknown) (unknown) (no date) (unknown) (unknown) hydrochlorothiazide 12.5 MG capsule (units unknown) (unknown) (unknown) (no date) (unknown) (unknown) hydrochlorothiazide 12.5 mg capsule 12.5 mg PO SEE INSTRUCTIONS ##0 12/02/16 (units unknown) (unknown) (unknown) (no date) (unknown) (unknown) hydrocodone 5 mg-acetaminophen 325 1 tab PO Q4HP PRN #60 tabs 12/13/16 (units unknown) (unknown) (unknown) (no date) (unknown) (unknown) hydrocodone-acetamin op hen [[place]] 5 MG/325 MG tablet (units unknown) (unknown) (unknown) (no date) (unknown) (unknown) intact (units unknown) (unknown) (unknown) (no date) (unknown) (unknown) lisinopril 10 MG tablet (units unknown) (unknown) (unknown) (no date) (unknown) (unknown) lisinopril 10 mg tablet 10 mg PO BID ##0 12/02/16 05/10/18 (units unknown) (unknown) (unknown) (no date) (unknown) (unknown) metformin 500 mg tablet,extended 500 mg PO BID ##0 12/02/16 05/10/18 (units unknown) (unknown) (unknown) (no date) (unknown) (unknown) metformin [Glucophag e XR] 500 MG tablet extended release 24 hr (units unknown) (unknown) (unknown) (no date) (unknown) (unknown) mg tablet ([place]) (units unknown) (unknown) (unknown) (no date) (unknown) (unknown) moist mucous membranes (units unknown) (unknown) (unknown) (no date) (unknown) (unknown) omega 1-zpr-hob-fish oil 1,000 mg 1,200 mg PO QDAY ##0 12/02/16 05/10/18 (units unknown) (unknown) (unknown) (no date) (unknown) (unknown) omega 9-qwr-zks-fish oil [Fish Oil] 1,000 MG capsule (units unknown) (unknown) (unknown) (no date) (unknown) (unknown) omeprazole 20 MG capsule,delayed release(DR/EC) (units unknown) (unknown) (unknown) (no date) (unknown) (unknown) omeprazole 20 mg capsule,delayed 20 mg PO QDAY ##0 12/02/16 05/10/18 (units unknown) (unknown) (unknown) (no date) (unknown) (unknown) presenting today wit h sudden onset dizziness. She reports that she just got her (units unknown) (unknown) (unknown) (no date) (unknown) (unknown) release 24 hr (Glucophage XR) (units unknown) (unknown) (unknown) (no date) (unknown) (unknown) release (units unknown) (unknown) (unknown) (no date) (unknown) (unknown) simvastatin 20 MG tablet (units unknown) (unknown) (unknown) (no date) (unknown) (unknown) simvastatin 20 mg tablet 20 mg PO HS ##0 12/02/16 05/10/18 (units unknown) (unknown) (unknown) (no date) (unknown) (unknown) tablet,extended release (units unknown) (unknown) (unknown) (no date) (unknown) (unknown) talk about she was sitting at home she felt extremely dizzy unable to stand and (units unknown) (unknown) (unknown) (no date) (unknown) (unknown) through XII grossly intact. Good remzsx-tu-hkve, good exki-ck-livn, strength (units unknown) (unknown) (unknown) (no date) (unknown) (unknown) vertigo. Overall feeling significantly better. (units unknown) (unknown) (unknown) (no date) (unknown) (unknown) walk the room was spinning she got nauseous and vomiting. Symptoms lasted for (units unknown) (unknown) (unknown) (no date) (unknown) (unknown) wave inversions (units unknown) (unknown) Result panel 104 (unknown) (no date) (unknown) (unknown) (no value) (units unknown) (unknown) (unknown) (no date) (unknown) (unknown) <Electronically sign ed by Gabriella Funez D.O.> (units unknown) (unknown) (unknown) (no date) (unknown) (unknown) (120 mg-180 mg) capsule (Fish Oil) (units unknown) (unknown) (unknown) (no date) (unknown) (unknown) *Continue to take medications as directed (units unknown) (unknown) (unknown) (no date) (unknown) (unknown) *Follow up with your primary care provider in 2-3 days or call [phone] (units unknown) (unknown) (unknown) (no date) (unknown) (unknown) *Return to ER if you should have increasing dizziness weakness numbness tingling (units unknown) (unknown) (unknown) (no date) (unknown) (unknown) *What to do: At this time you likely had a vertigo episode. Please see (units unknown) (unknown) (unknown) (no date) (unknown) (unknown) *You have been diagnosed with vertigo (units unknown) (unknown) (unknown) (no date) (unknown) (unknown) -you were given lisinopril 20 mg tonight in the ER do not take her (units unknown) (unknown) (unknown) (no date) (unknown) (unknown) 05/10/18 (units unknown) (unknown) (unknown) (no date) (unknown) (unknown) 08/22/22 08/22/22 08/22/22 Range/Units (units unknown) (unknown) (unknown) (no date) (unknown) (unknown) 08/22/22 18:24 (units unknown) (unknown) (unknown) (no date) (unknown) (unknown) 08/22/22 Range/Units (units unknown) (unknown) (unknown) (no date) (unknown) (unknown) 08/22/22 (units unknown) (unknown) (unknown) (no date) (unknown) (unknown) 08/23/22 0518 (units unknown) (unknown) (unknown) (no date) (unknown) (unknown) 1 tab PO Q4HP PRNQty : 60 0RF (units unknown) (unknown) (unknown) (no date) (unknown) (unknown) 1,200 mg PO QDAY Qty : 0 (units unknown) (unknown) (unknown) (no date) (unknown) (unknown) 1. No acute intracranial abnormality. (units unknown) (unknown) (unknown) (no date) (unknown) (unknown) 10 mg PO BID Qty: 0 (units unknown) (unknown) (unknown) (no date) (unknown) (unknown) 12.5 mg PO SEE INSTRUCTIONS Qty: 0 (units unknown) (unknown) (unknown) (no date) (unknown) (unknown) 18:24 18:24 18:24 (units unknown) (unknown) (unknown) (no date) (unknown) (unknown) 18:45 (units unknown) (unknown) (unknown) (no date) (unknown) (unknown) 2 tab PO QDAYP PRNQt y: 0 (units unknown) (unknown) (unknown) (no date) (unknown) (unknown) 2. Mild chronic whit e matter small vessel ischemic changes and cerebral volume (units unknown) (unknown) (unknown) (no date) (unknown) (unknown) 20 mg PO HS Qty: 0 (units unknown) (unknown) (unknown) (no date) (unknown) (unknown) 20 mg PO QDAY Qty: 0 (units unknown) (unknown) (unknown) (no date) (unknown) (unknown) 200 mg PO DAILY Qty: 30 2RF (units unknown) (unknown) (unknown) (no date) (unknown) (unknown) 22:03 (units unknown) (unknown) (unknown) (no date) (unknown) (unknown) 3. No high-grade stenosis or occlusion of the central intracranial arteries. (units unknown) (unknown) (unknown) (no date) (unknown) (unknown) 4. No high-grade stenosis or occlusion of the head and neck arteries.? (units unknown) (unknown) (unknown) (no date) (unknown) (unknown) 500 mg PO BID Qty: 0 (units unknown) (unknown) (unknown) (no date) (unknown) (unknown) ? (units unknown) (unknown) (unknown) (no date) (unknown) (unknown) ABDOMEN: Soft, nontender. Normoactive bowel sounds all 4 quadrants. No (units unknown) (unknown) (unknown) (no date) (unknown) (unknown) ALT (<35) IU/L (units unknown) (unknown) (unknown) (no date) (unknown) (unknown) ALT 17 (<35) IU/L (units unknown) (unknown) (unknown) (no date) (unknown) (unknown) APTT (26-36) SECONDS (units unknown) (unknown) (unknown) (no date) (unknown) (unknown) APTT 26 (26-36) SECONDS (units unknown) (unknown) (unknown) (no date) (unknown) (unknown) AST (14-36) IU/L (units unknown) (unknown) (unknown) (no date) (unknown) (unknown) AST 23 (14-36) IU/L (units unknown) (unknown) (unknown) (no date) (unknown) (unknown) Activity Restrictions/Additiona l Instructions: (units unknown) (unknown) (unknown) (no date) (unknown) (unknown) Admin: 08/22/22 18:4 4 Dose: 1,000 mls/hr (units unknown) (unknown) (unknown) (no date) (unknown) (unknown) Age/Sex: 87 / F (units unknown) (unknown) (unknown) (no date) (unknown) (unknown) Albumin (3.5-5.0) g/dL (units unknown) (unknown) (unknown) (no date) (unknown) (unknown) Albumin 4.2 (3.5-5.0 ) g/dL (units unknown) (unknown) (unknown) (no date) (unknown) (unknown) Albumin/Globulin Rat io (1.0-2.8) (units unknown) (unknown) (unknown) (no date) (unknown) (unknown) Albumin/Globulin Rat io 1.4 (1.0-2.8) (units unknown) (unknown) (unknown) (no date) (unknown) (unknown) Alkaline Phosphatase (38-126) U/L (units unknown) (unknown) (unknown) (no date) (unknown) (unknown) Alkaline Phosphatase 58 (38-126) U/L (units unknown) (unknown) (unknown) (no date) (unknown) (unknown) Allergies (units unknown) (unknown) (unknown) (no date) (unknown) (unknown) Allergy/AdvReac Type Severity Reaction Status Date / Time (units unknown) (unknown) (unknown) (no date) (unknown) (unknown) Anterior circulation :? Intracranial internal carotid arteries are normal in size (units unknown) (unknown) (unknown) (no date) (unknown) (unknown) Any quantitative measurements of stenosis were performed using NASCET criteria.? (units unknown) (unknown) (unknown) (no date) (unknown) (unknown) Approved by: Pablo Harley M.D. on 08/22/2022 at 21:09 ? (units unknown) (unknown) (unknown) (no date) (unknown) (unknown) Ask month/age: Answe rs both questions correctly. (units unknown) (unknown) (unknown) (no date) (unknown) (unknown) Aspirin (Aspirin 81 Mg Chew Tab) 324 mg PO NOW ONE (units unknown) (unknown) (unknown) (no date) (unknown) (unknown) BRAIN:? (units unknown) (unknown) (unknown) (no date) (unknown) (unknown) BUN (7-17) mg/dL (units unknown) (unknown) (unknown) (no date) (unknown) (unknown) BUN 21 H (7-17) mg/dL (units unknown) (unknown) (unknown) (no date) (unknown) (unknown) BUN/Creatinine Ratio (6-22) (units unknown) (unknown) (unknown) (no date) (unknown) (unknown) BUN/Creatinine Ratio 23.6 H (6-22) (units unknown) (unknown) (unknown) (no date) (unknown) (unknown) Baso # (Auto) (0-100 ) /uL (units unknown) (unknown) (unknown) (no date) (unknown) (unknown) Baso # (Auto) 100 (0-100) /uL (units unknown) (unknown) (unknown) (no date) (unknown) (unknown) Baso % (Auto) (0-2) % (units unknown) (unknown) (unknown) (no date) (unknown) (unknown) Baso % (Auto) 1.4 (0-2) % (units unknown) (unknown) (unknown) (no date) (unknown) (unknown) Best gaze horizontal : Normal (units unknown) (unknown) (unknown) (no date) (unknown) (unknown) Best language: No aphasia, normal (units unknown) (unknown) (unknown) (no date) (unknown) (unknown) Blood Pressure 172/8 7 H (units unknown) (unknown) (unknown) (no date) (unknown) (unknown) Blood work is overal l reassuring. She has no leukocytosis or anemia, (units unknown) (unknown) (unknown) (no date) (unknown) (unknown) Bones:? No suspiciou s bony lesions.? Visualized cervical spine demonstrates (units unknown) (unknown) (unknown) (no date) (unknown) (unknown) Brain:? No intracranial hemorrhage, mass, or mass effect.? There are (units unknown) (unknown) (unknown) (no date) (unknown) (unknown) CARDIOVASCULAR: Regular rate and rhythm without murmurs, rubs or gallops. (units unknown) (unknown) (unknown) (no date) (unknown) (unknown) CK-MB (CK-2) (<2.37) ng/mL (units unknown) (unknown) (unknown) (no date) (unknown) (unknown) CK-MB (CK-2) 1.72 (<2.37) ng/mL (units unknown) (unknown) (unknown) (no date) (unknown) (unknown) CK-MB (CK-2) Rel Ind ex (1.5-5.0) % (units unknown) (unknown) (unknown) (no date) (unknown) (unknown) CK-MB (CK-2) Rel Ind ex 1.1 L (1.5-5.0) % (units unknown) (unknown) (unknown) (no date) (unknown) (unknown) COMPARISON:? [facility], CT, CT ANGIO HEAD AND NECK, 01/21/2021, 17:19. (units unknown) (unknown) (unknown) (no date) (unknown) (unknown) CSF spaces:? Basal cisterns are patent.? No extra-axial fluid collections.? (units unknown) (unknown) (unknown) (no date) (unknown) (unknown) CTA - brain/neck: (units unknown) (unknown) (unknown) (no date) (unknown) (unknown) Calcium (8.4-10.2) mg/dL (units unknown) (unknown) (unknown) (no date) (unknown) (unknown) Calcium 8.8 (8.4-10. 2) mg/dL (units unknown) (unknown) (unknown) (no date) (unknown) (unknown) Carbon Dioxide (22-3 2) mmol/L (units unknown) (unknown) (unknown) (no date) (unknown) (unknown) Carbon Dioxide 24 (22-32) mmol/L (units unknown) (unknown) (unknown) (no date) (unknown) (unknown) Carotid system:? The great vessels demonstrate a conventional anatomy as they (units unknown) (unknown) (unknown) (no date) (unknown) (unknown) Chief Complaint: Dizziness (units unknown) (unknown) (unknown) (no date) (unknown) (unknown) Chloride (98-107) mmol/L (units unknown) (unknown) (unknown) (no date) (unknown) (unknown) Chloride 101 (98-107 ) mmol/L (units unknown) (unknown) (unknown) (no date) (unknown) (unknown) Chronic kidney disease, stage 3 (units unknown) (unknown) (unknown) (no date) (unknown) (unknown) Clinical Impression: (units unknown) (unknown) (unknown) (no date) (unknown) (unknown) Course (units unknown) (unknown) (unknown) (no date) (unknown) (unknown) Creatinine (0.52-1.0 4) mg/dL (units unknown) (unknown) (unknown) (no date) (unknown) (unknown) Creatinine 0.89 (0.52-1.04) mg/dL (units unknown) (unknown) (unknown) (no date) (unknown) (unknown) : 1935 Acct:[id number] (units unknown) (unknown) (unknown) (no date) (unknown) (unknown) Date of Service: 08/22/22 (units unknown) (unknown) (unknown) (no date) (unknown) (unknown) Departure (units unknown) (unknown) (unknown) (no date) (unknown) (unknown) Diabetes type 2, controlled (units unknown) (unknown) (unknown) (no date) (unknown) (unknown) Dictated by: Pablo Harley M.D. on 08/22/2022 at 21:01 ? ? (units unknown) (unknown) (unknown) (no date) (unknown) (unknown) Discharge Plan (units unknown) (unknown) (unknown) (no date) (unknown) (unknown) Discontinued Medications (units unknown) (unknown) (unknown) (no date) (unknown) (unknown) Documented By: (units unknown) (unknown) (unknown) (no date) (unknown) (unknown) Documented By: KM (units unknown) (unknown) (unknown) (no date) (unknown) (unknown) Documented By: RL (units unknown) (unknown) (unknown) (no date) (unknown) (unknown) Dysarthria: Normal (units unknown) (unknown) (unknown) (no date) (unknown) (unknown) ECG Data (units unknown) (unknown) (unknown) (no date) (unknown) (unknown) ER Physician: Gabriella Funez D.O. (units unknown) (unknown) (unknown) (no date) (unknown) (unknown) EXTREMITIES: Normal range of motion, no clubbing or edema. Neurovascularly (units unknown) (unknown) (unknown) (no date) (unknown) (unknown) Emergency Report (units unknown) (unknown) (unknown) (no date) (unknown) (unknown) Eos # (Auto) (0-450) /uL (units unknown) (unknown) (unknown) (no date) (unknown) (unknown) Eos # (Auto) 300 (0-450) /uL (units unknown) (unknown) (unknown) (no date) (unknown) (unknown) Eos % (Auto) (2-4) % (units unknown) (unknown) (unknown) (no date) (unknown) (unknown) Eos % (Auto) 3.5 (2- 4) % (units unknown) (unknown) (unknown) (no date) (unknown) (unknown) Estimated GFR > 60 (>60) mL/min (units unknown) (unknown) (unknown) (no date) (unknown) (unknown) Estimated GFR (>60) mL/min (units unknown) (unknown) (unknown) (no date) (unknown) (unknown) Exam (units unknown) (unknown) (unknown) (no date) (unknown) (unknown) Extinction or inattention: No abnormality (units unknown) (unknown) (unknown) (no date) (unknown) (unknown) FINDINGS:? (units unknown) (unknown) (unknown) (no date) (unknown) (unknown) Facial palsy: Normal symetrical movement (units unknown) (unknown) (unknown) (no date) (unknown) (unknown) GENERAL: Alert well-appearing 87 year old female no acute distress (units unknown) (unknown) (unknown) (no date) (unknown) (unknown) GERD (gastroesophage al reflux disease) (units unknown) (unknown) (unknown) (no date) (unknown) (unknown) General (units unknown) (unknown) (unknown) (no date) (unknown) (unknown) Globulin (1.7-4.1) g/dL (units unknown) (unknown) (unknown) (no date) (unknown) (unknown) Globulin 3.1 (1.7-4. 1) g/dL (units unknown) (unknown) (unknown) (no date) (unknown) (unknown) Glucose (80-110) mg/dL (units unknown) (unknown) (unknown) (no date) (unknown) (unknown) Glucose 159 H (80-11 0) mg/dL (units unknown) (unknown) (unknown) (no date) (unknown) (unknown) HEAD CT ANGIOGRAPHY:? (units unknown) (unknown) (unknown) (no date) (unknown) (unknown) HEENT: Head atraumatic,EOMI, pupils reactive, no nystagmus, face symmetric, (units unknown) (unknown) (unknown) (no date) (unknown) (unknown) HPI - Dizziness (units unknown) (unknown) (unknown) (no date) (unknown) (unknown) HPI Narrative: (units unknown) (unknown) (unknown) (no date) (unknown) (unknown) Hct (36-46) % (units unknown) (unknown) (unknown) (no date) (unknown) (unknown) Hct 35.0 L (36-46) % (units unknown) (unknown) (unknown) (no date) (unknown) (unknown) Hgb (12.0-16.0) g/dL (units unknown) (unknown) (unknown) (no date) (unknown) (unknown) Hgb 11.9 L (12.0-16. 0) g/dL (units unknown) (unknown) (unknown) (no date) (unknown) (unknown) History of Present Illness (units unknown) (unknown) (unknown) (no date) (unknown) (unknown) Home Medications (units unknown) (unknown) (unknown) (no date) (unknown) (unknown) Hyperlipidemia (units unknown) (unknown) (unknown) (no date) (unknown) (unknown) Hypertension (units unknown) (unknown) (unknown) (no date) (unknown) (unknown) IMPRESSION:? (units unknown) (unknown) (unknown) (no date) (unknown) (unknown) INDICATIONS:? dizzy vomiting (units unknown) (unknown) (unknown) (no date) (unknown) (unknown) INR (0.9-1.3) (units unknown) (unknown) (unknown) (no date) (unknown) (unknown) INR 1.0 (0.9-1.3) (units unknown) (unknown) (unknown) (no date) (unknown) (unknown) Image quality:? Ther e is metallic streak artifact from patient's dental (units unknown) (unknown) (unknown) (no date) (unknown) (unknown) Imaging Data (units unknown) (unknown) (unknown) (no date) (unknown) (unknown) Initial Vital Signs (units unknown) (unknown) (unknown) (no date) (unknown) (unknown) Initial Vital Signs: (units unknown) (unknown) (unknown) (no date) (unknown) (unknown) Instructions: DI for Vertigo (units unknown) (unknown) (unknown) (no date) (unknown) (unknown) Interpretation: (units unknown) (unknown) (unknown) (no date) (unknown) (unknown) [address] [address] (units unknown) (unknown) (unknown) (no date) (unknown) (unknown) Godwin Cummings MD [Primary Care Provider] (units unknown) (unknown) (unknown) (no date) (unknown) (unknown) Lab Data (units unknown) (unknown) (unknown) (no date) (unknown) (unknown) Lab Results (units unknown) (unknown) (unknown) (no date) (unknown) (unknown) Labs: (units unknown) (unknown) (unknown) (no date) (unknown) (unknown) Last Admin: 08/22/22 18:43 Dose: 25 mg (units unknown) (unknown) (unknown) (no date) (unknown) (unknown) Last Admin: 08/22/22 18:43 Dose: Not Given (units unknown) (unknown) (unknown) (no date) (unknown) (unknown) Last Admin: 08/22/22 20:21 Dose: 20 mg (units unknown) (unknown) (unknown) (no date) (unknown) (unknown) Last Infusion: 08/22/22 21:27 Dose: 0 mls/hr (units unknown) (unknown) (unknown) (no date) (unknown) (unknown) Left arm drift: No drift for full 10 sec (units unknown) (unknown) (unknown) (no date) (unknown) (unknown) Left leg drift: No drift for full 5 sec (units unknown) (unknown) (unknown) (no date) (unknown) (unknown) Level of Conciousnes s: Alert, keenly responsive (units unknown) (unknown) (unknown) (no date) (unknown) (unknown) Limb ataxia: Absent (units unknown) (unknown) (unknown) (no date) (unknown) (unknown) Lipase (23-300) U/L (units unknown) (unknown) (unknown) (no date) (unknown) (unknown) Lipase 54 (23-300) U/L (units unknown) (unknown) (unknown) (no date) (unknown) (unknown) Lisinopril (Lisinopr il 20 Mg Tablet) 20 mg PO NOW ONE (units unknown) (unknown) (unknown) (no date) (unknown) (unknown) Lymph # (Auto) ([phone]) /uL (units unknown) (unknown) (unknown) (no date) (unknown) (unknown) Lymph # (Auto) 3100 ([phone]) /uL (units unknown) (unknown) (unknown) (no date) (unknown) (unknown) Lymph % (Auto) (25-4 0) % (units unknown) (unknown) (unknown) (no date) (unknown) (unknown) Lymph % (Auto) 32.3 (25-40) % (units unknown) (unknown) (unknown) (no date) (unknown) (unknown) [id number] (units unknown) (unknown) (unknown) (no date) (unknown) (unknown) MCH (26-34) PG (units unknown) (unknown) (unknown) (no date) (unknown) (unknown) MCH 30.5 (26-34) PG (units unknown) (unknown) (unknown) (no date) (unknown) (unknown) MCHC (30-36) % (units unknown) (unknown) (unknown) (no date) (unknown) (unknown) MCHC 33.9 (30-36) % (units unknown) (unknown) (unknown) (no date) (unknown) (unknown) MCV (80-100) fL (units unknown) (unknown) (unknown) (no date) (unknown) (unknown) MCV 89.8 (80-100) fL (units unknown) (unknown) (unknown) (no date) (unknown) (unknown) MDM - Dizziness (units unknown) (unknown) (unknown) (no date) (unknown) (unknown) MDM Narrative (units unknown) (unknown) (unknown) (no date) (unknown) (unknown) Magnesium (1.6-2.3) mg/dL (units unknown) (unknown) (unknown) (no date) (unknown) (unknown) Magnesium 1.6 (1.6-2.3) mg/dL (units unknown) (unknown) (unknown) (no date) (unknown) (unknown) Mastoid air cells ar e clear. (units unknown) (unknown) (unknown) (no date) (unknown) (unknown) Meclizine HCl (Meclizine Hcl 12.5 Mg Tablet) 25 mg PO NOW ONE (units unknown) (unknown) (unknown) (no date) (unknown) (unknown) Medical History (units unknown) (unknown) (unknown) (no date) (unknown) (unknown) Medical decision making narrative: (units unknown) (unknown) (unknown) (no date) (unknown) (unknown) Medication Instructions Recorded Confirmed (units unknown) (unknown) (unknown) (no date) (unknown) (unknown) Medication Instructions Recorded (units unknown) (unknown) (unknown) (no date) (unknown) (unknown) Mode of arrival: EMS (units unknown) (unknown) (unknown) (no date) (unknown) (unknown) [place] # (Auto) (0-900 ) /uL (units unknown) (unknown) (unknown) (no date) (unknown) (unknown) [place] # (Auto) 700 (0-900) /uL (units unknown) (unknown) (unknown) (no date) (unknown) (unknown) [place] % (Auto) (3-14) % (units unknown) (unknown) (unknown) (no date) (unknown) (unknown) [place] % (Auto) 6.9 (3-14) % (units unknown) (unknown) (unknown) (no date) (unknown) (unknown) NECK CT ANGIOGRAPHY:? (units unknown) (unknown) (unknown) (no date) (unknown) (unknown) NEUROLOGICAL: Alert and oriented x4.Normal gait and speech. Cranial nerves II (units unknown) (unknown) (unknown) (no date) (unknown) (unknown) NIH Stroke Scale (units unknown) (unknown) (unknown) (no date) (unknown) (unknown) Neut # (Auto) (8398-5971) /uL (units unknown) (unknown) (unknown) (no date) (unknown) (unknown) Neut # (Auto) 5300 (7105-9125) /uL (units unknown) (unknown) (unknown) (no date) (unknown) (unknown) Neut % (Auto) (50-75 ) % (units unknown) (unknown) (unknown) (no date) (unknown) (unknown) Neut % (Auto) 55.9 (50-75) % (units unknown) (unknown) (unknown) (no date) (unknown) (unknown) No Action (units unknown) (unknown) (unknown) (no date) (unknown) (unknown) No Known Drug Allergies Allergy Verified 08/22/22 18:28 (units unknown) (unknown) (unknown) (no date) (unknown) (unknown) Normal sinus rhythm rate 69 NC interval 170 QRS [address] changes no T (units unknown) (unknown) (unknown) (no date) (unknown) (unknown) Open/close eyes, serena se hand: Performs both tasks correctly (units unknown) (unknown) (unknown) (no date) (unknown) (unknown) Orbits appear normal.? (units unknown) (unknown) (unknown) (no date) (unknown) (unknown) Ordered: (units unknown) (unknown) (unknown) (no date) (unknown) (unknown) Orders (units unknown) (unknown) (unknown) (no date) (unknown) (unknown) Oxygen Delivery Meth od Room Air (units unknown) (unknown) (unknown) (no date) (unknown) (unknown) PROCEDURE:? CT ANGIO HEAD AND NECK (units unknown) (unknown) (unknown) (no date) (unknown) (unknown) PT (10.1-12.7) SECONDS (units unknown) (unknown) (unknown) (no date) (unknown) (unknown) PT 11.8 (10.1-12.7) SECONDS (units unknown) (unknown) (unknown) (no date) (unknown) (unknown) Patient Disposition: Home (units unknown) (unknown) (unknown) (no date) (unknown) (unknown) Patient History (units unknown) (unknown) (unknown) (no date) (unknown) (unknown) Patient is 79-year-o ld female who presents with sudden episode of dizziness (units unknown) (unknown) (unknown) (no date) (unknown) (unknown) Patient is 87-year-o ld female history of insulin-dependent diabetes hypertension (units unknown) (unknown) (unknown) (no date) (unknown) (unknown) Patient: JameGenesis benavidez Sally MR#: (units unknown) (unknown) (unknown) (no date) (unknown) (unknown) Plt Count (150-400) X103/uL (units unknown) (unknown) (unknown) (no date) (unknown) (unknown) Plt Count 257 (150-400) X103/uL (units unknown) (unknown) (unknown) (no date) (unknown) (unknown) Posterior circulation:? The origins of the vertebral arteries both appear (units unknown) (unknown) (unknown) (no date) (unknown) (unknown) Posterior circulation:? Visualized portions of the vertebral arteries (units unknown) (unknown) (unknown) (no date) (unknown) (unknown) Potassium (3.4-5.1) mmol/L (units unknown) (unknown) (unknown) (no date) (unknown) (unknown) Potassium 4.0 (3.4-5.1) mmol/L (units unknown) (unknown) (unknown) (no date) (unknown) (unknown) Pre-contrast 4.5 mm thick sections acquired from the foramen magnum to the (units unknown) (unknown) (unknown) (no date) (unknown) (unknown) Prescriptions: (units unknown) (unknown) (unknown) (no date) (unknown) (unknown) Previous Rx's (units unknown) (unknown) (unknown) (no date) (unknown) (unknown) Pulse Oximetry 97 (units unknown) (unknown) (unknown) (no date) (unknown) (unknown) Pulse Oximetry 98 08/22/22 18:24 (units unknown) (unknown) (unknown) (no date) (unknown) (unknown) Pulse Rate 68 (units unknown) (unknown) (unknown) (no date) (unknown) (unknown) Pulse Rate 70 18:24 (units unknown) (unknown) (unknown) (no date) (unknown) (unknown) RBC (4.0-5.2) X106/uL (units unknown) (unknown) (unknown) (no date) (unknown) (unknown) RBC 3.90 L (4.0-5.2) X106/uL (units unknown) (unknown) (unknown) (no date) (unknown) (unknown) RDW (11.6-14.8) % (units unknown) (unknown) (unknown) (no date) (unknown) (unknown) RDW 14.1 (11.6-14.8) % (units unknown) (unknown) (unknown) (no date) (unknown) (unknown) RESPIRATORY: Breath sounds equal bilaterally, no wheezes rales or rhonchi. (units unknown) (unknown) (unknown) (no date) (unknown) (unknown) ROS Unobtainable: Al l systems reviewed + are unremarkable except as noted in HPI (units unknown) (unknown) (unknown) (no date) (unknown) (unknown) Radiologist's Impression: (units unknown) (unknown) (unknown) (no date) (unknown) (unknown) Referrals: (units unknown) (unknown) (unknown) (no date) (unknown) (unknown) Related Data (units unknown) (unknown) (unknown) (no date) (unknown) (unknown) Respiratory Rate 16 08/22/22 18:24 (units unknown) (unknown) (unknown) (no date) (unknown) (unknown) Respiratory Rate 18 (units unknown) (unknown) (unknown) (no date) (unknown) (unknown) Review of Systems (units unknown) (unknown) (unknown) (no date) (unknown) (unknown) Right arm drift: No drift for full 10 sec (units unknown) (unknown) (unknown) (no date) (unknown) (unknown) Right leg drift: No drift for full 5 sec (units unknown) (unknown) (unknown) (no date) (unknown) (unknown) SARS-CoV-2 (PCR) (Negative) (units unknown) (unknown) (unknown) (no date) (unknown) (unknown) SARS-CoV-2 (PCR) Negative (Negative) (units unknown) (unknown) (unknown) (no date) (unknown) (unknown) SKIN: Warm, dry, no laceration, no petechiae, no rashes or lesions. (units unknown) (unknown) (unknown) (no date) (unknown) (unknown) Scores (units unknown) (unknown) (unknown) (no date) (unknown) (unknown) Sensory on face/arms/legs: Normal, no sensory loss (units unknown) (unknown) (unknown) (no date) (unknown) (unknown) Signed By: (units unknown) (unknown) (unknown) (no date) (unknown) (unknown) Sinuses:? There is mild mucosal thickening within the ethmoid and maxillary (units unknown) (unknown) (unknown) (no date) (unknown) (unknown) Skull and face:? Calvarium and facial bones appear intact, without suspicious (units unknown) (unknown) (unknown) (no date) (unknown) (unknown) Smoking Status: [place] smoker (units unknown) (unknown) (unknown) (no date) (unknown) (unknown) Social History (units unknown) (unknown) (unknown) (no date) (unknown) (unknown) Sodium (137-145) mmol/L (units unknown) (unknown) (unknown) (no date) (unknown) (unknown) Sodium 136 L (137-14 5) mmol/L (units unknown) (unknown) (unknown) (no date) (unknown) (unknown) Sodium Chloride (Normal Saline 0.9%) 1,000 mls @ 1,000 mls/hr IV BOLUS ONE (units unknown) (unknown) (unknown) (no date) (unknown) (unknown) Soft tissues:? Visualized neck soft tissues demonstrate asymmetric enlargement (units unknown) (unknown) (unknown) (no date) (unknown) (unknown) Source: patient and EMS (units unknown) (unknown) (unknown) (no date) (unknown) (unknown) Stand Alone Forms: Patient Portal/API (units unknown) (unknown) (unknown) (no date) (unknown) (unknown) Stated Complaint: dizzy, nausea, vomitting (units unknown) (unknown) (unknown) (no date) (unknown) (unknown) Stop: 08/22/22 18:31 (units unknown) (unknown) (unknown) (no date) (unknown) (unknown) Stop: 08/22/22 18:37 (units unknown) (unknown) (unknown) (no date) (unknown) (unknown) Stop: 08/22/22 19:35 (units unknown) (unknown) (unknown) (no date) (unknown) (unknown) Stop: 08/22/22 19:53 (units unknown) (unknown) (unknown) (no date) (unknown) (unknown) Substance Use Type: does not use (units unknown) (unknown) (unknown) (no date) (unknown) (unknown) TECHNIQUE:? (units unknown) (unknown) (unknown) (no date) (unknown) (unknown) There is mild (units unknown) (unknown) (unknown) (no date) (unknown) (unknown) Time Seen by Provide r: 08/22/22 18:36 (units unknown) (unknown) (unknown) (no date) (unknown) (unknown) Total Bilirubin (0.2-1.3) mg/dL (units unknown) (unknown) (unknown) (no date) (unknown) (unknown) Total Bilirubin 0.7 (0.2-1.3) mg/dL (units unknown) (unknown) (unknown) (no date) (unknown) (unknown) Total Creatine Kin[place] e (30-135) U/L (units unknown) (unknown) (unknown) (no date) (unknown) (unknown) Total Creatine Kinas e 153 H (30-135) U/L (units unknown) (unknown) (unknown) (no date) (unknown) (unknown) Total NIH Stroke sca le score: 0 (units unknown) (unknown) (unknown) (no date) (unknown) (unknown) Total Protein (6.3-8.2) g/dL (units unknown) (unknown) (unknown) (no date) (unknown) (unknown) Total Protein 7.3 (6.3-8.2) g/dL (units unknown) (unknown) (unknown) (no date) (unknown) (unknown) Troponin I < 0.012 (0.01-0.034) ng/mL (units unknown) (unknown) (unknown) (no date) (unknown) (unknown) Troponin I (0.01-0.034) ng/mL (units unknown) (unknown) (unknown) (no date) (unknown) (unknown) Vertigo (units unknown) (unknown) (unknown) (no date) (unknown) (unknown) Visual lin: No visual loss (units unknown) (unknown) (unknown) (no date) (unknown) (unknown) Vital Signs - 8 hr (units unknown) (unknown) (unknown) (no date) (unknown) (unknown) Vital Signs (units unknown) (unknown) (unknown) (no date) (unknown) (unknown) Vital signs: (units unknown) (unknown) (unknown) (no date) (unknown) (unknown) WBC (4.5-11.0) X103/uL (units unknown) (unknown) (unknown) (no date) (unknown) (unknown) WBC 9.5 (4.5-11.0) X103/uL (units unknown) (unknown) (unknown) (no date) (unknown) (unknown) [Embedded Image Not Available] (units unknown) (unknown) (unknown) (no date) (unknown) (unknown) abnormal (units unknown) (unknown) (unknown) (no date) (unknown) (unknown) about 1 hour now the y have completely resolved. No numbness tingling weakness (units unknown) (unknown) (unknown) (no date) (unknown) (unknown) acetaminophen 650 MG tablet extended release (units unknown) (unknown) (unknown) (no date) (unknown) (unknown) acetaminophen 650 mg 2 tab PO QDAYP PRN ##0 12/02/16 05/10/18 (units unknown) (unknown) (unknown) (no date) (unknown) (unknown) acquired (units unknown) (unknown) (unknown) (no date) (unknown) (unknown) after eating taco lozada. She has no numbness tingling weakness or focal (units unknown) (unknown) (unknown) (no date) (unknown) (unknown) alcohol intake frequency: holidays/special occasions only (units unknown) (unknown) (unknown) (no date) (unknown) (unknown) and below (units unknown) (unknown) (unknown) (no date) (unknown) (unknown) and neck separately. For radiation dose reduction, the following was used:? (units unknown) (unknown) (unknown) (no date) (unknown) (unknown) and (units unknown) (unknown) (unknown) (no date) (unknown) (unknown) and/or volume rendering reformats were acquired of the central intracranial (units unknown) (unknown) (unknown) (no date) (unknown) (unknown) appear patent bilaterally.? There is mild atherosclerotic calcification along (units unknown) (unknown) (unknown) (no date) (unknown) (unknown) appears patent bilaterally.? No high-grade stenosis, occlusion, or filling (units unknown) (unknown) (unknown) (no date) (unknown) (unknown) appears (units unknown) (unknown) (unknown) (no date) (unknown) (unknown) arch through the [place].? Post-contrast 4.5 mm thick sections then re (units unknown) (unknown) (unknown) (no date) (unknown) (unknown) arise from (units unknown) (unknown) (unknown) (no date) (unknown) (unknown) arteries appear gleason nt bilaterally.? The anterior communicating artery also (units unknown) (unknown) (unknown) (no date) (unknown) (unknown) arteries (units unknown) (unknown) (unknown) (no date) (unknown) (unknown) arthropathy.? (units unknown) (unknown) (unknown) (no date) (unknown) (unknown) automated (units unknown) (unknown) (unknown) (no date) (unknown) (unknown) be quite elevated bu t she is asymptomatic without end-organ damage. Blood (units unknown) (unknown) (unknown) (no date) (unknown) (unknown) bilaterally, no visu al changes, no facial droop (units unknown) (unknown) (unknown) (no date) (unknown) (unknown) both widely patent.? The internal carotid arteries demonstrate normal calibers (units unknown) (unknown) (unknown) (no date) (unknown) (unknown) caliber, and join to form a patent basilar artery.? The posterior cerebral (units unknown) (unknown) (unknown) (no date) (unknown) (unknown) can be discharged. (units unknown) (unknown) (unknown) (no date) (unknown) (unknown) carotid arteries demonstrate normal caliber and courses.? The bifurcation (units unknown) (unknown) (unknown) (no date) (unknown) (unknown) cavernous segments o f the internal carotid arteries.? The paired anterior (units unknown) (unknown) (unknown) (no date) (unknown) (unknown) celecoxib 200 mg capsule (Celebrex) 200 mg PO DAILY #30 caps 01/05/18 (units unknown) (unknown) (unknown) (no date) (unknown) (unknown) celecoxib [Celebrex] 200 mg capsule (units unknown) (unknown) (unknown) (no date) (unknown) (unknown) cerebral aneurysms identified. (units unknown) (unknown) (unknown) (no date) (unknown) (unknown) cerebral volume loss , with resultant ventricular and sulcal prominence.? (units unknown) (unknown) (unknown) (no date) (unknown) (unknown) cerebral (units unknown) (unknown) (unknown) (no date) (unknown) (unknown) chest pain palpitations abdominal pain or other symptoms. No prior history of (units unknown) (unknown) (unknown) (no date) (unknown) (unknown) common (units unknown) (unknown) (unknown) (no date) (unknown) (unknown) concern for electrolyte abnormality or infection. She is tolerating fluid and (units unknown) (unknown) (unknown) (no date) (unknown) (unknown) continue to check yo ur blood pressure at home it was noted to be mildly (units unknown) (unknown) (unknown) (no date) (unknown) (unknown) courses and calibers .? They join to form a patent basilar artery.? (units unknown) (unknown) (unknown) (no date) (unknown) (unknown) courses.? (units unknown) (unknown) (unknown) (no date) (unknown) (unknown) defects.? No (units unknown) (unknown) (unknown) (no date) (unknown) (unknown) deficits. She currently has stroke scale 0. Symptoms lasted about 1 hour and (units unknown) (unknown) (unknown) (no date) (unknown) (unknown) demonstrate normal (units unknown) (unknown) (unknown) (no date) (unknown) (unknown) difficulty speaking or any new, worsening or concerning symptoms (units unknown) (unknown) (unknown) (no date) (unknown) (unknown) electrolyte abnormality your RAYSHAWN negative troponin. Blood pressure is noted to (units unknown) (unknown) (unknown) (no date) (unknown) (unknown) elevated. (units unknown) (unknown) (unknown) (no date) (unknown) (unknown) equal bilaterally, n o dysarthria or aphasia, sensation in tact to soft touch (units unknown) (unknown) (unknown) (no date) (unknown) (unknown) exposure control, adjustment of mA and/or kV according to patient size.? (units unknown) (unknown) (unknown) (no date) (unknown) (unknown) facet joint (units unknown) (unknown) (unknown) (no date) (unknown) (unknown) from the foramen magnum to the vertex.? 3-dimensional (units unknown) (unknown) (unknown) (no date) (unknown) (unknown) guarding or rebound. (units unknown) (unknown) (unknown) (no date) (unknown) (unknown) hardware.? (units unknown) (unknown) (unknown) (no date) (unknown) (unknown) her lisinopril dose from 10 mg 20 mg seem to help. At this time she ambulates (units unknown) (unknown) (unknown) (no date) (unknown) (unknown) hydrochlorothiazide 12.5 MG capsule (units unknown) (unknown) (unknown) (no date) (unknown) (unknown) hydrochlorothiazide 12.5 mg capsule 12.5 mg PO SEE INSTRUCTIONS ##0 12/02/16 (units unknown) (unknown) (unknown) (no date) (unknown) (unknown) hydrocodone 5 mg-acetaminophen 325 1 tab PO Q4HP PRN #60 tabs 12/13/16 (units unknown) (unknown) (unknown) (no date) (unknown) (unknown) hydrocodone-acetamin op hen [[place]] 5 MG/325 MG tablet (units unknown) (unknown) (unknown) (no date) (unknown) (unknown) in the ED I suspect a vertigo episode rather than a posterior stroke. No other (units unknown) (unknown) (unknown) (no date) (unknown) (unknown) intact (units unknown) (unknown) (unknown) (no date) (unknown) (unknown) intracranial enhancement.? (units unknown) (unknown) (unknown) (no date) (unknown) (unknown) lesions.? (units unknown) (unknown) (unknown) (no date) (unknown) (unknown) lisinopril 10 MG tablet (units unknown) (unknown) (unknown) (no date) (unknown) (unknown) lisinopril 10 mg tablet 10 mg PO BID ##0 12/02/16 05/10/18 (units unknown) (unknown) (unknown) (no date) (unknown) (unknown) lisinopril tonight (units unknown) (unknown) (unknown) (no date) (unknown) (unknown) loss. (units unknown) (unknown) (unknown) (no date) (unknown) (unknown) qbxrfoc-bjzuwvblx-yb oj ection (MIP) (units unknown) (unknown) (unknown) (no date) (unknown) (unknown) metformin 500 mg tablet,extended 500 mg PO BID ##0 12/02/16 05/10/18 (units unknown) (unknown) (unknown) (no date) (unknown) (unknown) metformin [Glucophag e XR] 500 MG tablet extended release 24 hr (units unknown) (unknown) (unknown) (no date) (unknown) (unknown) mg tablet ([place]) (units unknown) (unknown) (unknown) (no date) (unknown) (unknown) moist mucous membranes (units unknown) (unknown) (unknown) (no date) (unknown) (unknown) more superior extracranial portions of both vertebral arteries also demonstrate (units unknown) (unknown) (unknown) (no date) (unknown) (unknown) normal (units unknown) (unknown) (unknown) (no date) (unknown) (unknown) now being in the ED symptoms have completely resolved. CT angio was negative. (units unknown) (unknown) (unknown) (no date) (unknown) (unknown) occlusion, or fillin g defects.? No cerebral aneurysms identified. (units unknown) (unknown) (unknown) (no date) (unknown) (unknown) of the cervical lordosis.? There is multilevel degenerative disc disease and (units unknown) (unknown) (unknown) (no date) (unknown) (unknown) of the (units unknown) (unknown) (unknown) (no date) (unknown) (unknown) omega 3-jds-mfb-fish oil 1,000 mg 1,200 mg PO QDAY ##0 12/02/16 05/10/18 (units unknown) (unknown) (unknown) (no date) (unknown) (unknown) omega 0-lbz-srn-fish oil [Fish Oil] 1,000 MG capsule (units unknown) (unknown) (unknown) (no date) (unknown) (unknown) omeprazole 20 MG capsule,delayed release(DR/EC) (units unknown) (unknown) (unknown) (no date) (unknown) (unknown) omeprazole 20 mg capsule,delayed 20 mg PO QDAY ##0 12/02/16 05/10/18 (units unknown) (unknown) (unknown) (no date) (unknown) (unknown) patent. The middle cerebral arteries appear patent bilaterally.? No high-grade (units unknown) (unknown) (unknown) (no date) (unknown) (unknown) patent.? The (units unknown) (unknown) (unknown) (no date) (unknown) (unknown) periventricular and deep white matter hypodensities consistent with mild chronic (units unknown) (unknown) (unknown) (no date) (unknown) (unknown) presenting today wit h sudden onset dizziness. She reports that she just got her (units unknown) (unknown) (unknown) (no date) (unknown) (unknown) pressure does come down after her dose of lisinopril. I did actually increase (units unknown) (unknown) (unknown) (no date) (unknown) (unknown) regions are (units unknown) (unknown) (unknown) (no date) (unknown) (unknown) release 24 hr (Glucophage XR) (units unknown) (unknown) (unknown) (no date) (unknown) (unknown) release (units unknown) (unknown) (unknown) (no date) (unknown) (unknown) right thyroid lobe with multiple ill-defined hypoattenuating nodules. (units unknown) (unknown) (unknown) (no date) (unknown) (unknown) simvastatin 20 MG tablet (units unknown) (unknown) (unknown) (no date) (unknown) (unknown) simvastatin 20 mg tablet 20 mg PO HS ##0 12/02/16 05/10/18 (units unknown) (unknown) (unknown) (no date) (unknown) (unknown) sinuses.? (units unknown) (unknown) (unknown) (no date) (unknown) (unknown) small (units unknown) (unknown) (unknown) (no date) (unknown) (unknown) stenosis, (units unknown) (unknown) (unknown) (no date) (unknown) (unknown) straightening (units unknown) (unknown) (unknown) (no date) (unknown) (unknown) subcortical, (units unknown) (unknown) (unknown) (no date) (unknown) (unknown) tablet,extended release (units unknown) (unknown) (unknown) (no date) (unknown) (unknown) talk about she was sitting at home she felt extremely dizzy unable to stand and (units unknown) (unknown) (unknown) (no date) (unknown) (unknown) the administration o f intravenous contrast, 1 mm thick sections acquired from (units unknown) (unknown) (unknown) (no date) (unknown) (unknown) the aortic arch.? Th e origins of the common carotid arteries appear patent.? The (units unknown) (unknown) (unknown) (no date) (unknown) (unknown) the aortic (units unknown) (unknown) (unknown) (no date) (unknown) (unknown) the (units unknown) (unknown) (unknown) (no date) (unknown) (unknown) through XII grossly intact. Good nygttm-rq-pbkr, good jsjj-ti-bpci, strength (units unknown) (unknown) (unknown) (no date) (unknown) (unknown) vasculature (units unknown) (unknown) (unknown) (no date) (unknown) (unknown) vertex.? After (units unknown) (unknown) (unknown) (no date) (unknown) (unknown) vertigo. Overall feeling significantly better. (units unknown) (unknown) (unknown) (no date) (unknown) (unknown) vessel ischemic changes.? The acosta-white matter junction appears preserved.? No (units unknown) (unknown) (unknown) (no date) (unknown) (unknown) walk the room was spinning she got nauseous and vomiting. Symptoms lasted for (units unknown) (unknown) (unknown) (no date) (unknown) (unknown) wave inversions (units unknown) (unknown) Social History date description facility 2022-08-22 00:00 Never smoked tobacco ([facility] Vital Signs date measurement value units 2022-08-22 00:00 BMI 25.2 kg/m2 2022-08-22 00:00 BP_diastolic 87 mmHg 2022-08-22 00:00 BP_systolic 172 mmHg 2022-08-22 00:00 heart_rate 68 /min 2022-08-22 00:00 height_metric 157.48 cm 2022-08-22 00:00 height_standard 62 in 2022-08-22 00:00 o2_saturation 97 % 2022-08-22 00:00 respiration_rate 18 /min 2022-08-22 00:00 temperature_metric 36.39 C 2022-08-22 00:00 temperature_standard 97.5 F 2022-08-22 00:00 weight_metric 62.59 kg 2022-08-22 00:00 weight_standard 137.99 lb
[2022-09-14 09:14] LABS: AMPHETAMINE SCREEN,URINE NEGATIVE (NEGATIVE); BARBITURATE SCREEN,UR NEGATIVE (NEGATIVE); BENZODIAZEPINES SCREEN, URINE NEGATIVE (NEGATIVE); COCAINE SCREEN URINE NEGATIVE (NEGATIVE); METHADONE SCREEN, URINE NEGATIVE (NEGATIVE); METHAMPHETAMINES SCREEN, URINE NEGATIVE (NEGATIVE); OPIATE SCREEN, URINE NEGATIVE (NEGATIVE); OXYCODONE SCREEN, URINE NEGATIVE (NEGATIVE); PROPOXYPHENE SCREEN, URINE NEGATIVE (NEGATIVE); THC CANNABINOID SCREEN, URINE NEGATIVE (NEGATIVE); TRICYCLIC ANTIDEPRESSANT,URINE NEGATIVE (NEGATIVE)
[2022-09-14 09:21] LABS: BACTERIA,URINE Many /HPF (None Seen); CASTS, URINE 0-2 Hyaline Casts /LPF; EPITHELIAL CELLS,UR RARE Transitional /HPF (<= Few); SQUAMOUS EPITHELIAL CELL,UR NONE SEEN (<= Few); WBC CLUMPS,URINE PRESENT
[2022-09-14 09:28] VITALS: BP 175/94
== END 2022-09-14 09:38 | disposition short-term general hospital (02) ==
LOC: EDUNIT# → ED 08:00
DX: S06.9X9A Unspecified intracranial injury with loss of consciousness of unspecified duration, initial encounter (principal); V47.0XXA Car driver injured in collision with fixed or stationary object in nontraffic accident, initial encounter; I10 Essential (primary) hypertension; E11.9 Type 2 diabetes mellitus without complications; Z79.84 Long term (current) use of oral hypoglycemic drugs
CPT/HCPCS: 36415; 51702; 71045; 80053; 80306; 81001; 83690; 85025; 85610; 87086; 93005; 94002; 96374; 96375; 99285; G0480; 80320; 81003; 82803

== ENCOUNTER 2023-03-18 17:44 | Outpatient (CLI) | payer MEDICARE, OTHER | END 2023-03-18 17:45 | disposition E | LOC: EMS 17:44 | DX: I46.9 Cardiac arrest, cause unspecified (principal) | CPT/HCPCS: A0425; A0428 ==